=== PATIENT | male | born 1950 | race Hispanic/Latino ===

== ENCOUNTER 2018-05-11 10:44 | Inpatient (IN) | payer MEDICARE, BC ==
--- NOTE | 2018-05-11 11:34 | ED PDOC ---
Arrival/HPI - General Chief Complaint: Chest Pain Time Seen by Provider: 05/11/18 11:13 Historian: Patient, Spouse () - History of Present Illness Narrative History of Present Illness (Text): 05/11/18 11:34 A 67 year old male, whose past medical history includes lymphoma for 40 yrs(chronic swelling to lower extremities bilaterally), presents to the emergency department complaining of chest pain and shortness of breath. Was seen by Dr. Vigil, who, per patient, stated he may have myloma and was referred to Dr. Tao, Patient denies any abdominal pain, or any other complaints at this time. Mentions he takes 10 pills of Aspirin per day (5 in the morning, 5 in the evening, 4000 mg in total, for the past 10 yrs). PMD: Dr. Garcia Production Line Technician: Dr. Vigil Past Medical History - Provider Review Nursing Documentation Reviewed: Yes - Cardiac Hx Hypertension: Yes - Musculoskeletal/Rheumatological Hx Musculoskeletal Disorders: Yes Other/Comment: Lympedema - Psychiatric Hx Substance Use: No - Anesthesia Hx Anesthesia: No Hx Anesthesia Reactions: No Hx Malignant Hyperthermia: No Family/Social History - Physician Review Nursing Documentation Reviewed: Yes Family/Social History: No Known Family HX Smoking Status: Never Smoked Hx Alcohol Use: No Hx Substance Use: No Allergies/Home Meds Allergies/Adverse Reactions: Allergies No Known Allergies Allergy (Verified 05/11/18 10:53) Home Medications: Home Meds Medication Instructions Recorded Confirmed Aspirin/Caffeine [Anacin 400-32 mg 5 tab PO [facility] 05/11/18 05/11/18 Tablet] Dicloxacillin [Dynapen] 500 mg PO BID PRN 05/11/18 05/11/18 Levofloxacin [Levaquin] 500 mg PO BID PRN 05/11/18 05/11/18 Review of Systems - Physician Review All systems were reviewed & negative as marked: Yes - Review of Systems Respiratory: SOB Cardiovascular: Chest Pain Gastrointestinal: absent: Abdominal Pain Physical Exam - Physical Exam Narrative Physical Exam (Text): Gen: VS reviewed, alert, well developed, well nourished, nontoxic, mild dis tress. ENT: normal pharynx. Eye: EOMI, PERRL. Neck: no JVD, supple, no adenopathy. CV: regular rate, regular rhythm, no rubs, no murmur, no gallops, S1, S2, pulses equal and strong. Pulm: no distress, clear to auscultation, no wheeze, no rhonchi, breath sounds equal, no rales. Abd: soft, nontender, no guarding, no rebound, no rigidity, normal bowel sounds. Ext: lymphoma edema to lower extremities bilaterally. Skin: good color, no rash, no cyanosis. Psych: responds appropriately to questions, normal affect. Neuro: oriented x 3, CN2-12 intact grossly, motor intact, sensation intact. Vital Signs Temp Pulse Resp BP Pulse Ox 05/11/18 11:06 97.5 F L 79 18 168/98 H 100 Medical Decision Making ED Course and Treatment: 05/11/18 11:35 Impression: 67 year old male with chest pain and shortness of breath. Plan: -- Angio Chest CT -- Labs -- Reassess and disposition Progress Notes: 05/11/18 16:[address] garcia, tele obs, patient to be admitted for intractable pain of the chest. patient is currently being worked up for multiple myeloma. consult to dr. villalobos. patient already takes 5 aspirin BID, i attempted to address to the patient that is too much aspirin but the patient has it wrapped in his own opinion that this is ok 05/11/18 16:23 - RAD Interpretation Narrative RAD Interpretations (Text): 05/11/2018 14:[address] IMPRESSION: No evidence of acute central pulmonary embolus. Small right-sided effusion and mild right basilar atelectasis. Minor left basilar atelectasis with questionable trace left effusion There is apparent diffuse demineralization however there are more lucent areas throughout the visualized thoracic spine including the ribs and sternum.. Clinical correlation recommended to exclude the possibility of a infiltrative marrow disease process including but not limited to lymphoma -leukemia or myeloma. Dictator: Rocky Gardner DO Radiology Orders: 05/11/18 11:26 ANGIO CHEST PE PROTOCOL [CT] Stat - EKG Interpretation EKG Interpretation (Text): 05/11/18 12:42 11:02: NSR AT 86 BPM,NML QRS,NML AXIS,NO acute sttw abn Interpreted by ED Physician: Yes - Scribe Statement The provider has reviewed the documentation as recorded by the John Zhu Provider Scribe Attestation: All medical record entries made by the Scribe were at my direction and personally dictated by me. I have reviewed the chart and agree that the record accurately reflects my personal performance of the history, physical exam, medical decision making, and the department course for this patient. I have also personally directed, reviewed, and agree with the discharge instructions and disposition. Disposition/Present on Arrival - Present on Arrival Any Indicators Present on Arrival: No History of DVT/PE: No History of Uncontrolled Diabetes: No Urinary Catheter: No History of Decub. Ulcer: No History Surgical Site Infection Following: None - Disposition Have Diagnosis and Disposition been Completed?: Yes Diagnosis: Chest pain Disposition: HOSPITALIZED Disposition Time: 16:20 Patient Plan: Observation Patient Problems: Current Active Problems Problem Status Onset Chest pain Acute Condition: STABLE Discharge Instructions (ExitCare): Chest Pain (ED) Forms: [facility] (Danish)
[2018-05-11 11:49] LABS: BASO # 0.02 K/mm3 (0.0-2.0); BASO % 0.3 % (0.0-3.0); EOS # 0.1 (0.0-0.7); EOS % 1.4 % (1.5-5.0); HEMOGLOBIN 10.5 g/dL (14.0-18.0); LYMPH # 1.3 (1.2-3.4); LYMPH % 19.8 % (22.0-35.0); MEAN CELL VOLUME 94.7 fl (80.0-105.0); MEAN CORPUSCULAR HEMOGLOBIN 30.7 pg (25.0-35.0); MEAN CORPUSCULAR HGB CONC 32.4 g/dl (31.0-37.0); MEAN PLATELET VOLUME 9.2 fl (7.0-11.0); MONO # 0.4 (0.1-0.6); RBC 3.42 10^6/uL (3.5-6.1); RED CELL DISTRIBUTION WIDTH 16.2 % (11.5-14.5); WHITE BLOOD COUNT 6.5 10^3/uL (4.5-11.0)
[2018-05-11 11:52] LABS: INR 1.35; PARTIAL THROMBOPLASTIN TIME 47.2 Seconds (26.9-38.3); PROTHROMBIN TIME 15.3 SECONDS (9.4-12.5)
[2018-05-11 11:54] LABS: ALB/GLOB RATIO 0.7 (1.1-1.8)
[2018-05-11 11:58] LABS: ALBUMIN 4.2 g/dL (3.0-4.8); ALT/SGPT < 6 U/L (7-56); AST/SGOT 28 U/L (17-59); BLOOD UREA NITROGEN 25 mg/dL (7-21); GFR NON-AFRICAN AMERICAN > 60
[2018-05-11 12:05] LABS: TROPONIN I < 0.01 ng/mL
--- NOTE | 2018-05-11 14:31 | CT ---
Date of service: 05/11/2018 PROCEDURE: CT Chest with contrast (Pulmonary Angiogram) HISTORY: Pulmonary embolism COMPARISON: None available. TECHNIQUE: Axial computed tomography images were obtained of the chest in the pulmonary arterial phase of enhancement. Coronal and sagittal reformatted images were created and reviewed. Intravenous contrast dose: Radiation dose: Total exam DLP = 443.29 mGy-cm. This CT exam was performed using one or more of the following dose reduction techniques: Automated exposure control, adjustment of the mA and/or kV according to patient size, and/or use of iterative reconstruction technique. FINDINGS: PULMONARY ARTERIES: The visualized pulmonary trunk, right and left main, lobar, segmental and proximal subsegmental branches of the pulmonary arteries are well opacified with no definitive filling defects seen suggest acute central pulmonary embolus. Pulmonary trunk measures approximately 2.6 cm. AORTA: Heart is enlarged.. No thoracic aortic aneurysm. Ascending thoracic aorta measures approximately 3.7 cm. Descending thoracic aorta measures approximately 2.7 cm. Mild aortic atherosclerotic calcification or mural plaque present. LUNGS: Patchy ground-glass opacity seen in the upper and lower lobes of; rule out air trapping of. In addition, there is a small right-sided effusion with mild right basilar atelectasis. Minimal left basilar atelectasis questionable trace left effusion. PLEURAL SPACES: As above. No pneumothorax. HEART: Heart is enlarged. There may be a small amount of fluid in the superior pericardial recess. No cardiomegaly. No significant pericardial effusion. LYMPH NODES: No significant mediastinal or hilar lymphadenopathy. Trachea midline and patent with no large central endoluminal lesions There is a small hiatal hernia. BONES, CHEST WALL: There is apparent diffuse demineralization however there are more lucent areas throughout the visualized thoracic spine including the ribs and sternum.. Clinical correlation recommended to exclude the possibility of a infiltrative marrow disease process including but not limited to lymphoma -leukemia or myeloma. OTHER FINDINGS: Unremarkable. . IMPRESSION: No evidence of acute central pulmonary embolus. Small right-sided effusion and mild right basilar atelectasis. Minor left basilar atelectasis with questionable trace left effusion There is apparent diffuse demineralization however there are more lucent areas throughout the visualized thoracic spine including the ribs and sternum.. Clinical correlation recommended to exclude the possibility of a infiltrative marrow disease process including but not limited to lymphoma -leukemia or myeloma.
--- NOTE | 2018-05-11 15:33 | CARD ---
APPROVED REPORT Date of service: 05/11/2018 EKG Measurement Heart [id number] <Conclusion> Normal sinus rhythm Normal ECG
[2018-05-11] MEDS ORDERED: Oxycodone/Acetaminophen 5/325 mg Tab PO STA ×2 (16:05→16:21)
[2018-05-11] MEDS: Oxycodone/Acetaminophen 5/325 mg Tab PO SCH ×2 (19:09→21:20)
[2018-05-11 20:03] VITALS: BMI 44.3
[2018-05-12] MEDS: Oxycodone/Acetaminophen 5/325 mg Tab PO SCH ×6 (01:21→21:04)
--- NOTE | 2018-05-12 01:45 | HP ---
DATE OF EXAM: 05/11/2018 HISTORY OF PRESENT ILLNESS: A 67-year-old white male with history of bilateral lymphedema, mild hypertension. Patient initially has been found because of sternal pain to have a serum protein electrophoresis that was positive for a large M spike suggesting with possible myeloma. Patient was being evaluated for possible bone marrow and Hematology evaluation. He developed worsening severe chest pain and some shortness of breath, came to emergency room and was found to have lytic lesions in the chest wall. First troponin was negative. Patient has been taking excessive doses of aspirin at home for many, many years. This will be held, so that the patient can have a bone marrow examination done and for cardiac evaluation. Patient also has a history of valvular heart disease and sees Dr. Thapa. Patient's symptoms have started approximately 1 to 2 weeks prior to admission with worsening sternal pain. Patient has no travel history. He is nonsmoker, nondrinker. He takes minimal medications, occasional antibiotics for cellulitis due to his lymphedema. REVIEW OF SYSTEMS: Positive for chest pain and shortness of breath. He denies any nausea, vomiting, or diarrhea. For GI, he denies. For pulmonary, he admits to shortness of breath. No sputum production. No hemoptysis. No wheezing. Cardiac is positive only for chest wall pain. No palpitations. No orthopnea. No dyspnea on exertion. No lightheadedness or dizziness. Neurological exam is essentially negative for headache. Negative for loss of strength or sensations in the upper and lower extremities. No syncope. Musculoskeletal is positive for chest wall pain and sternal pain. PHYSICAL EXAMINATION GENERAL: Shows a well developed, but obese white male in mild distress. HEENT: Essentially within normal limits. HEART: Reveals regular sinus rhythm, but systolic ejection murmur at left sternal border. CHEST: Clear to auscultation and percussion. There is tenderness on palpation of the sternum and the ribs. ABDOMEN: Obese, but benign. No hepatosplenomegaly. EXTREMITIES: Show marked lymphedema without cellulitis. NEUROLOGY: Grossly intact. IMPRESSION AND PLAN: A 67-year-old white male presenting with multiple lytic bony lesions, elevated total protein level, albumen positive, serum protein electrophoresis for an M spike, valvular heart disease, and nonspecific chest pain. Kavon Garcia MD [facility] # [id number]
[2018-05-12 07:03] LABS: IRON 61 ug/dL (45-180)
[2018-05-12 07:12] LABS: % IRON SATURATION 27 % (20-55); TOTAL IRON BINDING CAPACITY 224 ug/dL (261-462)
[2018-05-12 07:19] LABS: ALB/GLOB RATIO 0.8 (1.1-1.8); ALBUMIN 3.9 g/dL (3.0-4.8); ALT/SGPT < 6 U/L (7-56); AST/SGOT 45 U/L (17-59); BLOOD UREA NITROGEN 18 mg/dL (7-21); CALCIUM 10.8 mg/dL (8.4-10.5); GFR NON-AFRICAN AMERICAN > 60
[2018-05-12] MEDS ORDERED: Propofol 10 mg/ml Inj (20 ML) ONE (08:16)
[2018-05-12] MEDS ORDERED: Sodium Chloride 0.9% 100 ML IV SCH (09:30)
--- NOTE | 2018-05-12 09:35 | CON ---
DATE: 05/12/2018 REASON FOR CONSULTATION: Lytic lesion in the bones, rule out multiple myeloma. HISTORY OF PRESENT ILLNESS: Mr. Sears is a 67-year-old male admitted to the hospital with chest pain. He is complaining of chest pain around the chest. CT chest showed multiple lytic lesions. He is having chest pain for the past 2 weeks. He is not able to lay flat. Denies any back pain. He has chronic lymphedema of lower extremities for 40 years. PAST MEDICAL HISTORY: Hypertension, lymphedema, and chronic morbid obesity. PAST SURGICAL HISTORY: None. FAMILY HISTORY: Nonsmoker. No history of alcohol abuse. ALLERGIES: NO KNOWN DRUG ALLERGIES. HOME MEDICATIONS: Aspirin, Dynapen 500 mg p.o. twice a day and Levaquin 500 mg p.o. twice a day. REVIEW OF SYSTEMS: As per HPI. Rest of 12-point review of systems reviewed and negative. PHYSICAL EXAMINATION: GENERAL: Comfortable in bed, in no acute distress. VITAL SIGNS: Temperature 97.5, heart rate 79.5, respiratory rate 18 per minute and blood pressure 160/90 and pulse oximetry 100% on room air. Morbidly obese. No acute distress. CHEST: Air entry present and equal bilaterally. No added sounds. CARDIOVASCULAR: S1 and S2, normal. No murmur. No gallop. ABDOMEN: Soft and nontender. No hepatosplenomegaly. EXTREMITIES: Bilateral lymphedema. Chronic skin thickening. No active cellulitis. CENTRAL NERVOUS SYSTEM: Alert and oriented x3. No focal sensory motor deficit. Lymphadenopathy none. LABORATORY DATA: White count 6.5, hemoglobin 10.5, hematocrit 30.2 and platelets 249. Sodium 142, potassium 4.4, creatinine 1.1, calcium 10.8, calcium on admission 11, LDH 336. LFTs are within normal limits. Iron 61 and iron saturation 27. ASSESSMENT: 1. Lytic lesion in the rib cage. 2. Morbid obesity. 3. Hypertension. PLAN: Mr. Sears is a 67-year-old male. All the records on the [facility] reviewed. Review of records showed that his hemoglobin was normal until last year, he is anemic now with hemoglobin of 10.5. Calcium is elevated at 11. LDH normal with lytic lesion in the bone. We will do the workup for myeloma as serum protein electrophoresis immunofixation kappa and lambda light-chain assay, beta-2 microglobulin. Skeletal survey ordered for assessment of lytic lesions. We will await the bone survey, might need bone marrow aspiration biopsy. We will also order PFA with the next blood draw. Beta-2 microglobulin also ordered. I had discussed at length with Mr. Sears about the workup for multiple myeloma. He agreed with the plan. Thank you Dr. Garcia for allowing us to participate in Mr. Sears's care. Corinne Godinez MD
--- NOTE | 2018-05-12 11:25 | RAD ---
Date of service: 05/12/2018 PROCEDURE: Bone survey complete HISTORY: lytic lesions COMPARISON: TECHNIQUE: A complete bone survey was performed FINDINGS: Small well-defined lytic lesions can be seen in the skull. Lytic lesions are also seen in the distal humerus bilaterally with scalloping of the medullary surface of the cortical bone. Degenerative changes are seen in the lumbar spine with bony sclerosis at L2-3 on the right side. IMPRESSION: Lytic lesions in the skull and distal humerus
[2018-05-12 13:05] LABS: FERRITIN 69.3 ng/mL
--- NOTE | 2018-05-12 15:27 | PN ---
DATE: 05/12/2018 SUBJECTIVE: A 67-year-old white male admitted to the hospital with chest pain, back pain, and nausea. The patient was found to have a M spike on serum protein electrophoresis consistent with some multiple myeloma. The patient also found to have a CAT scan of the chest showing severe and cystic changes most likely cause of the chest pain. The patient also has a calcium of 11. The patient was restarted on IV hydration to control his calcium. Case was discussed with for possible treatments of hypercalcemia in a patient with myeloma. Renal function is stable at 18 and 1.1. Hemoglobin is down to 10.5. White count is 6.5. Total protein is over 10. Yesterday, the patient has an M spike on his serum protein electrophoresis and the patient is having a bone scan. Kavon Garcia MD
[2018-05-12] MEDS ORDERED: Sodium Chloride 0.9% 1,000 ML IV SCH (19:00)
--- NOTE | 2018-05-12 21:14 | CARD ---
APPROVED REPORT Date of service: 05/12/2018 EXAM: Two-dimensional and M-mode echocardiogram with Doppler and color Doppler. INDICATION Chest Pain 2D DIMENSIONS Left Atrium (2D)4.5 (1.6-4.0cm)IVSd1.4 (0.7-1.1cm) LVDd4.3 (3.9-5.9cm)LVOT Diameter1.8 (1.8-2.4cm) PWd1.3 (0.7-1.1cm)LVDs2.9 (2.5-4.0cm) FS (%) 32.5 %LVEF (%)61.1 (>50%) M-Mode DIMENSIONS Aortic Root2.80 (2.2-3.7cm)Aortic Cusp Exc.1.30 (1.5-2.0cm) Aortic Valve AoV Peak Vpntdlyb282.0cm/sAoV VTI54.9cmAO Peak GR.30mmHg LVOT Peak Mcxizpon513.0cm/sLVOT VTI33.10cmAO Mean GR.16mmHg ISAURO (VMAX)1.59gv7ZTP (VTI)1.53cm2 Mitral Valve MV E Wppyueqv72.9cm/sMV A Nositvdc758.0cm/sE/A ratio0.9 TDI Lateral E' Peak V12.60cm/sMedial E' Peak V8.68cm/sE/Lateral E'6.9 E/Medial E'10.0 Pulmonary Valve PV Peak Fdmtyfmm40.4cm/sPV Peak Grad.3mmHg Tricuspid Valve TR Peak Xeltyctk787ko/sRAP MGHJIBZP51ptWcPY Peak Gr.28mmHg [id number] LEFT VENTRICLE The left ventricle is normal size. There is mild concentric left ventricular hypertrophy. The left ventricular function is normal. The left ventricular ejection fraction is within the normal range. There is normal LV segmental wall motion. Transmitral Doppler flow pattern is Grade I-abnormal relaxation pattern. RIGHT VENTRICLE The right ventricle is normal size. There is normal right ventricular wall thickness. The right ventricular systolic function is normal. ATRIA The left atrium is mildly dilated. The right atrium size is normal. AORTIC VALVE The aortic valve is moderately sclerotic. There is trace aortic regurgitation. There is mild valvular aortic stenosis. MITRAL VALVE The mitral valve is mildly thickened. There is no mitral valve regurgitation noted. There is no mitral valve stenosis. TRICUSPID VALVE There is mild tricuspid regurgitation. There is mild pulmonary hypertension. PULMONIC VALVE There is trace pulmonic valvular regurgitation. GREAT VESSELS The aortic root is normal in size. The IVC is normal in size and collapses >50% with inspiration. <Conclusion> There is mild concentric left ventricular hypertrophy. The left ventricular function is normal. The left ventricular ejection fraction is within the normal range. There is normal LV segmental wall motion. Transmitral Doppler flow pattern is Grade I-abnormal relaxation pattern. There is mild valvular aortic stenosis. There is mild tricuspid regurgitation. There is mild pulmonary hypertension.
[2018-05-13] MEDS: Oxycodone/Acetaminophen 5/325 mg Tab PO SCH ×4 (01:15→10:04)
[2018-05-13] MEDS: Sodium Chloride 0.9% 1,000 ML IV SCH ×3 (03:00→20:00)
[2018-05-13] MEDS ORDERED: Pantoprazole 40 mg EC Tab PO SCH (06:00)
[2018-05-13] MEDS: Calcium-Vit D 250 mg-125 Units Tab UD PO SCH (10:08)
[2018-05-13] MEDS ORDERED: Zoledronic Acid 4 MG in Sodium Chloride 0.9% 100 ML IV ONE (10:30)
[2018-05-13 11:36] LABS: ALBUMIN (PEP) 2.9 g/dL (3.8-4.8); ALPHA-1-GLOBULIN (PEP) 0.3 g/dL (0.2-0.3)
--- NOTE | 2018-05-13 13:40 | PN ---
DATE: 05/13/2018 SUBJECTIVE: A 67-year-old white male admitted to the hospital with severe chest pain, hyperproteinemia, found to have multiple myeloma awaiting bone marrow examination. Bone scan yesterday showed multiple lytic lesions, severe chest pain, sternal pain, rib pain and back pain. The patient is afebrile. Vital signs are stable. His calcium level has dropped. He is being hydrated. He is for a bone marrow today and possible beginning of treatment to alleviate the pain. PHYSICAL EXAMINATION GENERAL: Shows a well developed obese white male in moderate pain 6/10 when moving and 8/10 with coughing or congestion. CHEST: Clear to auscultation and percussion. HEART: Regular sinus rhythm. EXTREMITIES: Still chronic lymphedema. Kavon Garcia MD
[2018-05-13] MEDS: oxyCODONE 5 mg Immediate Release Tab PO PRN (15:28)
[2018-05-13] MEDS ORDERED: Midazolam 2 MG/2 ML VIAL ONE (18:24)
[2018-05-13] MEDS ORDERED: Lidocaine 1% 5ml Abboject ONE (18:25)
[2018-05-13] MEDS ORDERED: Midazolam 2 MG/2 ML VIAL IVP ONE (18:45)
[2018-05-13] MEDS ORDERED: Lidocaine 5% Patch TD STA (20:46)
--- NOTE | 2018-05-13 21:06 | CT ---
PROCEDURE: CT guided pelvic bone marrow aspiration and biopsy HISTORY: Multiple myeloma PHYSICIAN(S): Everton Win MD. TECHNIQUE: The relative risks and indications of the procedure were explained to the patient and his and consent obtained. The patient was placed prone on the CT scanner and preliminary images through the pelvis obtained. Conscious sedation and monitoring were provided throughout the procedure by a nurse. The right posterior superior iliac spine was selected for bone marrow aspiration and biopsy. A posterior approach was selected and the area prepped and draped in the usual sterile fashion. 1% Xylocaine was used to anesthetize the skin and soft tissues. An on control needle was advanced to the right posterior superior iliac spine and its position confirmed with CT. The needle was advanced through the cortex and a bone marrow aspiration performed. A blood clot was also obtained. Next a long core biopsy was performed with the on control needle. The patient tolerated the procedure well IMPRESSION: 1. CT-guided pelvic bone marrow aspiration and biopsy as described above.
--- NOTE | 2018-05-14 00:34 | CON ---
DATE: 05/13/2018 REQUESTING PHYSICIAN: Dr. Garcia REASON FOR CONSULTATION: Chest pain. HISTORY: This is a 67-year-old man known to me from prior evaluation with a history of chronic lymphedema and hypertension, who has had worsening of bony pain including retrosternal chest discomfort. Recent blood work showed elevated protein with a large M spike suggestive of myeloma. He has been admitted for evaluation. Cardiac evaluation was requested. PAST HISTORY: Notable for the problems mentioned above. MEDICATIONS AT HOME: Include aspirin and occasional antibiotic for leg cellulitis. ALLERGIES: NONE. SOCIAL HISTORY: Does not smoke or drink. He is , lives with his . FAMILY HISTORY: Unremarkable for premature heart disease. REVIEW OF SYSTEMS: Ten-point review of systems is notable for mainly problems mentioned above. He has had significant weight loss recently. PHYSICAL EXAMINATION: GENERAL: He is an obese middle-aged man. VITAL SIGNS: His blood pressure is 148/76 with pulse of 70 and sinus, respirations are 16. He is afebrile. HEENT: Normocephalic, atraumatic. NECK: Supple. CHEST: Few scattered rhonchi heard. HEART: PMI, reveals distant tones with no pathological murmur or gallops audible. ABDOMEN: Soft, obese, nontender, normoactive bowel sounds. EXTREMITIES: Chronic lymphedema changes. PSYCHIATRIC: Normal mood and affect. NEUROLOGIC: Alert and oriented x3. He does have diffuse body aches. DIAGNOSTIC DATA: White count 6.5, hemoglobin and hematocrit of 10.5 and 32.4 with a platelet count 249,000. PT and PTT of 15.3 and 47.2. Potassium 4.4. BUN and creatinine of 18 and 1.1. Calcium is 10.8. Two sets of cardiac enzymes are negative. Protein was 10.2. PSA 1.9. Electrocardiogram reveals sinus rhythm with no acute abnormalities. The echocardiogram reveals mild concentric LVH with normal LV size systolic function, mild aortic stenosis present. A bone density survey reveals multiple lytic lesions in the skull as well as distal humerus and ribs. IMPRESSION: 1. Chest pain, appears most consistent with bony pain in patient with high likelihood of multiple myeloma, doubt any cardiac role. 2. Mild aortic stenosis. 3. Chronic lymphedema. RECOMMENDATIONS: No further cardiac workup is necessary at the present time. The patient is scheduled for bone marrow biopsy later today. I agree with present management and plan. He is stable from a cardiac standpoint to proceed with this and any further workup necessary. Thank you for this consultation. We will be happy to see during his hospital course as needed. Adeel Thapa MD
[2018-05-14] MEDS: Pantoprazole 40 mg EC Tab PO SCH (09:38)
[2018-05-14] MEDS: Calcium-Vit D 250 mg-125 Units Tab UD PO SCH (09:38)
[2018-05-14 10:06] LABS: ALB/GLOB RATIO 0.7 (1.1-1.8); ALT/SGPT < 6 U/L (7-56); AST/SGOT 24 U/L (17-59); BLOOD UREA NITROGEN 11 mg/dL (7-21); GFR NON-AFRICAN AMERICAN > 60
--- NOTE | 2018-05-14 11:09 | PN ---
DATE: 05/14/2018 SUBJECTIVE: A 67-year-old white male admitted hospital with severe musculoskeletal pain due to cystic lesions from myeloma. The patient had positive serum protein electrophoresis for IgA. She had severe M spike. The patient also had a bone arrow done by Dr. Everton Win yesterday, the patient tolerating procedure well. The patient was given zoledronic acid by Dr. Godinez for stabilization of the bone metastases. The patient also has severe chest pain and back pain. PLAN: Discuss bone marrow and start myeloma PEPE. Kavon Garcia MD
[2018-05-14] MEDS: Sodium Chloride 0.9% 1,000 ML IV SCH (11:57)
[2018-05-14] MEDS: oxyCODONE 5 mg Immediate Release Tab PO PRN ×2 (12:13→23:02)
--- NOTE | 2018-05-14 14:03 | CP.PCM.APN ---
Subjective - Date & Time of Evaluation Date of Evaluation: 05/14/18 Time of Evaluation: 09:20 - Subjective Subjective: Pt. seen and examined , sitting up in chair, at bedside. Is s/p bone marrow bx, complaints of severe sternal pain rad around to back, denied dyspnea, appears uncomfortable. RR easy and unlabored. Objective - Vital Signs/Intake and Output Vital Signs (last 24 hours): Temp Pulse Resp BP Pulse Ox 99.2 F 88 20 151/90 H 99 05/14/18 08:31 05/14/18 08:31 05/14/18 08:31 05/14/18 08:31 05/14/18 08:31 Intake and Output: 05/14/18 05/14/18 06:59 18:59 Intake Total 100 Output Total 600 Balance -500 - Medications Medications: Current Medications Acetaminophen (Tylenol 325mg Tab) 650 mg PO Q4 PRN PRN Reason: Pain, Mild (1-3) Calcium/Vitamin D (Oscal-D 250 Mg-125 Units Tab) 1 tab PO DAILY [facility] Last Admin: 05/14/18 09:38 Dose: 1 tab Docusate Sodium (Colace) 100 mg PO DAILY [facility] Last Admin: 05/14/18 09:38 Dose: 100 mg Sodium Chloride (Sodium Chloride 0.9%) 1,000 mls @ 125 mls/hr IV .Q8H [facility] Last Admin: 05/14/18 11:57 Dose: 125 mls/hr Ondansetron HCl (Zofran Inj) 4 mg IVP Q6H PRN PRN Reason: Nausea/Vomiting Last Admin: 05/12/18 09:35 Dose: 4 mg Oxycodone HCl (Oxycodone Immediate Release Tab) 5 mg PO Q4H PRN PRN Reason: Pain, severe (8-10) Last Admin: 05/14/18 12:13 Dose: 5 mg Pantoprazole Sodium (Protonix Ec Tab) 40 mg PO ACB [facility] Last Admin: 05/14/18 09:38 Dose: 40 mg - Labs Labs: 05/11/18 11:24 05/14/18 08:00 PT 15.3 SECONDS (9.4-12.5) H 05/11/18 11:24 INR 1.35 05/11/18 11:24 APTT 47.2 Seconds (26.9-38.3) H 05/11/18 11:24 - Constitutional Appears: Well, Non-toxic - Head Exam Head Exam: NORMOCEPHALIC - Eye Exam Eye Exam: absent: Conjunctival injection, EOMI, Normal appearance, Nystagmus, Periorbital swelling, Periorbital tenderness, PERRL, Scleral icterus - ENT Exam ENT Exam: absent: Mucous Membranes Dry, Mucous Membranes Moist, Normal Exam, Normal External Ear Exam, Normal Oropharynx, TM's Normal Bilaterally - Neck Exam Neck Exam: Full ROM - Respiratory Exam Respiratory Exam: Clear to Ausculation Bilateral, NORMAL BREATHING PATTERN - Cardiovascular Exam Cardiovascular Exam: REGULAR RHYTHM, +S1, +S2 - GI/Abdominal Exam GI & Abdominal Exam: Soft, Normal Bowel Sounds - Rectal Exam Rectal Exam: Deferred - Exam Exam: absent: Circumcision, NORMAL INSPECTION, Scrotal Swelling, Testicular Tenderness, Uretheral Discharge, Testicular Vertical Lie, Bladder Distension External exam: absent: Ecchymosis, Erythema, Lacerations, Lesions, NORMAL EXTERNAL EXAM, Swelling Speculum exam: absent: Cervical Discharge, Erythema, Foreign Body, Laceration, NORMAL SPECULUM EXAM, Tissue, Vaginal Bleeding, Vaginal Discharge Bimanual exam: absent: Adenexal Mass, Adnexal, Cervical Motion Tendernes, NORMAL BIMANUAL EXAM, Uterine Enlargement, Uterine Tenderness - Extremities Exam Additional comments: chronic lymphedema noted B/L - Neurological Exam Neurological Exam: Alert, Awake, Oriented x3 - Psychiatric Exam Psychiatric exam: Anxious - Skin Skin Exam: Normal Color, Warm Assessment and Plan - Assessment and Plan (Free Text) Assessment: ITS Impressions Chest CT 05/11/18 11:26 IMPRESSION: No evidence of acute central pulmonary embolus. Small right-sided effusion and mild right basilar atelectasis. Minor left basilar atelectasis with questionable trace left effusion There is apparent diffuse demineralization however there are more lucent areas throughout the visualized thoracic spine including the ribs and sternum.. Clinical correlation recommended to exclude the possibility of a infiltrative marrow disease process including but not limited to lymphoma -leukemia or myeloma. Bone Density Survey 05/12/18 09:00 IMPRESSION: Lytic lesions in the skull and distal humerus Bone Marrow Biopsy w/ CT 05/13/18 10:35 IMPRESSION: 1. CT-guided pelvic bone marrow aspiration and biopsy as described above. Assessment: 67 yr.old male w. PMH Htn, chronic lymphedema, valvular heart disease who present w complaints of sternal chest discomfort, shortness of breath, and weakness, had recent electrophoresis completed , resulted w. Large M spike, suggestive of multiple myeloma, admitted now for evaluation, with oncology and cardiology consulted. Plan: 1. Sternal chest pain, Cardiac cause ruled out per cardiology, continue with pain Rx as ordered. 2. Lytic lesions, likely mets from mult myeloma, Oncology following, rec. outpatient follow up. 3. WEakness- likely r/t multiple myeloma, PT rec. TCU for rehab., TCU eval pending. Will continue to discuss with PMD, consultants, will follow closely and monitor clinical status.
--- NOTE | 2018-05-15 00:09 | CP.PCM.PN ---
Subjective - Date & Time of Evaluation Date of Evaluation: 05/13/18 Time of Evaluation: 08:00 - Subjective Subjective: Pain better controlled. Skeletal survey showed lytic lesion in Skull, B/L humerous. SPEP showed M protein IgA at 3.7 gm/dl. renal functions normal. He is out of bed sitting in chair. Objective - Vital Signs/Intake and Output Vital Signs (last 24 hours): Temp Pulse Resp BP Pulse Ox 100.4 F H 88 19 155/82 H 95 05/14/18 18:14 05/14/18 17:00 05/14/18 17:00 05/14/18 17:00 05/14/18 17:00 - Medications Medications: Current Medications Acetaminophen (Tylenol 325mg Tab) 650 mg PO Q4 PRN PRN Reason: Pain, Mild (1-3) Last Admin: 05/14/18 18:14 Dose: 650 mg Calcium/Vitamin D (Oscal-D 250 Mg-125 Units Tab) 1 tab PO DAILY [facility] Last Admin: 05/14/18 09:38 Dose: 1 tab Docusate Sodium (Colace) 100 mg PO DAILY [facility] Last Admin: 05/14/18 09:38 Dose: 100 mg Sodium Chloride (Sodium Chloride 0.9%) 1,000 mls @ 125 mls/hr IV .Q8H [facility] Last Admin: 05/14/18 11:57 Dose: 125 mls/hr Ondansetron HCl (Zofran Inj) 4 mg IVP Q6H PRN PRN Reason: Nausea/Vomiting Last Admin: 05/12/18 09:35 Dose: 4 mg Oxycodone HCl (Oxycodone Immediate Release Tab) 5 mg PO Q4H PRN PRN Reason: Pain, severe (8-10) Last Admin: 05/14/18 23:02 Dose: 5 mg Pantoprazole Sodium (Protonix Ec Tab) 40 mg PO ACB [facility] Last Admin: 05/14/18 09:38 Dose: 40 mg - Labs Labs: 05/11/18 11:24 05/14/18 08:00 PT 15.3 SECONDS (9.4-12.5) H 05/11/18 11:24 INR 1.35 05/11/18 11:24 APTT 47.2 Seconds (26.9-38.3) H 05/11/18 11:24 - Constitutional Appears: Well, Non-toxic - Head Exam Head Exam: ATRAUMATIC, NORMAL INSPECTION, NORMOCEPHALIC - Eye Exam Eye Exam: Normal appearance - ENT Exam ENT Exam: Mucous Membranes Moist, Normal Exam - Neck Exam Neck Exam: Normal Inspection - Respiratory Exam Respiratory Exam: Clear to Ausculation Bilateral, NORMAL BREATHING PATTERN - Cardiovascular Exam Cardiovascular Exam: REGULAR RHYTHM, +S1, +S2 - GI/Abdominal Exam GI & Abdominal Exam: Soft, Normal Bowel Sounds - Extremities Exam Extremities Exam: Pedal Edema - Back Exam Back Exam: NORMAL INSPECTION - Neurological Exam Neurological Exam: Alert, Awake, CN II-XII Intact, Normal Gait, Oriented x3 - Skin Skin Exam: Normal Color, Warm Assessment and Plan - Assessment and Plan (Free Text) Assessment: 1. Multiple myeloma. Lytic lesions in skull, B/L humerous. Zometa 4 mg IV to be given over 1 hr in 250 ml of NS. Bone marrow aspiration, biopsy scheduled with IR , Dr. Win. bedside. discussed in detail mutliple myeloma, work up, treatment options including auto BMT. answered all their questions to their satisfaction. further work up will be done after bone marrow biopsy confirmation of myeloma. CT-PET will be scheduled upon discharge from hospital. 2. anemia : related to myeloma. normal iron studies. 3. renal : normal renal functions. Calcium elevated. On IV hydration. hypercalcemia should resolve after zometa. 4. Pain controlled on prn meds. Thank you Dr. Garcia for allowing us to participate in his care.
[2018-05-15] MEDS: Sodium Chloride 0.9% 1,000 ML IV SCH (03:31)
[2018-05-15] MEDS: Pantoprazole 40 mg EC Tab PO SCH (08:06)
[2018-05-15 08:12] VITALS: BP 136/79; PULSE 89; RESP 20; TEMP 99.2; O2SAT 97
[2018-05-15] MEDS: Calcium-Vit D 250 mg-125 Units Tab UD PO SCH (09:17)
[2018-05-15 09:24] LABS: HEMOGLOBIN 8.9 g/dL (14.0-18.0); LYMPH # 0.3 (1.2-3.4); LYMPH % 7.5 % (22.0-35.0); MEAN CELL VOLUME 93.5 fl (80.0-105.0); MEAN CORPUSCULAR HEMOGLOBIN 30.5 pg (25.0-35.0); MEAN CORPUSCULAR HGB CONC 32.6 g/dl (31.0-37.0); MEAN PLATELET VOLUME 9.2 fl (7.0-11.0); MONO # 0.4 (0.1-0.6); MONO % 10.1 % (1.0-6.0); RBC 2.92 10^6/uL (3.5-6.1); RED CELL DISTRIBUTION WIDTH 15.9 % (11.5-14.5); WHITE BLOOD COUNT 3.5 10^3/uL (4.5-11.0)
[2018-05-15] MEDS ORDERED: cefTRIAXone 1 gm 1 GM/100 ML BAG IVPB SCH (10:00)
--- NOTE | 2018-05-15 10:28 | RAD ---
Date of service: 05/15/2018 HISTORY: fever COMPARISON: No prior. FINDINGS: LUNGS: No active pulmonary disease. PLEURA: No significant pleural effusion identified, no pneumothorax apparent. CARDIOVASCULAR: Aortic calcification Mild cardiomegaly. No pulmonary vascular congestion. OSSEOUS STRUCTURES: No significant abnormalities. VISUALIZED UPPER ABDOMEN: Normal. OTHER FINDINGS: None. IMPRESSION: No active disease.
--- NOTE | 2018-05-15 11:16 | PN ---
DATE: 05/15/2018 SUBJECTIVE: A 67-year-old white male admitted to the hospital with severe chest pain and was found to have lytic lesions consistent with multiple myeloma. Serum protein electrophoresis shows large M spike IgA kappa. The patient is status post bone marrow examination, awaiting results, has somewhat less . PHYSICAL EXAMINATION VITAL SIGNS: last night. CHEST: Clear to auscultation. HEART: Regular sinus rhythm. EXTREMITIES: Show chronic lymphedema with no evidence of cellulitis. ASSESSMENT AND PLAN: The patient will have a septic workup, also has started physical therapy , possible transfer pending results of his CBC, blood culture, urinalysis and chest x-ray. Kavon Garcia MD
[2018-05-15 11:33] LABS: URINE BILIRUBIN NEGATIVE (NEGATIVE); URINE BLOOD SMALL (NEGATIVE); URINE GLUCOSE (UA) NEGATIVE (NEGATIVE); URINE LEUKOCYTE ESTERASE NEGATIVE Leu/uL (NEGATIVE); URINE PROTEIN NEGATIVE mg/dL (<30 mg/dL); URINE UROBILINOGEN 0.2 E.U./dL (<1 E.U./dL)
[2018-05-15 11:34] LABS: URINE APPEARANCE CLEAR (CLEAR); URINE COLOR YELLOW (YELLOW)
[2018-05-15 11:52] LABS: URINE BACTERIA SMALL /hpf; URINE WBC 0 - 2 /hpf (0-6)
== END 2018-05-15 14:23 | DRG 841 ==
LOC: ED 10:44 → INTOOBSV 16:21 → ERH 16:21 → 3RNO 18:25 → OBSVTOIN 05-12 16:18
PROVIDERS: ADMIT Internal Medicine; ATTEND Internal Medicine
PROC: BR2C1ZZ Computerized Tomography (CT Scan) of Pelvis using Low Osmolar Contrast (ICD-10-PCS; 2018-05-13)
PROC: 07DR3ZX Extraction of Iliac Bone Marrow, Percutaneous Approach, Diagnostic (ICD-10-PCS; principal; 2018-05-13 16:00)
DX: C90.00 Multiple myeloma not having achieved remission (principal); J98.11 Atelectasis; Z68.41 Body mass index [BMI] 40.0-44.9, adult; L03.119 Cellulitis of unspecified part of limb; I89.0 Lymphedema, not elsewhere classified; E66.01 Morbid (severe) obesity due to excess calories; I10 Essential (primary) hypertension; E83.52 Hypercalcemia; E88.09 Other disorders of plasma-protein metabolism, not elsewhere classified; D64.9 Anemia, unspecified; I35.0 Nonrheumatic aortic (valve) stenosis

== ENCOUNTER 2018-05-15 14:26 | Inpatient (IN) | payer OTHER, BC ==
[2018-05-15] MEDS ORDERED: Sodium Chloride 0.9% 1,000 ML IV SCH (14:45)
[2018-05-15 15:44] VITALS: BMI 46.3
[2018-05-15] MEDS ORDERED: cefTRIAXone 1 gm 1 GM/100 ML BAG IVPB STA (16:20)
--- NOTE | 2018-05-15 16:49 | CP.PCM.PCO ---
Assessment/Plan Progress Note - Assessment/Plan Assessment (Free Text): House Doctor Erika Guzmán DO, PGY-2: House doctor response to a patient in Transitional Care Unit with worsening dyspnea and cough Patient with chronic LE lymphedema, newly diagnosed Multiple Myeloma, who is in TCU who complained of worsening shortness of breath and cough as of today. Nurse paged house doctor and informed primary physician, Dr. Garcia, that patient was short of breath, had audible crackles, and oxygen saturation in the low 90s. Patient was given 40 mg of IVP Lasix, IV fluids were stopped, and stat BNP was ordered by primary. I agree with current plan. Patient would benefit from additional diuresis. Review of chest X-ray performed today showed cardiomegaly and vascular congestion consistent with CHF exacerbation. The patient is obese and BNP may be falsely attenuated secondary to his obesity. As stated before, the patient would benefit from additional diuresis with 40 mg of Lasix IVP BID. Given the limited (restricted) depth of medical care provided to TCU patients, and the seeming acuity of the patient's issues, as I saw, naturally I would suggest the patient need closer monitoring in the hospital setting, perhaps; however, that remains a decision between the primary physician and the patient, unless the patient deteriorates or does not improve, in which case it may become a matter of medical necessity to transfer him to ED for further evaluation. I will endorse this case to the oncoming house physician to ensure close follow up in the interim.
[2018-05-16] MEDS: Pantoprazole 40 mg EC Tab PO SCH (05:27)
[2018-05-16] MEDS: cefTRIAXone 1 gm 1 GM/100 ML BAG IVPB SCH (05:28)
[2018-05-16] MEDS ORDERED: cefTRIAXone 1 gm 1 GM/100 ML BAG IVPB SCH (06:00)
[2018-05-16] MEDS: Calcium-Vit D 250 mg-125 Units Tab UD PO SCH (09:32)
--- NOTE | 2018-05-16 14:59 | PN ---
DATE: 05/16/2018 SUBJECTIVE: The patient has no complaints of any chest pain. No shortness of breath. He says he was more short of breath overnights. He was given Lasix. He does feel better. He has difficult time in sleeping. PHYSICAL EXAMINATION: VITAL SIGNS: Temperature 99.2, pulse 86, blood pressure 144/89, respirations 18 and O2 saturation 96%. GENERAL: The patient is lying in bed, flat, comfortable. HEENT: No oral lesion. Anicteric sclerae. Moist mucosa. NECK: No JVD, adenopathy, or thyromegaly. CARDIOVASCULAR: S1 and S2, regular. No murmurs, rubs, or gallops. LUNGS: Clear to auscultation bilaterally. No wheeze, rales, or rhonchi. ABDOMEN: Bowel sounds are positive, soft, nontender and nondistended. EXTREMITIES: No cyanosis, clubbing or edema. ASSESSMENT: 1. Acute congestive heart failure secondary to diastolic dysfunction. 2. Hypertension. 3. Obesity with body mass index of 46. PLAN: The patient is currently on losartan for his hypertension. He was given Lasix. I will continue his Lasix this morning. He is on calcium for replacement. He is receiving Rocephin for antibiotics. The patient is on tramadol for his pain. He is on heart healthy diet. The patient will get repeat blood work tomorrow. Aramis Harper MD
[2018-05-16] MEDS: oxyCODONE 5 mg Immediate Release Tab PO PRN (21:06)
[2018-05-17] MEDS: cefTRIAXone 1 gm 1 GM/100 ML BAG IVPB SCH (05:46)
[2018-05-17] MEDS: Pantoprazole 40 mg EC Tab PO SCH (05:47)
[2018-05-17] MEDS: oxyCODONE 5 mg Immediate Release Tab PO PRN ×2 (05:52→19:50)
[2018-05-17 07:16] LABS: HEMOGLOBIN 9.6 g/dL (14.0-18.0); MEAN CELL VOLUME 94.4 fl (80.0-105.0); MEAN CORPUSCULAR HEMOGLOBIN 30.1 pg (25.0-35.0); MEAN CORPUSCULAR HGB CONC 31.9 g/dl (31.0-37.0); MEAN PLATELET VOLUME 9.1 fl (7.0-11.0); RBC 3.19 10^6/uL (3.5-6.1); RED CELL DISTRIBUTION WIDTH 15.8 % (11.5-14.5); WHITE BLOOD COUNT 2.1 10^3/uL (4.5-11.0)
[2018-05-17 07:47] LABS: ALB/GLOB RATIO 0.7 (1.1-1.8); ALBUMIN 3.9 g/dL (3.0-4.8); ALT/SGPT 14 U/L (7-56); AST/SGOT 56 U/L (17-59); BLOOD UREA NITROGEN 16 mg/dL (7-21); CALCIUM 8.3 mg/dL (8.4-10.5); GFR NON-AFRICAN AMERICAN > 60
[2018-05-17] MEDS: Calcium-Vit D 250 mg-125 Units Tab UD PO SCH (09:14)
--- NOTE | 2018-05-17 18:50 | PN ---
DATE: 05/17/2018 SUBJECTIVE: The patient is seen sitting in chair on transitional care unit. He continues to have intense bony pain which makes it difficult for him to move or sleep. He had been on IV fluids recently, but developed dyspnea and hypoxemia. IV fluids were discontinued and Lasix was administered. His dyspnea is improved. His recent bone marrow biopsy was consistent with multiple myeloma. His current medications include Lasix 40 mg IV b.i.d., oxycodone, Protonix, and Rocephin. OBJECTIVE: GENERAL: He is an overweight middle-aged man. VITAL SIGNS: Blood pressure is 136/80 with pulse of 76, respirations are 18. He is afebrile. NECK: No JVD. CHEST: Crackles on the left base. HEART: PMI displaced laterally with systolic murmur at the base. ABDOMEN: Soft, nontender, normoactive bowel sounds. EXTREMITIES: No edema. DIAGNOSTIC DATA: Potassium 3.6, BUN and creatinine are 16 and 0.8. White count is 2.1, hemoglobin and hematocrit 9.6 and 30.1 with platelet count of 207,000. His alkaline phosphatase is 82, protein is 9.4. IMPRESSION: 1. Recent decompensated congestive heart failure, acute diastolic secondary to volume infusion and aortic stenosis. 2. Mild aortic stenosis, stable at present. 3. Recently diagnosed multiple myeloma. 4. Chronic lymphedema. RECOMMENDATIONS: IV diuretic therapy continue for 24 hours at which time oral administration can be initiated. Excessive volume infusion should be avoided. He was encouraged to increase his nutritional intake. Intensified analgesic therapy is as advised. We will follow along as needed. Adeel Thapa MD
[2018-05-18] MEDS: Pantoprazole 40 mg EC Tab PO SCH (05:21)
[2018-05-18] MEDS: cefTRIAXone 1 gm 1 GM/100 ML BAG IVPB SCH (05:21)
[2018-05-18] MEDS: Calcium-Vit D 250 mg-125 Units Tab UD PO SCH (09:40)
[2018-05-18] MEDS ORDERED: guaiFENesin 100 mg/5 ml Syrup UD PO STA (14:42)
[2018-05-18] MEDS ORDERED: Albuterol-Ipratrop 3 mg / 0.5 (3 ml) UD IH STA (14:42)
[2018-05-18] MEDS ORDERED: guaiFENesin 100 mg/5 ml Syrup UD PO PRN (14:45)
[2018-05-18 17:05] VITALS: TEMP 98
--- NOTE | 2018-05-18 20:20 | PN ---
DATE: 05/18/2018 SUBJECTIVE: A 67-year-old white male admitted with multiple cystic bone lesions with intractable chest pain, recently diagnosed as having multiple myeloma, status post bone marrow, and status post . Low-grade fever over the last several days. He is afebrile today. He is on IV antibiotics, also had an elevated BNP and some vascular congestion on chest x-ray consistent with an early congestive heart failure versus asthmatic bronchitis. The patient is on bronchodilators, antibiotics, and steroids White count is down to 2.1, platelet count is normal 207, and hemoglobin is 9.6. BUN and creatinine are stable. His calcium level has dropped to 8. He was hypercalcemic from myeloma. PHYSICAL EXAMINATION: GENERAL: Shows a well developed, but obese white male with some chronic lymphedema in the lower extremities. CHEST: Shows rhonchi and rales in both lung chisholm. CARDIOVASCULAR: Regular sinus rhythm with no S3, S4 or murmurs. NECK: There is no JVD. PLAN: Continue bronchodilators and antibiotics. Control blood pressure. Blood pressure currently is 151/87. Recheck the bone marrow biopsy in the morning. Kavon Garcia MD
[2018-05-18] MEDS: Albuterol-Ipratrop 3 mg / 0.5 (3 ml) UD IH SCH (20:42)
[2018-05-19] MEDS: Albuterol-Ipratrop 3 mg / 0.5 (3 ml) UD IH SCH ×4 (01:55→20:35)
[2018-05-19] MEDS: oxyCODONE 5 mg Immediate Release Tab PO PRN ×3 (04:23→19:54)
[2018-05-19] MEDS: cefTRIAXone 1 gm 1 GM/100 ML BAG IVPB SCH (05:15)
[2018-05-19] MEDS: Pantoprazole 40 mg EC Tab PO SCH (05:15)
[2018-05-19] MEDS ORDERED: cefTRIAXone 1 gm 1 GM/100 ML BAG IVPB SCH (10:00)
[2018-05-19] MEDS ORDERED: Morphine 30 mg SR Tab PO SCH (10:00)
[2018-05-19] MEDS: Calcium-Vit D 250 mg-125 Units Tab UD PO SCH (10:19)
--- NOTE | 2018-05-19 12:51 | PN ---
DATE: 05/19/2018 SUBJECTIVE: A 67-year-old white male with advanced multiple myeloma. PHYSICAL EXAMINATION: VITAL SIGNS: Stable. The patient is afebrile. Blood pressure 151/87. The patient is coughing up copious amounts of yellow green sputum, started on DuoNeb. He is on IV antibiotics. His calcium levels are better. His white count has slightly depressed to 2.1. His hemoglobin is 9.6, platelet count is 207. The patient will get a report from Dr. Everton Win. We will start chemo as per Dr. Godinez as soon as he is discharged from the hospital. Physical examination showed some rhonchi and rales at the left lower lobe. He has severe sternal pain and rib pain because of lytic lesions. He has also received and zoledronic acid. PLAN: To continue fentanyl patch p.o., Percocet for pain relief, IV antibiotics, bronchodilators, and physical therapy. Kavon Garcia MD
[2018-05-20] MEDS: Albuterol-Ipratrop 3 mg / 0.5 (3 ml) UD IH SCH ×4 (01:19→20:41)
[2018-05-20] MEDS: Pantoprazole 40 mg EC Tab PO SCH (05:40)
[2018-05-20] MEDS: cefTRIAXone 1 gm 1 GM/100 ML BAG IVPB SCH (05:40)
[2018-05-20 07:04] LABS: BASO # 0.01 K/mm3 (0.0-2.0); BASO % 0.3 % (0.0-3.0); EOS % 0.3 % (1.5-5.0); HEMOGLOBIN 10.1 g/dL (14.0-18.0); LYMPH # 0.7 (1.2-3.4); LYMPH % 21.2 % (22.0-35.0); MEAN CELL VOLUME 94.3 fl (80.0-105.0); MEAN CORPUSCULAR HEMOGLOBIN 30.4 pg (25.0-35.0); MEAN CORPUSCULAR HGB CONC 32.3 g/dl (31.0-37.0); MEAN PLATELET VOLUME 9.4 fl (7.0-11.0); MONO # 0.3 (0.1-0.6); MONO % 10.5 % (1.0-6.0); RBC 3.32 10^6/uL (3.5-6.1); WHITE BLOOD COUNT 3.1 10^3/uL (4.5-11.0)
--- NOTE | 2018-05-20 08:12 | CP.PCM.CON ---
History of Present Illness - History of Present Illness History of Present Illness: transferred from [facility]. BMA, bx consistent with multiple myeloma. Lytic lesions in bones, skull, b/l humerous. c/O Pain chest. not ambulating much. Review of Systems - Constitutional Constitutional: As Per HPI - EENT Eyes: absent: As Per HPI, Blind Spots, Blurred Vision, Change in Vision, Decreased Night Vision, Diplopia, Discharge, Dry Eye, Exophthalmos, Floaters, Irritation, Itchy Eyes, Loss of Peripheral Vision, Pain, Photophobia, Requires Corrective Lenses, Sees Flashes, Spots in Vision, Tunnel Vision, Other Visual Disturbances, Loss of Vision, Other Ears: absent: As Per HPI, Decreased Hearing, Ear Discharge, Ear Pain, Tinnitus, Abnormal Hearing, Disequilibrium, Dizziness, Other Nose/Mouth/Throat: absent: As Per HPI, Epistaxis, Nasal Congestion, Nasal Disc harge, Nasal Obstruction, Nasal Trauma, Nose Pain, Post Nasal Drip, Sinus Pain, Sinus Pressure, Bleeding Gums, Change in Voice, Dental Pain, Dry Mouth, Dysphagia, Halitosis, Hoarsness, Lip Swelling, Mouth Lesions, Mouth Pain, Odynophagia, Sore Throat, Throat Swelling, Tongue Swelling, Facial Pain, Neck Pain, Neck Mass, Other - Cardiovascular Cardiovascular: absent: As Per HPI, Acrocyanosis, Chest Pain, Chest Pain at Rest, Chest Pain with Activity, Claudication, Diaphoresis, Dyspnea, Dyspnea on Exertion, Edema, Irregular Heart Rhythm, Pain Radiating to Arm/Neck/Jaw, Leg Edema, Leg Ulcers, Lightheadedness, Orthopnea, Palpitations, Paroxysmal Nocturnal Dyspnea, Pedal Edema, Radiating Pain, Rapid Heart Rate, Slow Heart Rate, Syncope, Other - Respiratory Respiratory: absent: As Per HPI, Cough, Dyspnea, Hemoptysis, Dyspnea on Exertion, Wheezing, Snoring, Stridor, Pain on Inspiration, Chest Congestion, Excessive Mucous Production, Change in Mucous Color, Pain with Coughing, Other - Gastrointestinal Gastrointestinal: absent: As Per HPI, Abdominal Pain, Belching, Bloating, Change in Bowel Habits, Change in Stool Character, Coffee Ground Emesis, Constipation, Cramping, Diarrhea, Dyspepsia, Dysphagia, Early Satiety, Excessive Flatus, Fecal Incontinence, Heartburn, Hematemesis, Hematochezia, Loose Stools, Melena, Nausea, Odynophagia, Temesmus, Vomiting, Other - Genitourinary Genitourinary: absent: As Per HPI, Change in Urinary Stream, Difficulty Urinating, Dysuria, Flank Pain, Hematuria, Pyuria, Nocturia, Urinary Incontinence, Urinary Frequency, Urinary Hesitance, Urinary Urgency, Voiding Freq/Small Amts, Freq UTI, Hx Renal/Bladder Calculi, Hx /Renal Surgery, Bladder Distension, Other - Musculoskeletal Musculoskeletal: As Per HPI - Integumentary Integumentary: Swelling - Neurological Neurological: absent: As Per HPI, Abnormal Gait, Abnormal Hearing, Abnormal Movements, Abnormal Speech, Behavioral Changes, Burning Sensations, Confusion, Convulsions, Disequilibrium, Dizziness, Numbness, Focal Weakness, Frequent Falls, Headaches, Lack of Coordination, Loss of Vision, Memory Loss, Paresthesias, Radicular Pain, Restless Legs, Sensory Deficit, Syncope, Tingling, Tremor, Vertigo, Weakness, Other Visual Disturbances, Other - Endocrine Endocrine: absent: As Per HPI, Change in Body Appearance, Change in Libido, Cold Intolorance, Deepening of Voice, Excessive Sweating, Fatigue, Flushing, Heat Intolorance, Increase in Ring/Shoe/Hat Size, Palpitations, Polydipsia, Po lyphagia, Polyuria, Other - Hematologic/Lymphatic Hematologic: As Per HPI Past Patient History - Past Social History Smoking Status: Never Smoked - CARDIAC Hx Cardiac Disorders: Yes Hx Congestive Heart Failure: Yes (Acute CHF) Hx Hypertension: Yes - INTEGUMENTARY Other/Comment: lymphedema - MUSCULOSKELETAL/RHEUMATOLOGICAL Hx Falls: No - GENITOURINARY/GYNECOLOGICAL Hx Reproductive Disorders: No - PSYCHIATRIC Hx Substance Use: No - ANESTHESIA Hx Anesthesia: No Hx Anesthesia Reactions: No Hx Malignant Hyperthermia: No Meds Allergies/Adverse Reactions: Allergies Allergy/AdvReac Type Severity Reaction Status Date / Time No Known Allergies Allergy Verified 05/11/18 10:53 - Medications Medications: Current Medications Acetaminophen (Tylenol 325mg Tab) 650 mg PO Q4 PRN; Protocol PRN Reason: Pain, Mild (1-3) Last Admin: 05/17/18 00:10 Dose: 650 mg Albuterol/Ipratropium (Duoneb 3 Mg/0.5 Mg (3 Ml) Ud) 3 ml IH [id number] NAYELY Last Admin: 05/20/18 07:24 Dose: 3 ml Calcium/Vitamin D (Oscal-D 250 Mg-125 Units Tab) 1 tab PO DAILY [facility]; Protocol Last Admin: 05/19/18 10:19 Dose: 1 tab Docusate Sodium (Colace) 100 mg PO DAILY [facility]; Protocol Last Admin: 05/19/18 10:20 Dose: 100 mg Fentanyl (Duragesic) 1 patch TD Q72H [facility] Last Admin: 05/19/18 10:18 Dose: 1 patch Furosemide (Lasix) 40 mg IVP BID [facility] Last Admin: 05/19/18 17:42 Dose: 40 mg Guaifenesin (Robitussin) 100 mg PO Q4H PRN PRN Reason: Cough Last Admin: 05/18/18 18:29 Dose: 100 mg Ceftriaxone Sodium (Rocephin 1 Gram Ivpb) 1 gm in 100 mls @ 100 mls/hr IVPB 0600 [facility]; Protocol Last Admin: 05/20/18 05:40 Dose: 100 mls/hr Losartan Potassium (Cozaar) 100 mg PO DAILY [facility] Last Admin: 05/19/18 10:20 Dose: Not Given Ondansetron HCl (Zofran Inj) 4 mg IVP Q6H PRN; Protocol PRN Reason: Nausea/Vomiting Oxycodone HCl (Oxycodone Immediate Release Tab) 10 mg PO Q4H PRN; Protocol PRN Reason: Pain, severe (8-10) Last Admin: 05/19/18 19:54 Dose: 10 mg Pantoprazole Sodium (Protonix Ec Tab) 40 mg PO 0600 [facility]; Protocol Last Admin: 05/20/18 05:40 Dose: 40 mg Sennosides (Senokot Tab) 8.6 mg PO BID [facility]; Protocol Tramadol HCl (Ultram) 50 mg PO Q6H PRN; Protocol PRN Reason: Pain, moderate (4-7) Last Admin: 05/16/18 05:30 Dose: 50 mg Physical Exam - Head Exam Head Exam: ATRAUMATIC, NORMAL INSPECTION, NORMOCEPHALIC - Eye Exam Eye Exam: Normal appearance Pupil Exam: NORMAL ACCOMODATION - ENT Exam ENT Exam: Mucous Membranes Moist, Normal Exam - Neck Exam Neck exam: Positive for: Normal Inspection - Respiratory Exam Respiratory Exam: Clear to Auscultation Bilateral, NORMAL BREATHING PATTERN - Cardiovascular Exam Cardiovascular Exam: REGULAR RHYTHM, +S1, +S2 - GI/Abdominal Exam GI & Abdominal Exam: Normal Bowel Sounds - Extremities Exam Extremities exam: Positive for: pedal edema - Back Exam Back exam: NORMAL INSPECTION Results - Vital Signs Recent Vital Signs: Last Vital Signs Temp 98 F 05/19/18 16:00 Pulse 87 05/19/18 16:00 Resp 20 05/19/18 16:00 BP 157/85 H 05/19/18 17:42 Pulse Ox 91 L 05/19/18 16:00 - Labs Result Diagrams: 05/20/18 06:40 05/17/18 06:30 Labs: Laboratory Results - last 24 hr 05/20/18 06:40 WBC 3.1 L D RBC 3.32 L Hgb 10.1 L Hct 31.3 L MCV 94.3 MCH 30.4 MCHC 32.3 RDW 16.0 H Plt Count 253 MPV 9.4 Neut % (Auto) 67.7 Lymph % (Auto) 21.2 L Mccreary % (Auto) 10.5 H Eos % (Auto) 0.3 L Baso % (Auto) 0.3 Lymph # (Auto) 0.7 L Mccreary # (Auto) 0.3 Eos # (Auto) 0.0 Baso # (Auto) 0.01 Absolute Neuts (auto) 2.07 Assessment & Plan - Assessment and Plan (Free Text) Assessment: 1. Multiple myeloma : port placement upon discharge on Saturday. CT- PET will be scheduled next week. Chemo planned, VCD regimen. Discussed with and pt. at length. answered all their questions. 2. Pain not controlled. he refused to take narcotics. after discussion today he agreed for medications. fentanyl patch, oxy increased to 10 mg Q 8 hrs. 3. DVT prophylaxis- heparin [address] Garcia for allowing us to participATE IN HIS CARE. - Date & Time Date: 05/19/18 Time: 09:00
[2018-05-20] MEDS: oxyCODONE 5 mg Immediate Release Tab PO PRN ×2 (08:32→19:42)
[2018-05-20] MEDS: Calcium-Vit D 250 mg-125 Units Tab UD PO SCH (08:59)
--- NOTE | 2018-05-20 09:42 | PN ---
DATE: 05/20/2018 SUBJECTIVE: He is comfortable in bed, in no acute distress. Pain is better and controlled. He is currently on fentanyl 25 mcg and oxycodone increased to 10 mg p.r.n. for breakthrough pain. REVIEW OF SYSTEMS: As per HPI. Rest of 12-point review of systems reviewed and negative. PHYSICAL EXAMINATION: GENERAL: Comfortable in bed, in no acute distress. VITAL SIGNS: Temperature 98, heart rate 87, blood pressure 157/85, respiratory rate 18 per minute and oxygen saturation 91% on oxygen by nasal cannula. HEENT: Pallor positive. NECK: No lymphadenopathy. CHEST: Air entry present and equal bilaterally. No added sound. CARDIOVASCULAR: S1 and S2 normal. No murmur. No gallop. ABDOMEN: Soft and nontender. No hepatosplenomegaly. EXTREMITIES: Bilateral lymphedema. CENTRAL NERVOUS SYSTEM: Alert and oriented x3. No focal sensory or motor deficit. LABORATORY DATA: On 05/20/2017, White count 3.1, hemoglobin 10.1, hematocrit 31.3, and platelet 253. Sodium 137 and potassium 3.6. Creatinine 0.8. ASSESSMENT: 1. Multiple myeloma. 2. Lymphedema. 3. Anemia. 4. Leukopenia. PLAN: He is being prepared for initiation of chemotherapy for multiple myeloma, VCD regimen; Velcade, Cytoxan and dexamethasone. He will be evaluated for autotransplantation. I had a lengthy discussion with the boyfriend of the patient yesterday, answered all the questions to their satisfaction. Pain management with fentanyl and oxycodone. CT PET scan will be scheduled on next week. Port place scheduled this week. Blood counts improved. White count is 3.1 and hemoglobin improved to 10.1. DVT prophylaxis with Lovenox [address] Garcia for allowing us to participate in Mr. Sears's care. Corinne Godinez MD
[2018-05-20] MEDS ORDERED: Enoxaparin 40 mg Syringe SC SCH (10:00)
[2018-05-20] MEDS: POLYETHYLENE GLYCOL 3350 17 GM/Dose PACKET PO SCH ×2 (10:58→17:48)
--- NOTE | 2018-05-20 13:24 | PN ---
DATE: 05/20/2018 SUBJECTIVE: A 67-year-old white male admitted to the hospital with advanced multiple myeloma with multiple lytic lesions. The patient is in TCU. He is in physical therapy fentanyl and p.o. Percocet. He is also complaining of constipation, he is on MiraLax. He has been afebrile for the last 48 hours. He is on IV antibiotic for a productive cough. His white count is improved from 2.1 to 3.1 and he is afebrile. Vital signs are stable. Kavon Garcia MD
[2018-05-20 16:23] VITALS: RESP 18
[2018-05-20 21:52] LABS: URINE APPEARANCE CLEAR (CLEAR); URINE BILIRUBIN NEGATIVE (NEGATIVE); URINE BLOOD TRACE-INTACT (NEGATIVE); URINE COLOR YELLOW (YELLOW); URINE GLUCOSE (UA) NEGATIVE (NEGATIVE); URINE LEUKOCYTE ESTERASE NEGATIVE Leu/uL (NEGATIVE); URINE PROTEIN 30 mg/dL (<30 mg/dL); URINE UROBILINOGEN 0.2 E.U./dL (<1 E.U./dL)
[2018-05-21] MEDS ORDERED: Albuterol-Ipratrop 3 mg / 0.5 (3 ml) UD IH STA (00:01)
[2018-05-21] MEDS: Pantoprazole 40 mg EC Tab PO SCH (05:53)
[2018-05-21] MEDS: cefTRIAXone 1 gm 1 GM/100 ML BAG IVPB SCH (05:53)
[2018-05-21] MEDS: Albuterol-Ipratrop 3 mg / 0.5 (3 ml) UD IH SCH ×2 (07:19→13:11)
[2018-05-21] MEDS ORDERED: Magnesium Citrate Oral SOL (300 ml) PO ONE ×2 (08:47→13:23)
[2018-05-21 09:33] LABS: BASO # 0.02 K/mm3 (0.0-2.0); BASO % 0.5 % (0.0-3.0); EOS % 0.5 % (1.5-5.0); HEMOGLOBIN 10.4 g/dL (14.0-18.0); LYMPH # 0.7 (1.2-3.4); LYMPH % 17.9 % (22.0-35.0); MEAN CELL VOLUME 93.6 fl (80.0-105.0); MEAN CORPUSCULAR HEMOGLOBIN 30.3 pg (25.0-35.0); MEAN CORPUSCULAR HGB CONC 32.4 g/dl (31.0-37.0); MONO # 0.5 (0.1-0.6); RBC 3.43 10^6/uL (3.5-6.1); RED CELL DISTRIBUTION WIDTH 15.8 % (11.5-14.5); WHITE BLOOD COUNT 4.1 10^3/uL (4.5-11.0)
[2018-05-21] MEDS: Calcium-Vit D 250 mg-125 Units Tab UD PO SCH (09:52)
[2018-05-21] MEDS: POLYETHYLENE GLYCOL 3350 17 GM/Dose PACKET PO SCH (09:58)
[2018-05-21 10:02] VITALS: BP 127/69
--- NOTE | 2018-05-21 13:32 | PN ---
DATE: 05/21/2018 SUBJECTIVE: A 67-year-old white male with a long history of chronic lymphedema with massive swelling of both lower extremities, admitted to the hospital with lytic lesions of the chest and rib cage consistent with multiple myeloma. Bone marrow biopsy shows advanced multiple myeloma with greater than 70% plasma cells present. The patient has had severe episodes of chest pain with any movement, difficulty in standing, difficulty in walking, severe pain in the chest with any exertion, shortness of breath; and the patient had a severe episode of shortness of breath last night, needed a respiratory treatment and increased oxygen use. He has difficulty, he has a house with multiple stairs. He also will need to make frequent visits for chemotherapy. He has difficulty enabling because of the severe massive lymphedema in both lower extremities and also with severe pain on any movement and even on standing because of the lytic lesions of his chest, sternum and ribs. The patient has been having difficulty in the hospital getting in and out of the bathroom, in and out of the bed, in and out of the chair. He has difficulty in bathing and dressing. The patient has used his pcnszy-ut-tla's wheelchair in the past before she and he has knowledge of safely using the wheelchair. He also has his son and who are able to help him with use of the wheelchair in a safe manner. PHYSICAL EXAMINATION: GENERAL: Shows a well-developed, but obese white male with massive swelling of the lower extremities and feet consistent with lymphedema. CHEST: Clear to auscultation and percussion on examination. HEART: Regular sinus rhythm. ABDOMEN: Obese, but benign. There is tenderness on palpation of the chest wall and sternum. ASSESSMENT AND PLAN: The patient is currently using 5 liters of oxygen. He is on nebulizer treatments. He will also be treated with medication to overcome opioid constipation. He will be given a dose of magnesium today. He is on Senokot. He is on Colace. He is on MiraLax. His vital signs are stable. He is afebrile. His blood pressure is 121/73. The patient will have a chest x-ray, repeat BNP, repeat CBC today and increased dose of magnesium. Kavon Garcia MD [facility] # [id number]
--- NOTE | 2018-05-21 14:29 | RAD ---
Date of service: 05/21/2018 HISTORY: SOB COMPARISON: 05/15/2018. FINDINGS: LUNGS: The lungs are well inflated. There interval development of consolidation in the right lower lobe. There is subsegmental atelectasis in the left lower lobe. PLEURA: No pleural effusions or pneumothorax. CARDIOVASCULAR: The heart is normal in size. There are aortic atherosclerotic calcifications present. OSSEOUS STRUCTURES: Within normal limits for the patient's age. VISUALIZED UPPER ABDOMEN: Normal. OTHER FINDINGS: None. IMPRESSION: Interval development of right lower lobe consolidation most compatible with lobar pneumonia. Follow-up after medical management is recommended to ensure complete resolution.
[2018-05-21 17:00] VITALS: PULSE 86; O2SAT 88
== END 2018-05-21 16:17 | disposition short-term general hospital (02) | DRG 555 ==
LOC: TRCU 14:26
PROVIDERS: ADMIT Internal Medicine; ATTEND Internal Medicine
PROC: 3E03329 Introduction of Other Anti-infective into Peripheral Vein, Percutaneous Approach (ICD-10-PCS; 2018-05-15)
PROC: F07Z9FZ Gait Training/Functional Ambulation Treatment using Assistive, Adaptive, Supportive or Protective Equipment (ICD-10-PCS; principal; 2018-05-18)
PROC: F07Z8ZZ Transfer Training Treatment (ICD-10-PCS; 2018-05-18)
PROC: F07L6ZZ Therapeutic Exercise Treatment of Musculoskeletal System - Lower Back / Lower Extremity (ICD-10-PCS; 2018-05-18)
PROC: F08Z1ZZ Dressing Techniques Treatment (ICD-10-PCS; 2018-05-18)
PROC: F08Z2FZ Grooming/Personal Hygiene Treatment using Assistive, Adaptive, Supportive or Protective Equipment (ICD-10-PCS; 2018-05-19)
DX: R26.2 Difficulty in walking, not elsewhere classified (principal); I50.33 Acute on chronic diastolic (congestive) heart failure; C90.00 Multiple myeloma not having achieved remission; Z68.42 Body mass index [BMI] 45.0-49.9, adult; E66.9 Obesity, unspecified; I11.0 Hypertensive heart disease with heart failure; D64.9 Anemia, unspecified; E83.52 Hypercalcemia; K59.03 Drug induced constipation; T40.2X5A Adverse effect of other opioids, initial encounter; I89.0 Lymphedema, not elsewhere classified; I35.0 Nonrheumatic aortic (valve) stenosis; D72.819 Decreased white blood cell count, unspecified; R07.9 Chest pain, unspecified

== ENCOUNTER 2018-05-21 16:17 | Inpatient (IN) | payer MEDICARE, BC ==
[2018-05-21 16:17] VITALS: BMI 46.2
[2018-05-21 18:24] LABS: ALB/GLOB RATIO 0.7 (1.1-1.8); ALBUMIN 4.1 g/dL (3.0-4.8); ALT/SGPT 17 U/L (7-56); AST/SGOT 51 U/L (17-59); BLOOD UREA NITROGEN 20 mg/dL (7-21); CALCIUM 8.1 mg/dL (8.4-10.5); GFR NON-AFRICAN AMERICAN > 60
[2018-05-21 18:28] LABS: TROPONIN I < 0.01 ng/mL
--- NOTE | 2018-05-21 18:49 | ED PDOC ---
Arrival/HPI - General Chief Complaint: Shortness Of Breath Historian: Patient - History of Present Illness Narrative History of Present Illness (Text): 05/21/18 17:15 67 year old male, whose past medical history includes hypertension, chronic lymphedema, valvular heart disease, and multiple myelomas, who presents to the Emergency department from TCU after having 1 episode of shortness of breath last night at 24:00 while at TCU. He denies any acute or new chest pain at the time. No hemoptysis or productive sputum. Patient reports he sits in his wheelchair while sleeping, and last night he woke up at midnight feeling shortness of breath. Patient states his O2 was at 2 and was then increased to 5, with relief. Patient notes chest pain that is associated with his newly diagnosed multiple myelomas, and he states it feels like a shooting pain across his chest when he stands. He states this pain has not changed in character since admission and pain is controlled currently. Patient reports he is scheduled to start Chemo on 06/06/2018 and was told he will be getting a port placed soon. Patient notes he is breathing fine currently while sitting in wheel chair on O2. Family at bedside notes patient has been getting Lasix 2 times a day. Patient notes decreased appetite, stating he barely eats. Patient notes he has not had a bowel movement in the past 10 days. Patient does not have any other complaints at this time. PMD: Dr. Garcia 05/22/18 07:41 Time/Duration: Other (Patient notes 1 episode of shortness of breath at 24:00 last night ) Symptom Onset: Sudden Symptom Course: Improving Activities at Onset: Rest Past Medical History - Provider Review Nursing Documentation Reviewed: Yes - Cardiac Hx Pacemaker: No - Neurological Hx Paralysis: No - Hematological/Oncological Other/Comment: Multiple myloma - Integumentary Other/Comment: lymphedema - Musculoskeletal/Rheumatological Hx Musculoskeletal Disorders: Yes - Genitourinary/Gynecological Hx Reproductive Disorders: No - Psychiatric Hx Emotional Abuse: No Hx Physical Abuse: No Hx Substance Use: No - Anesthesia Hx Anesthesia Reactions: No Hx Malignant Hyperthermia: No - Suicidal Assessment Feels Threatened In Home Enviroment: No Family/Social History - Physician Review Nursing Documentation Reviewed: Yes Family/Social History: No Known Family HX Smoking Status: Never Smoked Hx Alcohol Use: No Hx Substance Use: No Allergies/Home Meds Allergies/Adverse Reactions: Allergies No Known Allergies Allergy (Verified 05/11/18 10:53) Home Medications: Home Meds Medication Instructions Recorded Confirmed Acetaminophen [Tylenol 325mg tab] 325 mg PO Q4H PRN 05/21/18 05/22/18 Albuterol/Ipratropium [Duoneb 3 3 ml IH Q6H 05/21/18 05/22/18 MG/3 Ml-0.5 MG/3 Ml 3 Ml] Calcium Carbonate/Vitamin D 1 tab PO DAILY 05/21/18 05/22/18 [Oyster Shell Calcium/Vitamin D 250 MG-125 Iu] Docusate [Colace] 100 mg PO DAILY 05/21/18 05/22/18 Furosemide [Lasix] 40 mg IV BID 05/21/18 05/22/18 Losartan [Cozaar] 100 mg PO DAILY 05/21/18 05/21/18 Pantoprazole [Protonix] 40 mg PO DAILY 05/21/18 05/22/18 Polyethylene Glycol 3350 [Miralax] 17 gm PO BID 05/21/18 05/22/18 Sennosides [Senokot] 8.6 mg PO BID 05/21/18 05/22/18 cefTRIAXone 1 gm [Rocephin 1 gram 1 gm IVPB 0600 05/21/18 05/21/18 IVPB] guaiFENesin [Robitussin] 100 mg PO Q4H PRN 05/21/18 05/21/18 oxyCODONE [oxyCODONE Immediate 10 mg PO Q4H PRN 05/21/18 05/22/18 Release Tab] traMADol [Ultram] 50 mg PO Q6H PRN 05/21/18 05/22/18 Review of Systems - Review of Systems Constitutional: Fatigue. absent: Weight Change Eyes: absent: Vision Changes ENT: absent: Hearing Changes Respiratory: SOB. absent: Cough, Sputum, Wheezing Cardiovascular: Chest Pain, Edema, NOBLE. absent: Palpitations, Calf Pain, Orthopnea Gastrointestinal: Constipation. absent: Abdominal Pain, Nausea, Vomiting Genitourinary Male: absent: Dysuria Musculoskeletal: Myalgias Skin: absent: Rash, Cellulitis Neurological: absent: Headache, Dizziness Endocrine: absent: Polyuria Hemo/Lymphatic: absent: Easy Bleeding Psychiatric: absent: Depression Physical Exam - Physical Exam Narrative Physical Exam (Text): Head: Atraumatic. Normocephalic. Eyes: PERRL. EOMI. Conjunctivae are not pale. ENT: Mucous membranes are dry and intact. Oropharynx is clear and symmetric. Neck: Supple. Full ROM. No JVD. No meningeal signs. Nontender. Cardiovascular: Regular rate. Regular rhythm. Systolic murmur, Pulmonary/Chest: No evidence of respiratory distress. Diminished breath sounds at the bases. No rhonchi noted. No accessory muscle usage. Diffuse chest wall tenderness on palpation. Abdominal: Soft , distended.. There is no tenderness. No rebound, guarding, or rigidity. No peritoneal signs. Back: Mild idffuse tenderness. Extremities: Bilateral severe lymphedema with no pus or bleeding or drainage. Skin: No cellulitis. Neurological: Alert, awake, and oriented to person, place, time, and situation. Normal speech. Motor and sensory exam intact. Psychiatric: Good eye contact. Normal interaction, affect, and behavior. Vital Signs Reviewed: Yes Vital Signs Temp Pulse Resp BP Pulse Ox 05/21/18 17:35 78 18 121/69 94 L 05/21/18 16:28 98.2 F 83 18 123/74 93 L Temperature: Afebrile Blood Pressure: Normal Pulse: Regular Respiratory Rate: Normal Appearance: Positive for: Well-Appearing, Non-Toxic Pain Distress: None Mental Status: Positive for: Alert and Oriented X 3 Medical Decision Making ED Course and Treatment: 05/21/18 17:15 Impression: 67 year old male who presents to the Emergency department from [facility] after having 1 episode of shortness of breath last night at 24:00. Patient reportedly was noted to be hypoxic this morning at TCU. He currently states he is comfortable on nasal cannula. Differential Diagnosis included but are not limited to: pleural effusion, pneumonia, CHF Plan: -- EKG -- Labs -- O2 via Nasal Cannula -- Reassess and disposition, communicate with PMD and consultants Prior Visits: Notes and results from previous visits were reviewed. Patient was last seen in the emergency department on 05/14/18 with complaints of sternal chest discomfort, shortness of breath, and weakness. Patient was hospitalized. Progress Notes: Patient denies shortness of breath while on nasal cannula. He denies new chest pain. Denies fever or hemoptysis. CXR obtained prior to arrival at TCU reviewed, ? new infiltrate vs. effusion. Patient with lymphedema but no acute change. Denies pleuritic discomfort. No fever. I reviewed CBC obtained this morning in TCU was unremarkable. IV antibitoics initiated as patient has been hospitalized for several days and has possible new infiltrate. HE HAS ALREADY BEEN ON CEFTRIAXONE. He will be initiated on Zosyn as he has developed infiltrate while in hospital. I discussed case with Dr. Garcia's service as well as Dr. Henderson covering for Dr. Godinez. Patient on re-exam is resting comfortably. Prior ct angio from recent admission reviewed, he denies any change in pain or shortness of breath currently. - Lab Interpretations Lab Results: Troponin I < 0.01 ng/mL 05/21/18 17:59 Total Bilirubin 0.5 mg/dL (0.2-1.3) 05/21/18 17:59 AST 51 U/L (17-59) 05/21/18 17:59 ALT 17 U/L (7-56) 05/21/18 17:59 Alkaline Phosphatase 90 U/L (38-126) 05/21/18 17:59 Total Protein 9.8 g/dL (5.8-8.3) H 05/21/18 17:59 Albumin 4.1 g/dL (3.0-4.8) 05/21/18 17:59 Globulin 5.7 gm/dL 05/21/18 17:59 Albumin/Globulin Ratio 0.7 (1.1-1.8) L 05/21/18 17:59 - Scribe Statement The provider has reviewed the documentation as recorded by the John Santos All medical record entries made by the John were at my direction and personally dictated by me. I have reviewed the chart and agree that the record accurately reflects my personal performance of the history, physical exam, medical decision making, and the department course for this patient. I have also personally directed, reviewed, and agree with the discharge instructions and disposition. Disposition/Present on Arrival - Present on Arrival Any Indicators Present on Arrival: No History of DVT/PE: No History of Uncontrolled Diabetes: No Urinary Catheter: No History of Decub. Ulcer: No History Surgical Site Infection Following: None - Disposition Have Diagnosis and Disposition been Completed?: Yes Diagnosis: Chest pain, Pneumonia, Hypoxia Disposition: HOSPITALIZED Disposition Time: :00 Patient Plan: Admission, Telemetry Patient Problems: Current Active Problems Problem Status Onset Chest pain Acute Hypoxia Acute Pneumonia Acute Condition: SERIOUS
[2018-05-21] MEDS ORDERED: cefTRIAXone 1 gm 1 GM/100 ML BAG IVPB STA (19:01)
[2018-05-21] MEDS ORDERED: Albuterol-Ipratrop 3 mg / 0.5 (3 ml) UD IH STA (19:02)
[2018-05-21] MEDS ORDERED: Azithromycin 500MG/NS 250ml 500 MG/250 ML BAG IVPB STA (19:05)
[2018-05-21] MEDS ORDERED: Potassium Chloride 20 mEq ER Tab PO STA (19:07)
[2018-05-21] MEDS ORDERED: Piperacill/Tazo 4.5gm in NS 4.5 GM/100 ML BAG IVPB STA (19:19)
[2018-05-21 21:05] LABS: ARTERIAL BLOOD GAS HCO3 28.2 mmol/L (21-28); ARTERIAL BLOOD GAS O2 SAT 97.9 % (95-98); ARTERIAL BLOOD GAS PCO2 33 mm/Hg (35-45); ARTERIAL BLOOD GAS PH 7.54 (7.35-7.45); ARTERIAL BLOOD GAS TCO2 29.2 mmol.L (22-28)
[2018-05-22] MEDS ORDERED: oxyCODONE 5 mg Immediate Release Tab PO ONE (03:50)
[2018-05-22] MEDS ORDERED: oxyCODONE 10 mg Immediate Release Tab PO ONE (03:55)
--- NOTE | 2018-05-22 08:12 | CARD ---
APPROVED REPORT Date of service: 05/21/2018 EKG Measurement Heart [id number] <Conclusion> Normal sinus rhythm Normal ECG
[2018-05-22] MEDS: Cefepime 1gm in NS 100ml 1 GM/100 ML BAG IVPB SCH ×3 (09:23→22:31)
[2018-05-22] MEDS: POLYETHYLENE GLYCOL 3350 17 GM/Dose PACKET PO SCH (09:23)
[2018-05-22] MEDS: Vancomycin 1.5 GM in Sodium Chloride 0.9% 500 ML IVPB SCH ×2 (09:24→19:02)
--- NOTE | 2018-05-22 11:00 | CP.PCM.APN ---
Subjective - Date & Time of Evaluation Date of Evaluation: 05/22/18 Time of Evaluation: 09:30 - Subjective Subjective: pt seen and examined at bedside, pt offers no complaints at this time, states he feels a little better Review of Systems - Review of Systems All systems: reviewed and no additional remarkable complaints except Objective - Vital Signs/Intake and Output Vital Signs (last 24 hours): Temp Pulse Resp BP Pulse Ox 97.8 F 78 20 118/77 96 05/22/18 06:00 05/22/18 06:00 05/22/18 06:00 05/22/18 06:00 05/22/18 06:00 Intake and Output: 05/22/18 05/22/18 06:59 18:59 Intake Total 300 Balance 300 - Medications Medications: Current Medications Albuterol/Ipratropium (Duoneb 3 Mg/0.5 Mg (3 Ml) Ud) 3 ml IH [id number] NAYELY Docusate Sodium (Colace) 100 mg PO BID NAYELY Last Admin: 05/22/18 09:22 Dose: 100 mg Vancomycin HCl 1.5 gm/ Sodium (Chloride) 500 mls @ 167 mls/hr IVPB Q12H NAYELY; Protocol Last Admin: 05/22/18 09:24 Dose: 167 mls/hr Cefepime HCl (Maxipime 1gm) 1 gm in 100 mls @ 100 mls/hr IVPB Q8 NAYELY; Protocol Last Admin: 05/22/18 09:23 Dose: 100 mls/hr Polyethylene Glycol (Miralax) 17 gm PO DAILY NAYELY Last Admin: 05/22/18 09:23 Dose: 17 gm - Labs Labs: 05/21/18 17:59 - Constitutional Appears: Non-toxic - Head Exam Head Exam: NORMOCEPHALIC - Eye Exam Eye Exam: Normal appearance - ENT Exam ENT Exam: Normal Exam - Respiratory Exam Respiratory Exam: Decreased Breath Sounds - Cardiovascular Exam Cardiovascular Exam: +S1, +S2 - GI/Abdominal Exam GI & Abdominal Exam: Soft, Normal Bowel Sounds - Neurological Exam Neurological Exam: Alert, Awake - Skin Skin Exam: Dry, Intact Assessment and Plan - Assessment and Plan (Free Text) Plan: 67 yr old white male with pmh sig for htn, CLL, multiple myeloma , valvular heart disease admitted from TCu with SOB last night. pt is now admitted for further eval and treatment to r/o pNE as well as port placement for initiation of chemo for Multiple myeloma. Pt has consultation with ID with workup in progress on IV antibiotics pending pancultures. will continue to follow Tatiana Villanueva BPCI/TIC - BPCIA/TIC Educated pt/family on BPCIA/CIR/Med to Bed Programs: N/A Flyers given, including [facility] Beneficiary letter: N/A Pt/family verbalized understanding & agreed to program: N/A (pt for initiaition of chemo)
--- NOTE | 2018-05-22 13:17 | CP.PCM.CON ---
History of Present Illness - History of Present Illness History of Present Illness: 67 year old male with PMH of HTN, chronic lymphedema, multiple, myeloma, valvular heart disease, morbid obesity with BMI 47 was in TCU for several days, doing well. He then developed shortness of breath, dry cough, and some chest discomfort in bed and on evaluation, he was brought to the ED and was then subsequently admitted to acute care portion of the hospital. CXR done is showing consolidation on the right lower lobe. He denies fever or chills, no nausea or vomiting, no headache or dizziness, no chest pain currently, no sore throat, no rhinorrhea, no dysphagia, no abdominal pain, no diarrhea, no dysuria. His cough has also improved since he was started on antibiotics last night. Infectious diseases consult is requested to further evaluate and manage. Review of Systems - Review of Systems All systems: reviewed and no additional remarkable complaints except (as per HPI) Past Patient History - Past Social History Smoking Status: Never Smoked - CARDIAC Hx Cardiac Disorders: (chest pain) Hx Congestive Heart Failure: Yes Hx Hypertension: Yes Hx Pacemaker: No - PULMONARY Hx Pneumonia: Yes - NEUROLOGICAL Hx Neurological Disorder: No - HEENT Hx HEENT Problems: No - RENAL Hx Chronic Kidney Disease: No - ENDOCRINE/METABOLIC Hx Endocrine Disorders: No - HEMATOLOGICAL/ONCOLOGICAL Hx Blood Disorders: No (lymphedema) Hx Cancer: Yes (multiple myeloma) - INTEGUMENTARY Hx Dermatological Problems: No - MUSCULOSKELETAL/RHEUMATOLOGICAL Hx Musculoskeletal Disorders: No Hx Falls: No - GASTROINTESTINAL Hx Gastrointestinal Disorders: No - GENITOURINARY/GYNECOLOGICAL Hx Genitourinary Disorders: No - PSYCHIATRIC Hx Emotional Abuse: No Hx Physical Abuse: No Hx Substance Use: No - SURGICAL HISTORY Hx Surgeries: No (denies) - ANESTHESIA Hx Anesthesia Reactions: No Hx Malignant Hyperthermia: No Meds Allergies/Adverse Reactions: Allergies Allergy/AdvReac Type Severity Reaction Status Date / Time No Known Allergies Allergy Verified 05/11/18 10:53 Physical Exam - Constitutional Appears: Chronically Ill - Head Exam Head Exam: NORMAL INSPECTION - Neck Exam Neck exam: Negative for: Meningismus - Respiratory Exam Respiratory Exam: Decreased Breath Sounds, Rales (crackles at the bases) - Cardiovascular Exam Cardiovascular Exam: +S1, +S2 - GI/Abdominal Exam GI & Abdominal Exam: Soft. absent: Tenderness Results - Vital Signs Recent Vital Signs: Last Vital Signs Temp 97.8 F 05/22/18 06:00 Pulse 78 05/22/18 06:00 Resp 20 05/22/18 06:00 BP 118/77 05/22/18 06:00 Pulse Ox 96 05/22/18 06:00 - Labs Result Diagrams: 05/21/18 17:59 Labs: Laboratory Results - last 24 hr 05/21/18 05/21/18 05/21/18 17:59 19:30 21:02 pCO2 33 L pO2 74.0 L HCO3 28.2 H ABG pH 7.54 H ABG Total CO2 29.2 H ABG O2 Saturation 97.9 ABG Base Excess 5.8 H ABG Potassium 2.8 L Glucose 120 H Lactate 0.9 FiO2 35.0 Sodium 138 142.0 Potassium 3.3 L Chloride 95 L 106.0 Carbon Dioxide 32 Anion Gap 15 BUN 20 Creatinine 0.9 Est GFR ( Amer) > 60 Est GFR (Non-Af Amer) > 60 Random Glucose 123 H Calcium 8.1 L Total Bilirubin 0.5 AST 51 ALT 17 Alkaline Phosphatase 90 Lactate Dehydrogenase 529 Total Creatine Kinase 64 Troponin I < 0.01 Total Protein 9.8 H Albumin 4.1 Globulin 5.7 Albumin/Globulin Ratio 0.7 L Arterial Blood Potassium 2.8 L Influenza Typ A,B (EIA) Negative for flu a/b Assessment & Plan - Assessment and Plan (Free Text) Plan: Assessment right lower lobe hospital-acquired pneumonia HTN chronic lymphedema multiple myeloma valvular heart disease morbid obesity with BMI 47 Plan Started Vancomycin and Cefepime pending blood, sputum cx, PCT; reviewed CXR will monitor clinically
[2018-05-22] MEDS: Albuterol-Ipratrop 3 mg / 0.5 (3 ml) UD IH SCH ×2 (13:44→19:03)
[2018-05-22] MEDS ORDERED: oxyCODONE 10 mg Immediate Release Tab PO PRN (17:03)
--- NOTE | 2018-05-22 17:05 | CP.PCM.PCO ---
Physician Communication Note - Physician Communication Note Physician Communication Note: valtrex 500 mg PO QD for Shingles prophylaxis started.
[2018-05-22] MEDS: Calcium-Vit D 250 mg-125 Units Tab UD PO SCH (17:23)
--- NOTE | 2018-05-22 17:52 | HP ---
DATE OF EXAM: 05/22/2018 HISTORY OF PRESENT ILLNESS: A 67-year-old white male was admitted to the ER from TCU. The patient has history of multiple myeloma, also having right lower lobe pneumonia. The patient began desaturating while in TCU. Oxygen saturation on 5 liters down to 88%. The patient was found on chest x-ray to have right lower lobe infiltrate with atelectasis bilaterally. The patient was transferred to the ER and admitted for pneumonia and hypoxemia and a recent history of multiple myeloma. The patient has been in TCU for approximately 5 days. He was transferred from [facility]. He has recently been diagnosed with a bone marrow biopsy and electrophoresis with multiple myeloma, stage III. The patient does have lytic chest lesions. He has shortness of breath and difficulty in walking because of the chest lesions. REVIEW OF SYSTEMS: Positive for weakness, shortness of breath, cough, and chest pain. Cardiac is negative for palpitations, diaphoresis, dizziness. Neuro is negative for syncope, headache, loss of strength or sensation of upper and lower extremities. is negative for dysuria or hematuria. GI is negative for nausea, vomiting, or diarrhea. PHYSICAL EXAMINATION GENERAL: A well-developed, but obese white male with history of chronic lymphedema, recent history of multiple myeloma, right lower lobe pneumonia, hypoxia, has lytic chest lesions. CHEST: Shows decreased breath sounds at the right base with some rales. ABDOMEN: Obese, but benign. EXTREMITIES: Show chronic lymphedema. HEART: Regular sinus rhythm. NEUROLOGIC: Grossly intact. IMPRESSION: A 67-year-old white male with chronic lymphedema, multiple myeloma and pneumonia and hypoxia. Kavon Garcia MD
[2018-05-23] MEDS: Albuterol-Ipratrop 3 mg / 0.5 (3 ml) UD IH SCH ×4 (01:45→19:31)
[2018-05-23] MEDS: Cefepime 1gm in NS 100ml 1 GM/100 ML BAG IVPB SCH ×3 (05:34→23:41)
[2018-05-23] MEDS: Vancomycin 1.5 GM in Sodium Chloride 0.9% 500 ML IVPB SCH ×2 (06:43→20:12)
[2018-05-23 07:35] LABS: HEMOGLOBIN 9.8 g/dL (14.0-18.0); MEAN CELL VOLUME 94.1 fl (80.0-105.0); MEAN CORPUSCULAR HEMOGLOBIN 30.3 pg (25.0-35.0); MEAN CORPUSCULAR HGB CONC 32.2 g/dl (31.0-37.0); MEAN PLATELET VOLUME 9.2 fl (7.0-11.0); RBC 3.23 10^6/uL (3.5-6.1); WHITE BLOOD COUNT 5.4 10^3/uL (4.5-11.0)
[2018-05-23 08:10] LABS: ALBUMIN 3.9 g/dL (3.0-4.8); BLOOD UREA NITROGEN 20 mg/dL (7-21); CALCIUM 8.2 mg/dL (8.4-10.5); GFR NON-AFRICAN AMERICAN > 60
[2018-05-23 08:11] LABS: ALB/GLOB RATIO 0.7 (1.1-1.8); ALT/SGPT 14 U/L (7-56); AST/SGOT 54 U/L (17-59)
--- NOTE | 2018-05-23 09:58 | PN ---
DATE: 05/23/2018 SUBJECTIVE: A 67-year-old white male with multiple myeloma. Vital signs are stable. Chest clear to auscultation and percussion. The patient is status post pneumonia. He desaturates down to 87% on room air. He is on 5 liters today. His white count is up from 2.1 to 5.4. His hemoglobin is stable at 9.8. His platelet count is 231,000. He is getting a port today for chemotherapy. He is continuing IV antibiotics for his pneumonia. We will decrease his Lasix to once a day and continue on his present course of therapy. Kavon Garcia MD
[2018-05-23] MEDS: Calcium-Vit D 250 mg-125 Units Tab UD PO SCH (10:25)
[2018-05-23] MEDS ORDERED: Lidocaine 2% Inj (20ml) ONE (13:03)
[2018-05-23] MEDS ORDERED: Midazolam 2 MG/2 ML VIAL ONE ×2 (14:18→14:25)
--- NOTE | 2018-05-23 14:43 | CP.PCM.PN ---
Subjective - Date & Time of Evaluation Date of Evaluation: 05/23/18 Time of Evaluation: 12:00 - Subjective Subjective: Comfortable in bed, no fevers. Objective - Vital Signs/Intake and Output Vital Signs (last 24 hours): Temp Pulse Resp BP Pulse Ox 97.6 F 72 20 124/84 96 05/22/18 12:00 05/22/18 12:00 05/22/18 12:00 05/22/18 12:00 05/22/18 06:00 Intake and Output: 05/22/18 05/22/18 06:59 18:59 Intake Total 300 Balance 300 - Medications Medications: Current Medications Albuterol/Ipratropium (Duoneb 3 Mg/0.5 Mg (3 Ml) Ud) 3 ml IH [id number] [facility] Docusate Sodium (Colace) 100 mg PO BID [facility] Last Admin: 05/22/18 09:22 Dose: 100 mg Vancomycin HCl 1.5 gm/ Sodium (Chloride) 500 mls @ 167 mls/hr IVPB Q12H [facility]; Protocol Last Admin: 05/22/18 09:24 Dose: 167 mls/hr Cefepime HCl (Maxipime 1gm) 1 gm in 100 mls @ 100 mls/hr IVPB Q8 [facility]; Protocol Last Admin: 05/22/18 09:23 Dose: 100 mls/hr Polyethylene Glycol (Miralax) 17 gm PO DAILY [facility] Last Admin: 05/22/18 09:23 Dose: 17 gm - Labs Labs: 05/21/18 17:59 - Constitutional Appears: Non-toxic, Chronically Ill - Head Exam Head Exam: NORMAL INSPECTION - Respiratory Exam Respiratory Exam: Decreased Breath Sounds - Cardiovascular Exam Cardiovascular Exam: +S1, +S2 - GI/Abdominal Exam GI & Abdominal Exam: Soft. absent: Tenderness Assessment and Plan - Assessment and Plan (Free Text) Plan: Assessment right lower lobe hospital-acquired pneumonia HTN chronic lymphedema multiple myeloma valvular heart disease morbid obesity with BMI 47 Plan continue Vancomycin and Cefepime day 2 - cultures are negative so far; PCT is <0.05 - if cultures continue to be negative, will de-escalate antibiotics to PO; reviewed CXR will continue to monitor clinically
[2018-05-23] MEDS ORDERED: Sodium Chloride 0.45% 1,000 ML IV SCH (15:15)
[2018-05-23] MEDS: POLYETHYLENE GLYCOL 3350 17 GM/Dose PACKET PO SCH (17:15)
--- NOTE | 2018-05-23 19:26 | VASCULAR ---
PROCEDURE: Ultrasound and fluoroscopic right internal jugular venous access port. CLINICAL HISTORY: Multiple myeloma.Venous port for chemotherapy. PHYSICIAN(S): Everton Win M.D. TECHNIQUE: The relative risks and indications of the procedure were explained to the patient and consent obtained. The patient was placed supine on the arteriogram table and the right neck and chest prepped and draped in the usual sterile fashion. Conscious sedation monitoring was provided throughout the procedure by a nurse. Antibiotics were given prior to the procedure. Under direct ultrasound guidance, the right internal jugular vein was punctured with a micro-puncture set. A 0.035 angled Glidewire was advanced into the IVC. A 4 cm incision was made at the venous access site and the pocket blunted dissected. A 8 Mauritian single-lumen catheter, 23 cm long, was advanced to the SVC/RA junction. The catheter was trimmed and attached to the port. The port aspirates and injects easily. The port was placed in the pocket and closed in 2 layers. The patient tolerated the procedure well. IMPRESSION: Ultrasound and fluoroscopically placed right internal jugular venous access port.
[2018-05-24] MEDS: Albuterol-Ipratrop 3 mg / 0.5 (3 ml) UD IH SCH ×5 (01:04→20:20)
[2018-05-24] MEDS: Cefepime 1gm in NS 100ml 1 GM/100 ML BAG IVPB SCH ×3 (05:55→22:15)
[2018-05-24] MEDS: Vancomycin 1.5 GM in Sodium Chloride 0.9% 500 ML IVPB SCH ×2 (06:58→18:36)
[2018-05-24] MEDS: Calcium-Vit D 250 mg-125 Units Tab UD PO SCH (09:57)
[2018-05-24] MEDS: POLYETHYLENE GLYCOL 3350 17 GM/Dose PACKET PO SCH (09:57)
--- NOTE | 2018-05-24 14:39 | CP.PCM.PN ---
Subjective - Date & Time of Evaluation Date of Evaluation: 05/24/18 Time of Evaluation: 11:45 - Subjective Subjective: Comfortable in bed, no fevers, not short of breath at rest. Objective - Vital Signs/Intake and Output Vital Signs (last 24 hours): Temp Pulse Resp BP Pulse Ox 98.5 F 77 20 138/53 L 96 05/23/18 06:00 05/23/18 06:00 05/23/18 06:00 05/23/18 10:22 05/23/18 06:00 Intake and Output: 05/23/18 05/23/18 06:59 18:59 Intake Total 1440 Balance 1440 - Medications Medications: Current Medications Albuterol/Ipratropium (Duoneb 3 Mg/0.5 Mg (3 Ml) Ud) 3 ml IH [id number] [facility] Last Admin: 05/23/18 13:17 Dose: Not Given Calcium/Vitamin D (Oscal-D 250 Mg-125 Units Tab) 1 tab PO DAILY [facility] Last Admin: 05/23/18 10:25 Dose: 1 tab Docusate Sodium (Colace) 100 mg PO BID [facility] Last Admin: 05/23/18 10:21 Dose: 100 mg Furosemide (Lasix) 40 mg PO DAILY [facility] Last Admin: 05/23/18 10:22 Dose: Not Given Vancomycin HCl 1.5 gm/ Sodium (Chloride) 500 mls @ 167 mls/hr IVPB Q12H [facility]; Protocol Last Admin: 05/23/18 06:43 Dose: 167 mls/hr Cefepime HCl (Maxipime 1gm) 1 gm in 100 mls @ 100 mls/hr IVPB Q8 [facility]; Protocol Last Admin: 05/23/18 05:34 Dose: 100 mls/hr Oxycodone HCl (Oxycodone Immediate Release Tab) 10 mg PO Q6H PRN PRN Reason: Pain, moderate (4-7) Last Admin: 05/23/18 05:29 Dose: 10 mg Polyethylene Glycol (Miralax) 17 gm PO DAILY [facility] Last Admin: 05/22/18 09:23 Dose: 17 gm Valacyclovir HCl (Valtrex) 500 mg PO DAILY [facility]; Protocol Last Admin: 05/23/18 10:25 Dose: 500 mg - Labs Labs: 05/23/18 07:20 05/23/18 07:20 - Constitutional Appears: Chronically Ill - Head Exam Head Exam: NORMAL INSPECTION - Respiratory Exam Respiratory Exam: Decreased Breath Sounds - Cardiovascular Exam Cardiovascular Exam: +S1, +S2 - GI/Abdominal Exam GI & Abdominal Exam: Soft. absent: Tenderness Assessment and Plan - Assessment and Plan (Free Text) Plan: Assessment right lower lobe hospital-acquired pneumonia HTN chronic lymphedema multiple myeloma valvular heart disease morbid obesity with BMI 47 Plan continue Vancomycin and Cefepime day 3 - cultures are negative so far; PCT is <0.05 - if cultures continue to be negative, will de-escalate antibiotics to PO; reviewed CXR will continue to monitor clinically
--- NOTE | 2018-05-24 14:43 | PN ---
DATE: 05/24/2018 HISTORY OF PRESENT ILLNESS: This is a 67-year-old white male with multiple myeloma. Vital signs are stable. Blood pressure 150/83, heart rate is 79. White count is up to 5.9, hemoglobin is 9.8. The patient has stage IV multiple myeloma. He is status post port insertion. He is also status post bronchitis and mild congestive heart failure, being treated with antibiotics and bronchodilators and pain medication and also Lasix. The patient is stable. He does have some anterior rales. He does have severe chest pain on any movement because of lytic bone lesions. Extremities: He does have chronic lymphedema which is an old diagnosis for this patient. Recently, the patient's had intracerebral bleed who is his primary caregiver. He is unable to take care of himself at home. He is unable to get up from the wheelchair or transfer from the to the bed without major assistance. He is unable to walk or ambulate on his own. He is using continuous oxygen because of oxygen desaturation. The patient will continue on present medications and to visit twice in the ICU while he is here. Continue Lasix, bronchodilators, antibiotics, and we will start treatment for his myeloma in the near future. Kavon Garcia MD
--- NOTE | 2018-05-24 19:47 | CP.PCM.CON ---
History of Present Illness - History of Present Illness History of Present Illness: Covering Dr. Godinez 67 year old male with a history of chronic lymphedema, recently diagnosed multiple myeloma with lytic bone lesions, awaiting treatment, admitted with pneumonia. The patient notes to feeling short of breath and was found to be hypoxic in rehab. He was sent to the ER and subsequently admitted for pneumonia treatment. In regards to his multiple myeloma, he did receive a dose of Zometa with Dr. Godinez and is scheduled to start chemotherapy with her on . Past medical history: Chronic lymphedema, multiple myeloma Past surgical history: Portacath Family history: Denies hematologic and oncologic problmes Social history: Denies tobacco, alcohol, and illicit drug use. Allergies: NKA Review of systems: All remaining review of systems including HEENT, cardiovascular, respiratory, gastrointestinal, genitourinary, musculoskeletal, dermatologic, neurologic, and psychaitric are negative unless mentioned in the HPI. Past Patient History - Past Social History Smoking Status: Never Smoked - CARDIAC Hx Hypertension: Yes - PULMONARY Hx Pneumonia: Yes - NEUROLOGICAL Hx Neurological Disorder: No - HEENT Hx HEENT Problems: No - RENAL Hx Chronic Kidney Disease: No - ENDOCRINE/METABOLIC Hx Endocrine Disorders: No - HEMATOLOGICAL/ONCOLOGICAL Hx Blood Disorders: No (lymphedema) Hx Cancer: Yes (multiple myeloma) - INTEGUMENTARY Hx Dermatological Problems: No - MUSCULOSKELETAL/RHEUMATOLOGICAL Hx Musculoskeletal Disorders: No Hx Falls: No - GASTROINTESTINAL Hx Gastrointestinal Disorders: No - GENITOURINARY/GYNECOLOGICAL Hx Genitourinary Disorders: No - PSYCHIATRIC Hx Emotional Abuse: No Hx Physical Abuse: No Hx Substance Use: No - SURGICAL HISTORY Hx Surgeries: No (denies) - ANESTHESIA Hx Anesthesia Reactions: No Hx Malignant Hyperthermia: No Meds Allergies/Adverse Reactions: Allergies Allergy/AdvReac Type Severity Reaction Status Date / Time No Known Allergies Allergy Verified 05/11/18 10:53 - Medications Medications: Current Medications Acetaminophen (Tylenol 325mg Tab) 650 mg PO Q4 PRN PRN Reason: Pain, Mild (1-3) Albuterol/Ipratropium (Duoneb 3 Mg/0.5 Mg (3 Ml) Ud) 3 ml IH [id number] [facility] Last Admin: 05/24/18 13:26 Dose: 3 ml Calcium/Vitamin D (Oscal-D 250 Mg-125 Units Tab) 1 tab PO DAILY [facility] Last Admin: 05/24/18 09:57 Dose: 1 tab Docusate Sodium (Colace) 100 mg PO BID [facility] Last Admin: 05/24/18 17:25 Dose: 100 mg Furosemide (Lasix) 40 mg PO DAILY [facility] Last Admin: 05/24/18 10:01 Dose: Not Given Vancomycin HCl 1.5 gm/ Sodium (Chloride) 500 mls @ 167 mls/hr IVPB Q12H [facility]; Protocol Last Admin: 05/24/18 18:36 Dose: 167 mls/hr Cefepime HCl (Maxipime 1gm) 1 gm in 100 mls @ 100 mls/hr IVPB Q8 [facility]; Protocol Last Admin: 05/24/18 16:03 Dose: 100 mls/hr Ondansetron HCl (Zofran Inj) 4 mg IVP Q6H PRN PRN Reason: Nausea/Vomiting Oxycodone HCl (Oxycodone Immediate Release Tab) 10 mg PO Q6H PRN PRN Reason: Pain, moderate (4-7) Last Admin: 05/23/18 05:29 Dose: 10 mg Polyethylene Glycol (Miralax) 17 gm PO DAILY [facility] Last Admin: 05/24/18 09:57 Dose: 17 gm Physical Exam - Head Exam Head Exam: ATRAUMATIC - Eye Exam Eye Exam: Normal appearance - ENT Exam ENT Exam: Mucous Membranes Dry - Respiratory Exam Respiratory Exam: NORMAL BREATHING PATTERN - Cardiovascular Exam Cardiovascular Exam: +S1, +S2 - GI/Abdominal Exam GI & Abdominal Exam: Normal Bowel Sounds - Extremities Exam Extremities exam: Positive for: pedal edema - Neurological Exam Neurological exam: Oriented x3 - Psychiatric Exam Psychiatric exam: Normal Affect, Normal Mood - Skin Skin Exam: Warm Results - Vital Signs Recent Vital Signs: Last Vital Signs Temp 97.3 F L 05/24/18 15:34 Pulse 78 05/24/18 15:34 Resp 20 05/24/18 15:34 BP 124/78 05/24/18 15:34 Pulse Ox 95 05/24/18 15:34 - Labs Result Diagrams: 05/23/18 07:20 05/23/18 07:20 Assessment & Plan (1) Anemia Assessment and Plan: likely secondary to multiple myeloma and chronic disease Status: Acute (2) Multiple myeloma Assessment and Plan: newly diagnosed lytic bone lesions s/p recent Zometa treatment outpatient treatment with Dr. Godinez - due to treatment on Thank you for this interesting consult. Status: Acute
[2018-05-25] MEDS: Albuterol-Ipratrop 3 mg / 0.5 (3 ml) UD IH SCH ×4 (02:02→20:35)
[2018-05-25] MEDS: Cefepime 1gm in NS 100ml 1 GM/100 ML BAG IVPB SCH ×3 (05:10→21:23)
[2018-05-25] MEDS: Vancomycin 1.5 GM in Sodium Chloride 0.9% 500 ML IVPB SCH (06:20)
[2018-05-25 09:16] LABS: ALB/GLOB RATIO 0.7 (1.1-1.8); ALT/SGPT 19 U/L (7-56); AST/SGOT 67 U/L (17-59); BLOOD UREA NITROGEN 17 mg/dL (7-21); CALCIUM 8.8 mg/dL (8.4-10.5); GFR NON-AFRICAN AMERICAN > 60
[2018-05-25] MEDS: Calcium-Vit D 250 mg-125 Units Tab UD PO SCH (09:25)
[2018-05-25] MEDS: POLYETHYLENE GLYCOL 3350 17 GM/Dose PACKET PO SCH (09:26)
--- NOTE | 2018-05-25 10:24 | PN ---
DATE: 05/25/2018 SUBJECTIVE: A 67-year-old white male with multiple myeloma and lytic bone lesions, pneumonia and chronic lymphedema. The patient is still complaining of severe back pain and chest pain from the lytic bone lesions. He has less cough. He is afebrile. Vitals signs are stable. Today's white count is 5.4. He is receiving IV antibiotics, bronchodilators. The patient is refusing pain medications because of obtundation from pain medication. We will start him on Motrin 800 mg 3 times a day. The patient is upset and crying because his recently had a stroke and she is in the ICU at [facility]. The patient was reassured that his is critical, but stable today. He is seen with his family. He understands the situation. His chest reveal some rhonchi at both bases. His abdomen is obese. extremities show chronic lymphedema without cellulitis. Heart examination sinus rhythm. IMPRESSION: Pneumonia, multiple myeloma, chronic lymphedema and morbid obesity. Kavon Garcia MD
--- NOTE | 2018-05-25 11:04 | CP.PCM.PN ---
Subjective - Date & Time of Evaluation Date of Evaluation: 05/25/18 Time of Evaluation: 10:00 - Subjective Subjective: Feels depressed since his just had a stroke, no fevers. Not short of breath at rest. Objective - Vital Signs/Intake and Output Vital Signs (last 24 hours): Temp Pulse Resp BP Pulse Ox 98 F 79 20 150/83 97 05/24/18 06:00 05/24/18 06:00 05/24/18 06:00 05/24/18 06:00 05/24/18 06:00 Intake and Output: 05/24/18 05/24/18 06:59 18:59 Intake Total 1200 360 Output Total 1200 Balance 0 360 - Medications Medications: Current Medications Acetaminophen (Tylenol 325mg Tab) 650 mg PO Q4 PRN PRN Reason: Pain, Mild (1-3) Albuterol/Ipratropium (Duoneb 3 Mg/0.5 Mg (3 Ml) Ud) 3 ml IH [id number] [facility] Last Admin: 05/24/18 13:26 Dose: 3 ml Calcium/Vitamin D (Oscal-D 250 Mg-125 Units Tab) 1 tab PO DAILY [facility] Last Admin: 05/24/18 09:57 Dose: 1 tab Docusate Sodium (Colace) 100 mg PO BID [facility] Last Admin: 05/24/18 09:58 Dose: 100 mg Furosemide (Lasix) 40 mg PO DAILY [facility] Last Admin: 05/24/18 10:01 Dose: Not Given Vancomycin HCl 1.5 gm/ Sodium (Chloride) 500 mls @ 167 mls/hr IVPB Q12H [facility]; Protocol Last Admin: 05/24/18 06:58 Dose: 167 mls/hr Cefepime HCl (Maxipime 1gm) 1 gm in 100 mls @ 100 mls/hr IVPB Q8 [facility]; Protocol Last Admin: 05/24/18 05:55 Dose: 100 mls/hr Ondansetron HCl (Zofran Inj) 4 mg IVP Q6H PRN PRN Reason: Nausea/Vomiting Oxycodone HCl (Oxycodone Immediate Release Tab) 10 mg PO Q6H PRN PRN Reason: Pain, moderate (4-7) Last Admin: 05/23/18 05:29 Dose: 10 mg Polyethylene Glycol (Miralax) 17 gm PO DAILY [facility] Last Admin: 05/24/18 09:57 Dose: 17 gm - Labs Labs: 05/23/18 07:20 05/23/18 07:20 - Constitutional Appears: Chronically Ill - Head Exam Head Exam: NORMAL INSPECTION - Respiratory Exam Respiratory Exam: Decreased Breath Sounds - Cardiovascular Exam Cardiovascular Exam: +S1, +S2 - GI/Abdominal Exam GI & Abdominal Exam: Soft. absent: Tenderness Assessment and Plan - Assessment and Plan (Free Text) Plan: Assessment right lower lobe hospital-acquired pneumonia HTN chronic lymphedema multiple myeloma valvular heart disease morbid obesity with BMI 47 Plan continue Vancomycin and Cefepime day 4 - cultures are negative so far; PCT is <0.05 - cultures continue to be negative, will d/ Vancomycin; reviewed CXR - target 4-7 days of antibiotics will continue to monitor clinically
[2018-05-26] MEDS: Albuterol-Ipratrop 3 mg / 0.5 (3 ml) UD IH SCH ×4 (02:01→20:20)
[2018-05-26] MEDS: Cefepime 1gm in NS 100ml 1 GM/100 ML BAG IVPB SCH ×3 (05:19→21:26)
[2018-05-26] MEDS: POLYETHYLENE GLYCOL 3350 17 GM/Dose PACKET PO SCH (10:57)
[2018-05-26] MEDS: Calcium-Vit D 250 mg-125 Units Tab UD PO SCH (10:58)
[2018-05-26] MEDS: Vancomycin 1.5 GM in Sodium Chloride 0.9% 500 ML IVPB SCH ×2 (11:53→21:27)
--- NOTE | 2018-05-26 13:46 | PN ---
DATE: 05/26/2018 SUBJECTIVE: A 67-year-old white male with recently diagnosed history of multiple myeloma status post admission from TCU after being hypoxic and short of breath, found to have pneumonia. The patient is on IV antibiotics, bronchodilators, oxygen. He is doing well. He is status post port for chemotherapy. He will be starting as soon as his pneumonia has cleared. PHYSICAL EXAMINATION: GENERAL: He has less shortness of breath. Still has severe chest pain because of lytic bone lesions. VITAL SIGNS: Stable. He is afebrile today, temperature is 98.4, blood pressure 125/77. CHEST: Rhonchi at both bases. ABDOMEN: Benign. EXTREMITIES: With chronic lymphedema, unchanged from previous. LABORATORY DATA: Platelet count is 331,000, hemoglobin is stable at 9.8, is 5.4. Kavon Garcia MD
--- NOTE | 2018-05-26 14:48 | CP.PCM.PN ---
Subjective - Date & Time of Evaluation Date of Evaluation: 05/26/18 Time of Evaluation: 12:00 - Subjective Subjective: No fevers, not in distress but still somewhat melancholic. Objective - Vital Signs/Intake and Output Vital Signs (last 24 hours): Temp Pulse Resp BP Pulse Ox 97.8 F 78 18 139/77 100 05/25/18 06:00 05/25/18 06:00 05/25/18 06:00 05/25/18 06:00 05/25/18 06:00 - Medications Medications: Current Medications Acetaminophen (Tylenol 325mg Tab) 650 mg PO Q4 PRN PRN Reason: Pain, Mild (1-3) Albuterol/Ipratropium (Duoneb 3 Mg/0.5 Mg (3 Ml) Ud) 3 ml IH [id number] [facility] Last Admin: 05/25/18 08:50 Dose: 3 ml Calcium/Vitamin D (Oscal-D 250 Mg-125 Units Tab) 1 tab PO DAILY [facility] Last Admin: 05/25/18 09:25 Dose: 1 tab Docusate Sodium (Colace) 100 mg PO BID [facility] Last Admin: 05/25/18 09:25 Dose: 100 mg Furosemide (Lasix) 40 mg PO DAILY [facility] Last Admin: 05/25/18 09:37 Dose: Not Given Vancomycin HCl 1.5 gm/ Sodium (Chloride) 500 mls @ 167 mls/hr IVPB Q12H [facility]; Protocol Last Admin: 05/25/18 06:20 Dose: 167 mls/hr Cefepime HCl (Maxipime 1gm) 1 gm in 100 mls @ 100 mls/hr IVPB Q8 [facility]; Protocol Last Admin: 05/25/18 05:10 Dose: 100 mls/hr Ibuprofen (Motrin Tab) 800 mg PO TID [facility] Last Admin: 05/25/18 09:26 Dose: 800 mg Ondansetron HCl (Zofran Inj) 4 mg IVP Q6H PRN PRN Reason: Nausea/Vomiting Oxycodone HCl (Oxycodone Immediate Release Tab) 10 mg PO Q6H PRN PRN Reason: Pain, moderate (4-7) Last Admin: 05/23/18 05:29 Dose: 10 mg Polyethylene Glycol (Miralax) 17 gm PO DAILY [facility] Last Admin: 02/17/19 09:26 Dose: 17 gm - Labs Labs: 05/23/18 07:20 05/25/18 08:40 - Constitutional Appears: Chronically Ill - Head Exam Head Exam: NORMAL INSPECTION - Respiratory Exam Respiratory Exam: Decreased Breath Sounds - Cardiovascular Exam Cardiovascular Exam: +S1, +S2 - GI/Abdominal Exam GI & Abdominal Exam: Soft. absent: Tenderness Assessment and Plan - Assessment and Plan (Free Text) Plan: Assessment right lower lobe hospital-acquired pneumonia HTN chronic lymphedema multiple myeloma valvular heart disease morbid obesity with BMI 47 Plan continue Cefepime day 5 - cultures are negative so far; PCT is <0.05 - cultures continue to be negative; reviewed CXR - target 4-7 days of antibiotics will continue to monitor clinically
[2018-05-27] MEDS: Albuterol-Ipratrop 3 mg / 0.5 (3 ml) UD IH SCH ×4 (03:20→20:11)
[2018-05-27] MEDS: Cefepime 1gm in NS 100ml 1 GM/100 ML BAG IVPB SCH ×3 (06:20→23:22)
[2018-05-27] MEDS: Vancomycin 1.5 GM in Sodium Chloride 0.9% 500 ML IVPB SCH ×2 (06:21→18:16)
[2018-05-27] MEDS: POLYETHYLENE GLYCOL 3350 17 GM/Dose PACKET PO SCH (10:23)
[2018-05-27] MEDS: Calcium-Vit D 250 mg-125 Units Tab UD PO SCH (10:23)
--- NOTE | 2018-05-27 12:57 | PN ---
DATE: 05/27/2018 SUBJECTIVE: A 67-year-old white male, newly diagnosed multiple myeloma, recent hypoxia, shortness of breath and pneumonia. The patient is afebrile today. Vital signs are stable. He is being treated with IV antibiotics, bronchodilators and oxygen. He has a port inserted, which will be needed for starting his chemotherapy, possibly next week. The patient is doing some physical therapy and occupational therapy. PHYSICAL EXAMINATION: CHEST: His chest is clear today. HEART: Regular sinus rhythm. EXTREMITIES: Show chronic lymphedema. ASSESSMENT: He still has severe pain in the back and the chest from lytic bone lesions. PLAN: To finish his antibiotics, continue physical therapy and discharge home probably in two to three days. Kavon Garcia MD
--- NOTE | 2018-05-27 14:47 | CP.PCM.PN ---
Subjective - Date & Time of Evaluation Date of Evaluation: 05/27/18 Time of Evaluation: 11:50 - Subjective Subjective: Port for chemotherapy has been inserted, no fevers. Objective - Vital Signs/Intake and Output Vital Signs (last 24 hours): Temp Pulse Resp BP Pulse Ox 97.4 F L 76 18 137/80 99 05/26/18 14:24 05/26/18 14:24 05/26/18 14:24 05/26/18 14:24 05/26/18 14:24 Intake and Output: 05/26/18 05/26/18 06:59 18:59 Intake Total 720 Balance 720 - Medications Medications: Current Medications Acetaminophen (Tylenol 325mg Tab) 650 mg PO Q4 PRN PRN Reason: Pain, Mild (1-3) Albuterol/Ipratropium (Duoneb 3 Mg/0.5 Mg (3 Ml) Ud) 3 ml IH [id number] [facility] Last Admin: 05/26/18 14:15 Dose: 3 ml Calcium/Vitamin D (Oscal-D 250 Mg-125 Units Tab) 1 tab PO DAILY [facility] Last Admin: 05/26/18 10:58 Dose: 1 tab Docusate Sodium (Colace) 100 mg PO BID [facility] Last Admin: 05/26/18 10:58 Dose: 100 mg Furosemide (Lasix) 40 mg PO DAILY [facility] Last Admin: 05/26/18 10:57 Dose: 40 mg Vancomycin HCl 1.5 gm/ Sodium (Chloride) 500 mls @ 167 mls/hr IVPB Q12H [facility]; Protocol Last Admin: 05/26/18 11:53 Dose: 167 mls/hr Cefepime HCl (Maxipime 1gm) 1 gm in 100 mls @ 100 mls/hr IVPB Q8 [facility]; Protocol Last Admin: 05/26/18 14:29 Dose: 100 mls/hr Ibuprofen (Motrin Tab) 800 mg PO TID [facility] Last Admin: 05/26/18 10:58 Dose: 800 mg Ondansetron HCl (Zofran Inj) 4 mg IVP Q6H PRN PRN Reason: Nausea/Vomiting Oxycodone HCl (Oxycodone Immediate Release Tab) 10 mg PO Q6H PRN PRN Reason: Pain, moderate (4-7) Last Admin: 05/23/18 05:29 Dose: 10 mg Polyethylene Glycol (Miralax) 17 gm PO DAILY [facility] Last Admin: 05/26/18 10:57 Dose: 17 gm - Labs Labs: 05/23/18 07:20 05/25/18 08:40 - Constitutional Appears: Chronically Ill - Head Exam Head Exam: NORMAL INSPECTION - Respiratory Exam Respiratory Exam: Decreased Breath Sounds - Cardiovascular Exam Cardiovascular Exam: +S1, +S2 - GI/Abdominal Exam GI & Abdominal Exam: Soft. absent: Tenderness Assessment and Plan - Assessment and Plan (Free Text) Plan: Assessment right lower lobe hospital-acquired pneumonia HTN chronic lymphedema multiple myeloma valvular heart disease morbid obesity with BMI 47 Plan continue Cefepime day 6 - cultures are negative so far; PCT is <0.05 - cultures continue to be negative; reviewed CXR - target 4-7 days of antibiotics will continue to monitor clinically
[2018-05-27 22:59] VITALS: RESP 18
[2018-05-28] MEDS: Albuterol-Ipratrop 3 mg / 0.5 (3 ml) UD IH SCH ×4 (01:24→19:47)
[2018-05-28] MEDS: Cefepime 1gm in NS 100ml 1 GM/100 ML BAG IVPB SCH ×3 (06:30→15:08)
[2018-05-28] MEDS: Vancomycin 1.5 GM in Sodium Chloride 0.9% 500 ML IVPB SCH (06:30)
--- NOTE | 2018-05-28 08:25 | CP.PCM.PN ---
<Derrek Phillip - Last Filed: 05/28/18 16:19> Subjective - Date & Time of Evaluation Date of Evaluation: 05/28/18 Time of Evaluation: 07:00 - Subjective Subjective: Medicine progress note: Patient seen and examined at bedside. No acute events overnight. Patient complains of diffuse whole body pain and chest pain related to the multiple myeloma. Denies any other complaints. 12 point ROS performed and negative other than stated above. Objective - Vital Signs/Intake and Output Vital Signs (last 24 hours): Temp Pulse Resp BP Pulse Ox 97.6 F 82 18 131/81 100 05/27/18 22:58 05/27/18 22:58 05/27/18 22:58 05/27/18 22:58 05/27/18 22:58 Intake and Output: 05/28/18 05/28/18 06:59 18:59 Intake Total 480 Balance 480 - Medications Medications: Current Medications Acetaminophen (Tylenol 325mg Tab) 650 mg PO Q4 PRN PRN Reason: Pain, Mild (1-3) Albuterol/Ipratropium (Duoneb 3 Mg/0.5 Mg (3 Ml) Ud) 3 ml IH [id number] [facility] Last Admin: 05/28/18 01:24 Dose: 3 ml Calcium/Vitamin D (Oscal-D 250 Mg-125 Units Tab) 1 tab PO DAILY [facility] Last Admin: 05/27/18 10:23 Dose: 1 tab Docusate Sodium (Colace) 100 mg PO BID [facility] Last Admin: 05/27/18 18:19 Dose: 100 mg Furosemide (Lasix) 40 mg PO DAILY [facility] Last Admin: 05/27/18 10:24 Dose: 40 mg Vancomycin HCl 1.5 gm/ Sodium (Chloride) 500 mls @ 167 mls/hr IVPB Q12H [facility]; Protocol Last Admin: 05/28/18 06:30 Dose: 167 mls/hr Cefepime HCl (Maxipime 1gm) 1 gm in 100 mls @ 100 mls/hr IVPB Q8 [facility]; Protocol Last Admin: 05/28/18 06:30 Dose: 100 mls/hr Ibuprofen (Motrin Tab) 800 mg PO TID [facility] Last Admin: 05/27/18 18:15 Dose: Not Given Ondansetron HCl (Zofran Inj) 4 mg IVP Q6H PRN PRN Reason: Nausea/Vomiting Polyethylene Glycol (Miralax) 17 gm PO DAILY [facility] Last Admin: 05/27/18 10:23 Dose: Not Given - Labs Labs: 05/23/18 07:20 05/25/18 08:40 - Constitutional Appears: No Acute Distress - Head Exam Head Exam: ATRAUMATIC, NORMOCEPHALIC - Eye Exam Eye Exam: EOMI - ENT Exam ENT Exam: Mucous Membranes Moist - Respiratory Exam Respiratory Exam: Clear to Ausculation Bilateral. absent: Rales, Wheezes - Cardiovascular Exam Cardiovascular Exam: REGULAR RHYTHM, +S1, +S2 - GI/Abdominal Exam GI & Abdominal Exam: Soft. absent: Tenderness - Extremities Exam Extremities Exam: Pedal Edema. absent: Calf Tenderness Additional comments: Bilateral lymphedema - Neurological Exam Neurological Exam: Alert, Awake, Oriented x3 - Psychiatric Exam Psychiatric exam: Normal Mood - Skin Skin Exam: Dry, Warm Assessment and Plan - Assessment and Plan (Free Text) Assessment: 1. Right lower lobe healthcare associated pneumonia 2. Recent diagnosis of multiple myeloma 3. Lower extremity lymphedema 4. Hypertension 5. Valvular heart disease 6. BMI 47 Continue with vancomycin and cefepime for his pneumonia as per infectious disease. For his body and chest pain associated with a lytic lesions continue with Motrin and added Percocet. We will follow-up hematology oncology re commendations. Patient was given 1 dose of Zometa. Continue with Lasix p.o. 40 mg daily for his lower extremity lymphedema. Encouraged and counseled on importance of diet and exercise. Continue to monitor for any changes. Case and plan was reviewed and discussed with Dr. Harper. <Aramis Harper - Last Filed: 05/28/18 20:56> Objective - Vital Signs/Intake and Output Vital Signs (last 24 hours): Temp Pulse Resp BP Pulse Ox 98 F 82 18 125/77 96 05/28/18 06:00 05/28/18 06:00 05/28/18 06:00 05/28/18 10:03 05/28/18 06:00 Intake and Output: 05/28/18 05/29/18 18:59 06:59 Intake Total 920 Balance 920 - Medications Medications: Current Medications Acetaminophen (Tylenol 325mg Tab) 650 mg PO Q4 PRN PRN Reason: Pain, Mild (1-3) Albuterol/Ipratropium (Duoneb 3 Mg/0.5 Mg (3 Ml) Ud) 3 ml IH [id number] [facility] Last Admin: 05/28/18 19:47 Dose: 3 ml Calcium/Vitamin D (Oscal-D 250 Mg-125 Units Tab) 1 tab PO DAILY [facility] Last Admin: 05/28/18 10:03 Dose: 1 tab Docusate Sodium (Colace) 100 mg PO BID [facility] Last Admin: 05/28/18 17:37 Dose: 100 mg Furosemide (Lasix) 40 mg PO BID [facility] Ibuprofen (Motrin Tab) 800 mg PO TID [facility] Last Admin: 05/28/18 17:35 Dose: Not Given Ondansetron HCl (Zofran Inj) 4 mg IVP Q6H PRN PRN Reason: Nausea/Vomiting Oxycodone/Acetaminophen (Percocet 5/325 Mg Tab) 1 tab PO Q6H PRN PRN Reason: Pain, moderate (4-7) Stop: 05/31/18 09:01 Polyethylene Glycol (Miralax) 17 gm PO DAILY [facility] Last Admin: 05/28/18 10:04 Dose: Not Given - Labs Labs: 05/23/18 07:20 05/25/18 08:40 Assessment and Plan - Assessment and Plan (Free Text) Assessment: Pt seen and examined by me. I have reviewed the note of the medical territory manager and I agree with it. I have discussed the assessment and plan with the resident. I have reviewed the medications and the last labs. Pt with health-care associated pneumonia. He ramirez been on IV Abx. He has myeloma and will need treatment. He has a port that was placed in the r chest. I will increase his Lasix to 40 mg bid. He is asking for better pain control, so I will add Percocet to his medications. He has Lymphedema.
[2018-05-28] MEDS ORDERED: Oxycodone/Acetaminophen 5/325 mg Tab PO PRN (09:00)
[2018-05-28] MEDS: Calcium-Vit D 250 mg-125 Units Tab UD PO SCH (10:03)
[2018-05-28] MEDS: POLYETHYLENE GLYCOL 3350 17 GM/Dose PACKET PO SCH (10:04)
--- NOTE | 2018-05-28 16:37 | CP.PCM.PN ---
Subjective - Date & Time of Evaluation Date of Evaluation: 05/28/18 Time of Evaluation: 09:50 - Subjective Subjective: Feeling better, no cough currently, no SOB at rest, no fevers. Objective - Vital Signs/Intake and Output Vital Signs (last 24 hours): Temp Pulse Resp BP Pulse Ox 98 F 78 20 146/84 99 05/27/18 06:30 05/27/18 06:30 05/27/18 06:30 05/27/18 10:24 05/27/18 12:15 Intake and Output: 05/27/18 05/27/18 06:59 18:59 Intake Total 360 Balance 360 - Medications Medications: Current Medications Acetaminophen (Tylenol 325mg Tab) 650 mg PO Q4 PRN PRN Reason: Pain, Mild (1-3) Albuterol/Ipratropium (Duoneb 3 Mg/0.5 Mg (3 Ml) Ud) 3 ml IH [id number] [facility]S [facility]CLUDE 234 BEDS AT [facility] Last Admin: 05/27/18 13:20 Dose: 3 ml Calcium/Vitamin D (Oscal-D 250 Mg-125 Units Tab) 1 tab PO DAILY [facility] 234 BEDS AT [facility] Last Admin: 05/27/18 10:23 Dose: 1 tab Docusate Sodium (Colace) 100 mg PO BID [facility] 234 BEDS AT [facility] Last Admin: 05/27/18 10:23 Dose: 100 mg Furosemide (Lasix) 40 mg PO DAILY [facility] 234 [facility]S AT [facility] Last Admin: 05/27/18 10:24 Dose: 40 mg Vancomycin HCl 1.5 gm/ Sodium (Chloride) 500 mls @ 167 mls/hr IVPB Q12H [facility]; Protocol Last Admin: 05/27/18 06:21 Dose: 167 mls/hr Cefepime HCl (Maxipime 1gm) 1 gm in 100 mls @ 100 mls/hr IVPB Q8 [facility]; Protocol Last Admin: 05/27/18 06:20 Dose: 100 mls/hr Ibuprofen (Motrin Tab) 800 mg PO TID [facility] 234 BEDS AT [facility] Last Admin: 05/27/18 10:26 Dose: Not Given Ondansetron HCl (Zofran Inj) 4 mg IVP Q6H PRN PRN Reason: Nausea/Vomiting Polyethylene Glycol (Miralax) 17 gm PO DAILY [facility] 234 [facility]S [facility] Last Admin: 05/27/18 10:23 Dose: Not Given - Labs Labs: 05/23/18 07:20 02/17/19 08:40 - Constitutional Appears: Chronically Ill - Head Exam Head Exam: NORMAL INSPECTION - Neck Exam Neck Exam: absent: Meningismus - Respiratory Exam Respiratory Exam: Decreased Breath Sounds - Cardiovascular Exam Cardiovascular Exam: +S1, +S2 - GI/Abdominal Exam GI & Abdominal Exam: Soft. absent: Tenderness Assessment and Plan - Assessment and Plan (Free Text) Plan: Assessment right lower lobe hospital-acquired pneumonia, clinically improved HTN chronic lymphedema multiple myeloma valvular heart disease morbid obesity with BMI 47 Plan on Vancomycin and Cefepime day 7 - cultures are negative so far; PCT is <0.05 - cultures continue to be negative; reviewed CXR -will d/c antibiotics today will continue to monitor clinically
[2018-05-29] MEDS: Albuterol-Ipratrop 3 mg / 0.5 (3 ml) UD IH SCH ×3 (01:22→13:23)
[2018-05-29 08:00] LABS: HEMOGLOBIN 9.2 g/dL (14.0-18.0); MEAN CELL VOLUME 94.1 fl (80.0-105.0); MEAN CORPUSCULAR HGB CONC 31.8 g/dl (31.0-37.0); RBC 3.07 10^6/uL (3.5-6.1); RED CELL DISTRIBUTION WIDTH 16.2 % (11.5-14.5); WHITE BLOOD COUNT 5.1 10^3/uL (4.5-11.0)
[2018-05-29 08:23] LABS: ALB/GLOB RATIO 0.7 (1.1-1.8); ALBUMIN 3.8 g/dL (3.0-4.8); ALT/SGPT 17 U/L (7-56); AST/SGOT 58 U/L (17-59); BLOOD UREA NITROGEN 14 mg/dL (7-21); CALCIUM 9.2 mg/dL (8.4-10.5); GFR NON-AFRICAN AMERICAN > 60
[2018-05-29 08:27] VITALS: PULSE 89; TEMP 97.8; O2SAT 93
[2018-05-29] MEDS: Calcium-Vit D 250 mg-125 Units Tab UD PO SCH (11:04)
[2018-05-29] MEDS: POLYETHYLENE GLYCOL 3350 17 GM/Dose PACKET PO SCH (11:07)
[2018-05-29] MEDS ORDERED: Bacitracin 500 Units/gm Oint Foilpak UD TOP SCH (12:45)
--- NOTE | 2018-05-29 13:23 | CP.PCM.CON ---
<AnibalEl - Last Filed: 05/29/18 13:15> History of Present Illness - History of Present Illness History of Present Illness: Podiatry consult note for Dr. Whatley: 67 year old male with PMH of HTN, chronic lymphedema, multiple, myeloma, valvular heart disease, morbid obesity with BMI 47 wSeen and evaluated in the bedside for redness, pain and chronic lymphdema of b/l LE. Patient states that he has b/l lymphdema since long time. He states that his heels hurts him when he ambulates and this is hapening since years. He states that yesterday he started developing redness in his legs. Patient states that he is recently diagnosed with multiple myeloma. He states that he didn't start any chemotherapy yet. He states that he is admitted to the hospital to receive treatment for pneumonia. Patient states that he is on Abx since 10 days but yesterday he developed swelling in his lips and he beleives that it's due to abx. Patient denies any recent fever or chills (Except one episode of fever he developed after getting the bone moarrow biopsy 2 weeks ago), He denies any nausea, vomiting, ,headache, dizziness, diarrhea or dysuria. He states that he had recent episodes of cough and SOB due to pneumonia. PMH: HTN, chronic lymphedema, multiple myeloma, valvular heart disease, morbid obesity with BMI 47. PSH: Bone marrow biopsy. Allergies: NKDA. Social Hx: Denies smoking, EtOH or Illicit drug use. Review of Systems - Review of Systems Review of Systems: As per HPI - Constitutional Constitutional: As Per HPI Past Patient History - Past Social History Smoking Status: Never Smoked - CARDIAC Hx Hypertension: Yes - PULMONARY Hx Pneumonia: Yes - NEUROLOGICAL Hx Neurological Disorder: No - HEENT Hx HEENT Problems: No - RENAL Hx Chronic Kidney Disease: No - ENDOCRINE/METABOLIC Hx Endocrine Disorders: No - HEMATOLOGICAL/ONCOLOGICAL Hx Blood Disorders: No (lymphedema) Hx Cancer: Yes (multiple myeloma) - INTEGUMENTARY Hx Dermatological Problems: No - MUSCULOSKELETAL/RHEUMATOLOGICAL Hx Musculoskeletal Disorders: No Hx Falls: No - GASTROINTESTINAL Hx Gastrointestinal Disorders: No - GENITOURINARY/GYNECOLOGICAL Hx Genitourinary Disorders: No - PSYCHIATRIC Hx Emotional Abuse: No Hx Physical Abuse: No Hx Substance Use: No - SURGICAL HISTORY Hx Surgeries: No (denies) - ANESTHESIA Hx Anesthesia Reactions: No Hx Malignant Hyperthermia: No Meds Allergies/Adverse Reactions: Allergies Allergy/AdvReac Type Severity Reaction Status Date / Time No Known Allergies Allergy Verified 05/11/18 10:53 - Medications Medications: Current Medications Acetaminophen (Tylenol 325mg Tab) 650 mg PO Q4 PRN PRN Reason: Pain, Mild (1-3) Albuterol/Ipratropium (Duoneb 3 Mg/0.5 Mg (3 Ml) Ud) 3 ml IH [id number] [facility] Last Admin: 05/29/18 07:47 Dose: 3 ml Bacitracin (Bacitracin) 1 ea TOP DAILY [facility] Betamethasone/Clotrimazole (Lotrisone) 0 gm TOP BID [facility] Calcium/Vitamin D (Oscal-D 250 Mg-125 Units Tab) 1 tab PO DAILY [facility] Last Admin: 05/29/18 11:04 Dose: 1 tab Docusate Sodium (Colace) 100 mg PO BID [facility] Last Admin: 05/29/18 11:04 Dose: 100 mg Furosemide (Lasix) 40 mg PO BID [facility] Last Admin: 05/29/18 11:04 Dose: 40 mg Ibuprofen (Motrin Tab) 800 mg PO TID [facility] Last Admin: 05/28/18 17:35 Dose: Not Given Ondansetron HCl (Zofran Inj) 4 mg IVP Q6H PRN PRN Reason: Nausea/Vomiting Oxycodone/Acetaminophen (Percocet 5/325 Mg Tab) 1 tab PO Q6H PRN PRN Reason: Pain, moderate (4-7) Stop: 05/31/18 09:01 Polyethylene Glycol (Miralax) 17 gm PO DAILY [facility] Last Admin: 05/29/18 11:07 Dose: Not Given Physical Exam - Head Exam Head Exam: ATRAUMATIC, NORMOCEPHALIC - Extremities Exam Additional comments: Bilateral Lower Extremity Exam VASC: DP/PT non-palpable due to sever edema, Temp gradient warm to warm b/l from proximal to distal, Massive b/l LE edema noted up to the knees. Patches of erythema noted b/l of the lower 1/3 of the leg. NEURO: Gross sensation intact. Protective sensation diminished. DERM: Massive b/l LE edema noted up to the knees. Patches of erythema noted b/l of the lower 1/3 of the leg. Skin changes noted on LE b/l R > L in the form of dry patches, cracks and lichnification. MSK: No pain on palpation to the feet and legs b/l. Muscle power 5/5 to all groups b/l. - Neurological Exam Neurological exam: Alert, Oriented x3 - Psychiatric Exam Psychiatric exam: Normal Affect Results - Vital Signs Recent Vital Signs: Last Vital Signs Temp 97.8 F 05/29/18 08:23 Pulse 89 05/29/18 08:23 Resp 18 05/29/18 08:23 BP 133/85 05/29/18 11:04 Pulse Ox 93 L 05/29/18 08:23 - Labs Result Diagrams: 05/29/18 07:40 05/29/18 07:40 Labs: Laboratory Results - last 24 hr 05/29/18 05/29/18 07:40 07:40 WBC 5.1 RBC 3.07 L Hgb 9.2 L Hct 28.9 L MCV 94.1 MCH 30.0 MCHC 31.8 RDW 16.2 H Plt Count 371 MPV 9.0 Sodium 141 Potassium 4.3 Chloride 104 Carbon Dioxide 28 Anion Gap 13 BUN 14 Creatinine 0.7 L Est GFR ( Amer) > 60 Est GFR (Non-Af Amer) > 60 Random Glucose 100 Calcium 9.2 Phosphorus 3.3 Magnesium 2.3 H Total Bilirubin 0.4 AST 58 ALT 17 Alkaline Phosphatase 80 Total Protein 9.1 H Albumin 3.8 Globulin 5.3 Albumin/Globulin Ratio 0.7 L Assessment & Plan - Assessment and Plan (Free Text) Assessment: 67 year old male with PMH of HTN, chronic lymphedema, multiple, myeloma, valvular heart disease, morbid obesity with BMI 47 wSeen and evaluated in the bedside for cellulitis, pain and chronic lymphdema of b/l LE. Plan: Patient seen and evaluated at the bedside Discussed in detail with Dr. Whatley Charts, labs and vitals reviewed; Afebrile, positive leukocytosis of 10.4 Ordered b/l LE venous duplex Ordered Lotrisone cream topical BID Ordered Ammonium lactate 12% topical BID IDs on board; Reccs appreciated. Applied b/l Optifoam to the heels for cushioning. Thank you for the consult Podiatry will continue to follow up the patient while in house - Date & Time Date: 05/29/18 Time: 13:24 <Joe Whatley - Last Filed: 05/30/18 17:12> Results - Vital Signs Recent Vital Signs: Last Vital Signs Temp 97.8 F 05/29/18 08:23 Pulse 89 05/29/18 08:23 Resp 18 05/29/18 08:23 BP 148/88 05/29/18 17:41 Pulse Ox 93 L 05/29/18 08:23 - Labs Result Diagrams: 05/29/18 07:40 05/29/18 07:40 Attending/Attestation - Attestation I have personally seen and examined this patient.: Yes I have fully participated in the care of the patient.: Yes I have reviewed all pertinent clinical information: Yes
--- NOTE | 2018-05-29 14:08 | CP.PCM.DIS ---
<Derrek Phillip - Last Filed: 05/29/18 14:14> Provider - Provider Date of Admission: 05/21/18 19:20 Attending physician: Kavon Garcia MD Consults: 05/21/18 19:53 Physician Consult Routine Comment: Consulting Provider: Chinedu Pacheco Consulting Physician: Chinedu Pacheco Reason for Consult: possible pneumonia 05/22/18 02:48 Social Work Referral Routine Comment: protocol Physician Instructions: Reason For Exam: baylock score >7 05/23/18 09:10 Consult [Physician Consult] Routine Comment: multiple myeloma Consulting Provider: Corinen Godinez Consulting Physician: Corinne Godinez Reason for Consult: multiple myeloma 05/29/18 12:34 Podiatry Consult Routine Comment: Consulting Provider: Kendy Thurman Consulting Physician: Kendy Thurman Reason for Consult: Lymphedema, Cellulites? 05/29/18 12:43 TCU [Evaluation for TRCU] Routine Comment: Physician Instructions: Reason For Exam: eval Time Spent in preparation of Discharge (in minutes): 45 Hospital Course - Lab Results Lab Results: Micro Results 05/22/18 08:30 Blood-Venous Blood Culture - Final NO GROWTH AFTER 5 DAYS 05/22/18 08:30 Blood-Venous Gram Stain - Final TEST NOT PERFORMED 05/22/18 08:15 Blood-Venous Blood Culture - Final NO GROWTH AFTER 5 DAYS 05/22/18 08:15 Blood-Venous Gram Stain - Final TEST NOT PERFORMED 05/21/18 20:00 Blood Blood Culture - Final NO GROWTH AFTER 5 DAYS 05/21/18 20:00 Blood Gram Stain - Final TEST NOT PERFORMED 05/21/18 19:30 Blood Blood Culture - Final NO GROWTH AFTER 5 DAYS 05/21/18 19:30 Blood Gram Stain - Final TEST NOT PERFORMED 05/21/18 19:30 Urine Random Urine Culture - Final No Growth (<1,000 CFU/ML) Most Recent Lab Values WBC 5.1 10^3/uL (4.5-11.0) 05/29/18 07:40 RBC 3.07 10^6/uL (3.5-6.1) L 05/29/18 07:40 Hgb 9.2 g/dL (14.0-18.0) L 05/29/18 07:40 Hct 28.9 % (42.0-52.0) L 05/29/18 07:40 MCV 94.1 fl (80.0-105.0) 05/29/18 07:40 MCH 30.0 pg (25.0-35.0) 05/29/18 07:40 MCHC 31.8 g/dl (31.0-37.0) 05/29/18 07:40 RDW 16.2 % (11.5-14.5) H 05/29/18 07:40 Plt Count 371 10^3/uL (120.0-450.0) 05/29/18 07:40 MPV 9.0 fl (7.0-11.0) 05/29/18 07:40 pCO2 33 mm/Hg (35-45) L 05/21/18 21:02 pO2 74.0 mm/Hg (80-100) L 05/21/18 21:02 HCO3 28.2 mmol/L (21-28) H 05/21/18 21:02 ABG pH 7.54 (7.35-7.45) H 05/21/18 21:02 ABG Total CO2 29.2 mmol.L (22-28) H 05/21/18 21:02 ABG O2 Saturation 97.9 % (95-98) 05/21/18 21:02 ABG Base Excess 5.8 mmol/L (-2.0-3.0) H 05/21/18 21:02 ABG Potassium 2.8 mmol/L (3.6-5.2) L 05/21/18 21:02 Sodium 142.0 mmol/L (132-148) 05/21/18 21:02 Chloride 106.0 mmol/L (98-107) 05/21/18 21:02 Glucose 120 mg/dl (75-110) H 05/21/18 21:02 Lactate 0.9 mmol/L (0.7-2.1) 05/21/18 21:02 FiO2 35.0 % 05/21/18 21:02 Sodium 141 mmol/L (132-148) 05/29/18 07:40 Potassium 4.3 mmol/L (3.6-5.0) 05/29/18 07:40 Chloride 104 mmol/L (98-107) 05/29/18 07:40 Carbon Dioxide 28 mmol/L (21-33) 05/29/18 07:40 Anion Gap 13 (10-20) 05/29/18 07:40 BUN 14 mg/dL (7-21) 05/29/18 07:40 Creatinine 0.7 mg/dl (0.8-1.5) L 05/29/18 07:40 Est GFR ( Amer) > 60 05/29/18 07:40 Est GFR (Non-Af Amer) > 60 05/29/18 07:40 Random Glucose 100 mg/dL (70-110) 05/29/18 07:40 Calcium 9.2 mg/dL (8.4-10.5) 05/29/18 07:40 Phosphorus 3.3 mg/dL (2.5-4.5) 05/29/18 07:40 Magnesium 2.3 mg/dL (1.7-2.2) H 05/29/18 07:40 Total Bilirubin 0.4 mg/dL (0.2-1.3) 05/29/18 07:40 AST 58 U/L (17-59) 05/29/18 07:40 ALT 17 U/L (7-56) 05/29/18 07:40 Alkaline Phosphatase 80 U/L (38-126) 05/29/18 07:40 Lactate Dehydrogenase 529 U/L (333-699) 05/21/18 17:59 Total Creatine Kinase 64 U/L (35-230) 05/21/18 17:59 Troponin I < 0.01 ng/mL 05/21/18 17:59 Total Protein 9.1 g/dL (5.8-8.3) H 05/29/18 07:40 Albumin 3.8 g/dL (3.0-4.8) 05/29/18 07:40 Globulin 5.3 gm/dL 05/29/18 07:40 Albumin/Globulin Ratio 0.7 (1.1-1.8) L 05/29/18 07:40 Procalcitonin < 0.05 NG/ML (0.19-0.49) L 05/22/18 08:30 Arterial Blood Potassium 2.8 mmol/L (3.6-5.2) L 05/21/18 21:02 Influenza Typ A,B (EIA) Negative for flu a/b (NEGATIVE) 05/21/18 19:30 - Hospital Course Hospital Course: 67-year-old male with past medical history of recently diagnosed multiple myeloma, Chronic lymphedema, and right lower lobe pneumonia presents following admission to the TCU. Patient was desaturating in the TCU with SPO2 of 88%, and x-ray showed right lower lobe pneumonia with atelectasis. Of note patient just had inpatient admission for newly diagnosed multiple myeloma confirmed with bone marrow biopsy and serum electrophoresis. Infectious disease was consulted and patient was placed on cefepime. Hematology/Onc was consulted and recommended outpatient treatment with chemo. Patient with lytic bone lesions and was given recent Zometa treatment. Interventional radiology was consulted and placed a venous port for administration of chemotherapy. Patient initially complained of whole body pain and chest pain related to his multiple myeloma however today the patient states that he feels much better and his pain is well controlled. Patient completed his antibiotics course and is being closely monitored. Podiatry was consulted for his lymphedema. Patient has no complaints at this time. Patient agreeable to go to TCU for more rehab. We will continue all inpatient medications as an outpatient. 1. Right lower lobe healthcare associated pneumonia 2. Recent diagnosis of multiple myeloma 3. Lower extremity lymphedema 4. Hypertension 5. Valvular heart disease 6. BMI 47 Discharge Exam - Head Exam Head Exam: ATRAUMATIC, NORMOCEPHALIC - Eye Exam Eye Exam: EOMI, PERRL - Respiratory Exam Respiratory Exam: Clear to PA & Lateral. absent: Rales, Rhonchi, Wheezes - Cardiovascular Exam Cardiovascular Exam: REGULAR RHYTHM, +S1, +S2 - GI/Abdominal Exam GI & Abdominal Exam: Normal Bowel Sounds, Soft. absent: Tenderness - Extremities Exam Additional comments: Lymphedema of bilateral lower extremity - Neurological Exam Neurological exam: Alert, CN II-XII Intact, Oriented x3 - Psychiatric Exam Psychiatric exam: Normal Mood - Skin Skin Exam: Dry, Warm Discharge Plan - Follow Up Plan Condition: IMPROVED Disposition: TRANSF TO SNF Patient education suggested?: Yes Instructions: Multiple Myeloma, Pneumonia, Adult (DC), Chest Pain (DC) Additional Instructions: D/c to TCU resume all inpatient meds <Aramis Harper S - Last Filed: 05/30/18 18:51> Provider - Provider Date of Admission: 05/21/18 19:20 Attending physician: Kavon Garcia MD Consults: 05/21/18 19:53 Physician Consult Routine Comment: Consulting Provider: Chinedu Pacheco Consulting Physician: Chinedu Pacheco Reason for Consult: possible pneumonia 05/22/18 02:48 Social Work Referral Routine Comment: protocol Physician Instructions: Reason For Exam: baylock score >7 05/23/18 09:10 Consult [Physician Consult] Routine Comment: multiple myeloma Consulting Provider: Corinne Godinez Consulting Physician: Corinne Godinez Reason for Consult: multiple myeloma 05/29/18 12:34 Podiatry Consult Routine Comment: Consulting Provider: Kendy Thurman Consulting Physician: Kendy Thurman Reason for Consult: Lymphedema, Cellulites? 05/29/18 12:43 TCU [Evaluation for TRCU] Routine Comment: Physician Instructions: Reason For Exam: [facility] Course - Lab Results Lab Results: Micro Results 05/22/18 08:30 Blood-Venous Blood Culture - Final NO GROWTH AFTER 5 DAYS 05/22/18 08:30 Blood-Venous Gram Stain - Final TEST NOT PERFORMED 05/22/18 08:15 Blood-Venous Blood Culture - Final NO GROWTH AFTER 5 DAYS 05/22/18 08:15 Blood-Venous Gram Stain - Final TEST NOT PERFORMED 05/21/18 20:00 Blood Blood Culture - Final NO GROWTH AFTER 5 DAYS 05/21/18 20:00 Blood Gram Stain - Final TEST NOT PERFORMED 05/21/18 19:30 Blood Blood Culture - Final NO GROWTH AFTER 5 DAYS 05/21/18 19:30 Blood Gram Stain - Final TEST NOT PERFORMED 05/21/18 19:30 Urine Random Urine Culture - Final No Growth (<1,000 CFU/ML) Most Recent Lab Values WBC 5.1 10^3/uL (4.5-11.0) 05/29/18 07:40 RBC 3.07 10^6/uL (3.5-6.1) L 05/29/18 07:40 Hgb 9.2 g/dL (14.0-18.0) L 05/29/18 07:40 Hct 28.9 % (42.0-52.0) L 05/29/18 07:40 MCV 94.1 fl (80.0-105.0) 05/29/18 07:40 MCH 30.0 pg (25.0-35.0) 05/29/18 07:40 MCHC 31.8 g/dl (31.0-37.0) 05/29/18 07:40 RDW 16.2 % (11.5-14.5) H 05/29/18 07:40 Plt Count 371 10^3/uL (120.0-450.0) 05/29/18 07:40 MPV 9.0 fl (7.0-11.0) 05/29/18 07:40 pCO2 33 mm/Hg (35-45) L 05/21/18 21:02 pO2 74.0 mm/Hg (80-100) L 05/21/18 21:02 HCO3 28.2 mmol/L (21-28) H 05/21/18 21:02 ABG pH 7.54 (7.35-7.45) H 05/21/18 21:02 ABG Total CO2 29.2 mmol.L (22-28) H 05/21/18 21:02 ABG O2 Saturation 97.9 % (95-98) 05/21/18 21:02 ABG Base Excess 5.8 mmol/L (-2.0-3.0) H 05/21/18 21:02 ABG Potassium 2.8 mmol/L (3.6-5.2) L 05/21/18 21:02 Sodium 142.0 mmol/L (132-148) 05/21/18 21:02 Chloride 106.0 mmol/L (98-107) 05/21/18 21:02 Glucose 120 mg/dl (75-110) H 05/21/18 21:02 Lactate 0.9 mmol/L (0.7-2.1) 05/21/18 21:02 FiO2 35.0 % 05/21/18 21:02 Sodium 141 mmol/L (132-148) 05/29/18 07:40 Potassium 4.3 mmol/L (3.6-5.0) 05/29/18 07:40 Chloride 104 mmol/L (98-107) 05/29/18 07:40 Carbon Dioxide 28 mmol/L (21-33) 05/29/18 07:40 Anion Gap 13 (10-20) 05/29/18 07:40 BUN 14 mg/dL (7-21) 05/29/18 07:40 Creatinine 0.7 mg/dl (0.8-1.5) L 05/29/18 07:40 Est GFR ( Amer) > 60 05/29/18 07:40 Est GFR (Non-Af Amer) > 60 05/29/18 07:40 Random Glucose 100 mg/dL (70-110) 05/29/18 07:40 Calcium 9.2 mg/dL (8.4-10.5) 05/29/18 07:40 Phosphorus 3.3 mg/dL (2.5-4.5) 05/29/18 07:40 Magnesium 2.3 mg/dL (1.7-2.2) H 05/29/18 07:40 Total Bilirubin 0.4 mg/dL (0.2-1.3) 05/29/18 07:40 AST 58 U/L (17-59) 05/29/18 07:40 ALT 17 U/L (7-56) 05/29/18 07:40 Alkaline Phosphatase 80 U/L (38-126) 05/29/18 07:40 Lactate Dehydrogenase 529 U/L (333-699) 05/21/18 17:59 Total Creatine Kinase 64 U/L (35-230) 05/21/18 17:59 Troponin I < 0.01 ng/mL 05/21/18 17:59 Total Protein 9.1 g/dL (5.8-8.3) H 05/29/18 07:40 Albumin 3.8 g/dL (3.0-4.8) 05/29/18 07:40 Globulin 5.3 gm/dL 05/29/18 07:40 Albumin/Globulin Ratio 0.7 (1.1-1.8) L 05/29/18 07:40 Procalcitonin < 0.05 NG/ML (0.19-0.49) L 05/22/18 08:30 Arterial Blood Potassium 2.8 mmol/L (3.6-5.2) L 05/21/18 21:02 Influenza Typ A,B (EIA) Negative for flu a/b (NEGATIVE) 05/21/18 19:30 - Hospital Course Hospital Course: Pt seen and examined by me. I have reviewed the note of the medical staff manager and I agree with it. I have discussed the assessment and plan with the resident. I have reviewed the medications and the last labs. Pt with new dx of myeloma. He has HCAP and was on Cefepime. He is willing to go to TCU after a long conversation. He has lymphedema and has been placed on Lasix bid. He is obese but some of his wt is due to the lymphedema. He has a port for chemo. HTN is controlled.
[2018-05-29 17:44] VITALS: BP 148/88
[2018-05-29] MEDS ORDERED: Ammonium Lactate 12% Lotion (225 g) EXT SCH (18:00)
[2018-05-29] MEDS ORDERED: Clotrimazole/Betamethasone Cream(15 gm) TOP SCH ×2 (18:00)
--- NOTE | 2018-05-29 20:34 | CP.PCM.PN ---
Subjective - Date & Time of Evaluation Date of Evaluation: 05/29/18 Time of Evaluation: 12:45 - Subjective Subjective: Afebrile, comfortable. Objective - Vital Signs/Intake and Output Vital Signs (last 24 hours): Temp Pulse Resp BP Pulse Ox 98 F 82 18 125/77 96 05/28/18 06:00 05/28/18 06:00 05/28/18 06:00 05/28/18 10:03 05/28/18 06:00 Intake and Output: 05/28/18 05/28/18 06:59 18:59 Intake Total 1230 Balance 1230 - Medications Medications: Current Medications Acetaminophen (Tylenol 325mg Tab) 650 mg PO Q4 PRN PRN Reason: Pain, Mild (1-3) Albuterol/Ipratropium (Duoneb 3 Mg/0.5 Mg (3 Ml) Ud) 3 ml IH [id number] [facility] Last Admin: 05/28/18 14:40 Dose: 3 ml Calcium/Vitamin D (Oscal-D 250 Mg-125 Units Tab) 1 tab PO DAILY [facility] Last Admin: 05/28/18 10:03 Dose: 1 tab Docusate Sodium (Colace) 100 mg PO BID [facility] Last Admin: 05/28/18 10:03 Dose: 100 mg Furosemide (Lasix) 40 mg PO DAILY [facility] Last Admin: 05/28/18 10:03 Dose: 40 mg Ibuprofen (Motrin Tab) 800 mg PO TID [facility] Last Admin: 05/28/18 15:09 Dose: Not Given Ondansetron HCl (Zofran Inj) 4 mg IVP Q6H PRN PRN Reason: Nausea/Vomiting Oxycodone/Acetaminophen (Percocet 5/325 Mg Tab) 1 tab PO Q6H PRN PRN Reason: Pain, moderate (4-7) Stop: 05/31/18 09:01 Polyethylene Glycol (Miralax) 17 gm PO DAILY [facility] Last Admin: 05/28/18 10:04 Dose: Not Given - Labs Labs: 05/23/18 07:20 05/25/18 08:40 - Constitutional Appears: Chronically Ill - Head Exam Head Exam: NORMAL INSPECTION - Respiratory Exam Respiratory Exam: Decreased Breath Sounds - Cardiovascular Exam Cardiovascular Exam: +S1, +S2 - GI/Abdominal Exam GI & Abdominal Exam: Soft. absent: Tenderness Assessment and Plan - Assessment and Plan (Free Text) Plan: Assessment right lower lobe hospital-acquired pneumonia, clinically improved and S/P trreatment HTN chronic lymphedema multiple myeloma valvular heart disease morbid obesity with BMI 47 Plan completed course of Vancomycin and Cefepime will continue to monitor clinically off antibiotics
== END 2018-05-29 19:30 | DRG 194 ==
LOC: ED 16:17 → ERH 19:20 → 2RNO 05-22 02:10 → 5RSO 05-22 21:27
PROVIDERS: ADMIT Internal Medicine; ATTEND Internal Medicine
PROC: 05HM33Z Insertion of Infusion Device into Right Internal Jugular Vein, Percutaneous Approach (ICD-10-PCS; principal; 2018-05-23)
PROC: B543ZZA Ultrasonography of Right Jugular Veins, Guidance (ICD-10-PCS; 2018-05-23)
PROC: B5131ZA Fluoroscopy of Right Jugular Veins using Low Osmolar Contrast, Guidance (ICD-10-PCS; 2018-05-23)
DX: J18.1 Lobar pneumonia, unspecified organism (principal); Z68.42 Body mass index [BMI] 45.0-49.9, adult; C90.00 Multiple myeloma not having achieved remission; J98.11 Atelectasis; I38 Endocarditis, valve unspecified; E66.01 Morbid (severe) obesity due to excess calories; R09.02 Hypoxemia; Y95 Nosocomial condition; I89.0 Lymphedema, not elsewhere classified; G89.3 Neoplasm related pain (acute) (chronic); I11.0 Hypertensive heart disease with heart failure; Z87.01 Personal history of pneumonia (recurrent)

== ENCOUNTER 2018-05-29 19:30 | Inpatient (IN) | payer OTHER, BC ==
[2018-05-29] MEDS: Oxycodone/Acetaminophen 5/325 mg Tab PO PRN (23:54)
[2018-05-30] MEDS: Albuterol-Ipratrop 3 mg / 0.5 (3 ml) UD IH SCH ×4 (01:29→21:11)
[2018-05-30] MEDS: Calcium-Vit D 250 mg-125 Units Tab UD PO SCH (10:09)
[2018-05-30] MEDS: Clotrimazole/Betamethasone Cream(15 gm) TOP SCH ×2 (10:10→17:28)
[2018-05-30] MEDS: POLYETHYLENE GLYCOL 3350 17 GM/Dose PACKET PO SCH (10:11)
[2018-05-30] MEDS: Bacitracin 500 Units/gm Oint Foilpak UD TOP SCH (10:11)
[2018-05-30] MEDS: Ammonium Lactate 12% Lotion (225 g) EXT SCH ×2 (10:11→17:27)
--- NOTE | 2018-05-30 12:06 | CP.PCM.PN ---
<El Barnett - Last Filed: 05/30/18 12:02> Subjective - Date & Time of Evaluation Date of Evaluation: 05/30/18 Time of Evaluation: 12:02 - Subjective Subjective: Podiatry progress note for Dr. Whatley: 67 year old male seen and evaluated in the bedside in TCU for redness, pain and chronic lymphdema of b/l LE. Patient states that he still has pain in his heels. He states that the optifoam fell off his left heel yesterday and he had much pain in his heel when he ambulates. Patient moved yesterday to TCU. Patient denies any overnight fever or chills, He denies any overnight nausea, vomiting, ,headache, dizziness, diarrhea or dysuria. He states that he had recent episodes of cough and SOB due to pneumonia. Objective - Vital Signs/Intake and Output Vital Signs (last 24 hours): Temp Pulse Resp BP Pulse Ox 116/68 05/30/18 10:10 Intake and Output: 05/30/18 05/30/18 06:59 18:59 Intake Total 150 Balance 150 - Medications Medications: Current Medications Acetaminophen (Tylenol 325mg Tab) 325 mg PO Q4H PRN; Protocol PRN Reason: Pain, Mild (1-3) Albuterol/Ipratropium (Duoneb 3 Mg/0.5 Mg (3 Ml) Ud) 3 ml IH Q6H [facility]; Protocol Last Admin: 05/30/18 07:39 Dose: 3 ml Bacitracin (Bacitracin) 1 ea TOP DAILY [facility] Last Admin: 05/30/18 10:11 Dose: 1 ea Betamethasone/Clotrimazole (Lotrisone) 0 gm TOP BID [facility]; Protocol Last Admin: 05/30/18 10:10 Dose: 1 applic Calcium/Vitamin D (Oscal-D 250 Mg-125 Units Tab) 1 tab PO DAILY [facility]; Protocol Last Admin: 05/30/18 10:09 Dose: 1 tab Docusate Sodium (Colace) 100 mg PO BID [facility]; Protocol Last Admin: 05/30/18 10:09 Dose: 100 mg Furosemide (Lasix) 40 mg PO BID [facility]; Protocol Last Admin: 05/30/18 10:10 Dose: 40 mg Ibuprofen (Motrin Tab) 800 mg PO TID [facility]; Protocol Last Admin: 05/30/18 10:16 Dose: Not Given Lactic Acid (Lac-Hydrin 12% Lotion (225 G)) 0 gm EXT BID [facility]; Protocol Last Admin: 05/30/18 10:11 Dose: 1 applic Ondansetron HCl (Zofran Inj) 4 mg IVP Q6H PRN; Protocol PRN Reason: Nausea/Vomiting Oxycodone/Acetaminophen (Percocet 5/325 Mg Tab) 1 tab PO Q6H PRN; Protocol PRN Reason: Pain, moderate (4-7) Stop: 06/01/18 20:29 Last Admin: 05/29/18 23:54 Dose: 1 tab Polyethylene Glycol (Miralax) 17 gm PO DAILY [facility]; Protocol Last Admin: 05/30/18 10:11 Dose: Not Given - Constitutional Appears: Non-toxic, No Acute Distress - Head Exam Head Exam: ATRAUMATIC, NORMOCEPHALIC - Extremities Exam Additional comments: Bilateral Lower Extremity Exam VASC: DP/PT non-palpable due to sever edema, Temp gradient warm to warm b/l from proximal to distal, Massive b/l LE edema noted up to the knees. Patches of erythema noted b/l of the lower 1/3 of the leg. NEURO: Gross sensation intact. Protective sensation diminished. DERM: Massive b/l LE edema noted up to the knees. Patches of erythema noted b/l of the lower 1/3 of the leg. Skin changes noted on LE b/l R > L in the form of dry patches, cracks and lichnification. Toe nails elongated, dystrophic, discolored and thickened X 10. MSK: No pain on palpation to the feet and legs b/l. Muscle power 5/5 to all groups b/l. - Neurological Exam Neurological Exam: Alert, Awake, Oriented x3 Assessment and Plan - Assessment and Plan (Free Text) Assessment: 67 year old male wSeen and evaluated in the bedside for cellulitis, pain and chronic lymphdema of b/l LE. Plan: Patient seen and evaluated at the bedside Discussed in detail with Dr. Whatley Charts, labs and vitals reviewed; Afebrile, positive leukocytosis of 10.4 Patient refused b/l LE venous duplex and b/l foot x-ray Ordered Lotrisone cream topical BID Ordered Ammonium lactate 12% topical BID IDs on board; Reccs appreciated. Applied b/l Optifoam to the heels for cushioning. Podiatry will continue to follow up the patient while in house <Joe Whatley - Last Filed: 05/30/18 17:10> Objective - Vital Signs/Intake and Output Vital Signs (last 24 hours): Temp Pulse Resp BP Pulse Ox 97.9 F 91 H 20 124/75 96 05/30/18 16:00 05/30/18 16:00 05/30/18 16:00 05/30/18 16:00 05/30/18 16:00 Intake and Output: 05/30/18 05/30/18 06:59 18:59 Intake Total 150 Balance 150 - Medications Medications: Current Medications Acetaminophen (Tylenol 325mg Tab) 325 mg PO Q4H PRN; Protocol PRN Reason: Pain, Mild (1-3) Albuterol/Ipratropium (Duoneb 3 Mg/0.5 Mg (3 Ml) Ud) 3 ml IH Q6H [facility]; Protocol Last Admin: 05/30/18 13:15 Dose: 3 ml Bacitracin (Bacitracin) 1 ea TOP DAILY [facility] Last Admin: 05/30/18 10:11 Dose: 1 ea Betamethasone/Clotrimazole (Lotrisone) 0 gm TOP BID [facility]; Protocol Last Admin: 05/30/18 10:10 Dose: 1 applic Calcium/Vitamin D (Oscal-D 250 Mg-125 Units Tab) 1 tab PO DAILY [facility]; Protocol Last Admin: 05/30/18 10:09 Dose: 1 tab Docusate Sodium (Colace) 100 mg PO BID [facility]; Protocol Last Admin: 05/30/18 10:09 Dose: 100 mg Furosemide (Lasix) 40 mg PO BID [facility]; Protocol Last Admin: 05/30/18 10:10 Dose: 40 mg Ibuprofen (Motrin Tab) 800 mg PO TID [facility]; Protocol Last Admin: 05/30/18 13:15 Dose: Not Given Lactic Acid (Lac-Hydrin 12% Lotion (225 G)) 0 gm EXT BID [facility]; Protocol Last Admin: 05/30/18 10:11 Dose: 1 applic Ondansetron HCl (Zofran Inj) 4 mg IVP Q6H PRN; Protocol PRN Reason: Nausea/Vomiting Oxycodone/Acetaminophen (Percocet 5/325 Mg Tab) 1 tab PO Q6H PRN; Protocol PRN Reason: Pain, moderate (4-7) Stop: 06/01/18 20:29 Last Admin: 05/29/18 23:54 Dose: 1 tab Polyethylene Glycol (Miralax) 17 gm PO DAILY [facility]; Protocol Last Admin: 05/30/18 10:11 Dose: Not Given Attending/Attestation - Attestation I have personally seen and examined this patient.: Yes I have fully participated in the care of the patient.: Yes I have reviewed all pertinent clinical information, including history, physical exam and plan: Yes
--- NOTE | 2018-05-30 13:05 | CP.PCM.HP ---
<Derrek Phillip - Last Filed: 05/30/18 13:07> History of Present Illness - History of Present Illness History of Present Illness: 67-year-old male with past medical history of recently diagnosed multiple myeloma, Chronic lymphedema, and right lower lobe pneumonia presents following admission to the TCU. Patient was desaturating in the TCU with SPO2 of 88%, and x-ray showed right lower lobe pneumonia with atelectasis. Of note patient just had inpatient admission for newly diagnosed multiple myeloma confirmed with bone marrow biopsy and serum electrophoresis. Infectious disease was consulted and patient was placed on cefepime. Hematology/Onc was consulted and recommended outpatient treatment with chemo. Patient with lytic bone lesions and was given recent Zometa treatment. Interventional radiology was consulted and placed a venous port for administration of chemotherapy. Patient initially complained of whole body pain and chest pain related to his multiple myeloma however today the patient states that he feels much better and his pain is well controlled. Patient completed his antibiotics course and is being closely monitored. Podiatry was consulted for his lymphedema. Patient has no complaints at this time. Patient agreeable to go to TCU for more rehab. We will continue all inpatient medications as an outpatient. Patient was seen and examined today at bedside. No acute events overnight. Patient complains about some bilateral lower extremity pain related to his lymphedema and some peeling of the skin. No other complaints 12 point ROS performed and negative other than stated above PMH: As above PSH: Port-A-Cath Medications: Refer to MAR FH: Denies Social history: Patient denies any tobacco, alcohol, or recreational drug use. Allergies: No known allergies Present on Admission - Present on Admission Any Indicators Present on Admission: No Past Patient History - Past Social History Smoking Status: Never Smoked - CARDIAC Hx Hypertension: Yes - PULMONARY Hx Pneumonia: Yes - NEUROLOGICAL Hx Neurological Disorder: No - HEENT Hx HEENT Problems: No - RENAL Hx Chronic Kidney Disease: No - ENDOCRINE/METABOLIC Hx Endocrine Disorders: No - HEMATOLOGICAL/ONCOLOGICAL Hx Blood Disorders: No (lymphedema) Hx Cancer: Yes (multiple myeloma) - INTEGUMENTARY Hx Dermatological Problems: No - MUSCULOSKELETAL/RHEUMATOLOGICAL Hx Falls: No - GASTROINTESTINAL Hx Gastrointestinal Disorders: No - GENITOURINARY/GYNECOLOGICAL Hx Genitourinary Disorders: No Hx Reproductive Disorders: No - PSYCHIATRIC Hx Emotional Abuse: No Hx Physical Abuse: No Hx Substance Use: No - SURGICAL HISTORY Hx Surgeries: No (denies) - ANESTHESIA Hx Anesthesia Reactions: No Hx Malignant Hyperthermia: No Meds Allergies/Adverse Reactions: Allergies Allergy/AdvReac Type Severity Reaction Status Date / Time No Known Allergies Allergy Verified 05/11/18 10:53 Physical Exam - Head Exam Head Exam: ATRAUMATIC, NORMOCEPHALIC - Eye Exam Eye Exam: EOMI, PERRL - ENT Exam ENT Exam: Mucous Membranes Moist - Respiratory Exam Respiratory Exam: Clear to Auscultation Bilateral. absent: Rales, Wheezes - Cardiovascular Exam Cardiovascular Exam: REGULAR RHYTHM, +S1, +S2 - GI/Abdominal Exam GI & Abdominal Exam: Normal Bowel Sounds, Soft. absent: Tenderness - Extremities Exam Extremities exam: Negative for: calf tenderness, pedal edema - Neurological Exam Neurological exam: Alert, CN II-XII Intact, Oriented x3 - Psychiatric Exam Psychiatric exam: Normal Mood - Skin Skin Exam: Dry, Warm Results - Vital Signs Recent Vital Signs: Last Vital Signs Temp Pulse Resp BP 116/68 05/30/18 10:10 Pulse Ox Assessment & Plan - Assessment and Plan (Free Text) Assessment: 1. Right lower lobe healthcare associated pneumonia 2. Recent diagnosis of multiple myeloma 3. Lower extremity lymphedema 4. Hypertension 5. Valvular heart disease 6. BMI 47 Patient finished a course of antibiotics.We will monitor the patient off of antibiotics as per infectious disease. For his pain 2/2 his lytic lesions continue with Motrin and added Percocet. We will follow-up hematology oncology recommendations. Patient was given 1 dose of Zometa. Continue with Lasix p.o. 40 mg daily for his lower extremity lymphedema. Podiatry was consulted for his lymphedema. Encouraged and counseled on importance of diet and exercise. Continue to monitor for any changes. Case and plan was reviewed and discussed with Dr. Harper. <Aramis Harper - Last Filed: 05/30/18 17:07> Results - Vital Signs Recent Vital Signs: Last Vital Signs Temp 97.9 F 05/30/18 16:00 Pulse 91 H 05/30/18 16:00 Resp 20 05/30/18 16:00 BP 124/75 05/30/18 16:00 Pulse Ox 96 05/30/18 16:00 Assessment & Plan - Assessment and Plan (Free Text) Assessment: Pt seen and examined by me. I have reviewed the note of the medical laboratory technicians and I agree with it. I have discussed the assessment and plan with the resident. I have reviewed the medications and the last labs.Pt on TCU for rehab. He has LE lmphedema and is on Lasix. He is not ambulating much and has been sitting for most of the days while in the hospital. Pt is on Motrin and Percocet for pain. He is being followed by Podiatry for his feet and lymphedema. He is being followed by Heme/Onc.
--- NOTE | 2018-05-30 15:36 | CP.PCM.CON ---
History of Present Illness - History of Present Illness History of Present Illness: 67 year old male with PMH of HTN, chronic lymphedema, multiple, myeloma, valvular heart disease, morbid obesity with BMI 47 [place] [facility] [place] shortness [place] breath and dry cough and was found to have probable right lower lobe HCAP. He has finished his course of antibiotics and is now transferred to [facility] for continued medical therapy and physical rehab. Infectious diseases consult is requested to see if the patient still needs antibiotics. He has occasional pain in the legs, and he attributes it to the leg swelling, denies fever or chills, no nausea or vomiting, no chest pain, no SOB, no headache or dizziness, no abdominal pain, no sore throat, no rhinorrhea, no diarrhea, no dysuria. Review of Systems - Review of Systems All systems: reviewed and no additional remarkable complaints except (as per HPI) Past Patient History - Past Social History Smoking Status: Never Smoked - CARDIAC Hx Hypertension: Yes - PULMONARY Hx Pneumonia: Yes - NEUROLOGICAL Hx Neurological Disorder: No - HEENT Hx HEENT Problems: No - RENAL Hx Chronic Kidney Disease: No - ENDOCRINE/METABOLIC Hx Endocrine Disorders: No - HEMATOLOGICAL/ONCOLOGICAL Hx Blood Disorders: No (lymphedema) Hx Cancer: Yes (multiple myeloma) - INTEGUMENTARY Hx Dermatological Problems: No - MUSCULOSKELETAL/RHEUMATOLOGICAL Hx Falls: No - GASTROINTESTINAL Hx Gastrointestinal Disorders: No - GENITOURINARY/GYNECOLOGICAL Hx Genitourinary Disorders: No Hx Reproductive Disorders: No - PSYCHIATRIC Hx Emotional Abuse: No Hx Physical Abuse: No Hx Substance Use: No - SURGICAL HISTORY Hx Surgeries: No (denies) - ANESTHESIA Hx Anesthesia Reactions: No Hx Malignant Hyperthermia: No Meds Allergies/Adverse Reactions: Allergies Allergy/AdvReac Type Severity Reaction Status Date / Time No Known Allergies Allergy Verified 05/11/18 10:53 - Medications Medications: Current Medications Acetaminophen (Tylenol 325mg Tab) 325 mg PO Q4H PRN; Protocol PRN Reason: Pain, Mild (1-3) Albuterol/Ipratropium (Duoneb 3 Mg/0.5 Mg (3 Ml) Ud) 3 ml IH Q6H NAYELY; Protocol Last Admin: 05/30/18 13:15 Dose: 3 ml Bacitracin (Bacitracin) 1 ea TOP DAILY NAYELY Last Admin: 05/30/18 10:11 Dose: 1 ea Betamethasone/Clotrimazole (Lotrisone) 0 gm TOP BID NAYELY; Protocol Last Admin: 05/30/18 10:10 Dose: 1 applic Calcium/Vitamin D (Oscal-D 250 Mg-125 Units Tab) 1 tab PO DAILY NAYELY; Protocol Last Admin: 05/30/18 10:09 Dose: 1 tab Docusate Sodium (Colace) 100 mg PO BID NAYELY; Protocol Last Admin: 05/30/18 10:09 Dose: 100 mg Furosemide (Lasix) 40 mg PO BID NAYELY; Protocol Last Admin: 05/30/18 10:10 Dose: 40 mg Ibuprofen (Motrin Tab) 800 mg PO TID NAYELY; Protocol Last Admin: 05/30/18 13:15 Dose: Not Given Lactic Acid (Lac-Hydrin 12% Lotion (225 G)) 0 gm EXT BID NAYELY; Protocol Last Admin: 05/30/18 10:11 Dose: 1 applic Ondansetron HCl (Zofran Inj) 4 mg IVP Q6H PRN; Protocol PRN Reason: Nausea/Vomiting Oxycodone/Acetaminophen (Percocet 5/325 Mg Tab) 1 tab PO Q6H PRN; Protocol PRN Reason: Pain, moderate (4-7) Stop: 06/01/18 20:29 Last Admin: 05/29/18 23:54 Dose: 1 tab Polyethylene Glycol (Miralax) 17 gm PO DAILY ANYELY; Protocol Last Admin: 05/30/18 10:11 Dose: Not Given Physical Exam - Constitutional Appears: Chronically Ill - Head Exam Head Exam: NORMAL INSPECTION - Respiratory Exam Respiratory Exam: Decreased Breath Sounds - Cardiovascular Exam Cardiovascular Exam: +S1, +S2 - GI/Abdominal Exam GI & Abdominal Exam: Soft. absent: Tenderness - Extremities Exam Extremities exam: Positive for: pedal edema Results - Vital Signs Recent Vital Signs: Last Vital Signs Temp Pulse Resp BP 116/68 05/30/18 10:10 Pulse Ox Assessment & Plan - Assessment and Plan (Free Text) Plan: Assessment right lower lobe hospital-acquired pneumonia, clinically improved and S/P treatment HTN chronic lymphedema multiple myeloma valvular heart disease morbid obesity with BMI 47 Plan completed course of Vancomycin and Cefepime will continue to monitor clinically off antibiotics since he is at risk for nosocomial infections
[2018-05-31] MEDS: Oxycodone/Acetaminophen 5/325 mg Tab PO PRN (01:03)
[2018-05-31 07:29] LABS: BASO # 0.04 K/mm3 (0.0-2.0); BASO % 0.7 % (0.0-3.0); EOS # 0.1 (0.0-0.7); EOS % 1.9 % (1.5-5.0); LYMPH # 0.9 (1.2-3.4); LYMPH % 16.7 % (22.0-35.0); MEAN CELL VOLUME 94.4 fl (80.0-105.0); MEAN CORPUSCULAR HEMOGLOBIN 29.5 pg (25.0-35.0); MEAN CORPUSCULAR HGB CONC 31.3 g/dl (31.0-37.0); MEAN PLATELET VOLUME 9.3 fl (7.0-11.0); MONO # 0.5 (0.1-0.6); MONO % 8.6 % (1.0-6.0); RBC 3.05 10^6/uL (3.5-6.1); RED CELL DISTRIBUTION WIDTH 16.1 % (11.5-14.5); WHITE BLOOD COUNT 5.3 10^3/uL (4.5-11.0)
[2018-05-31] MEDS: Albuterol-Ipratrop 3 mg / 0.5 (3 ml) UD IH SCH ×3 (07:29→20:31)
[2018-05-31 07:32] LABS: ALB/GLOB RATIO 0.7 (1.1-1.8); ALBUMIN 3.6 g/dL (3.0-4.8); ALT/SGPT 20 U/L (7-56); AST/SGOT 42 U/L (17-59); BLOOD UREA NITROGEN 13 mg/dL (7-21); CALCIUM 8.8 mg/dL (8.4-10.5); GFR NON-AFRICAN AMERICAN > 60
[2018-05-31] MEDS: Bacitracin 500 Units/gm Oint Foilpak UD TOP SCH (10:05)
[2018-05-31] MEDS: Ammonium Lactate 12% Lotion (225 g) EXT SCH ×2 (10:06→17:58)
[2018-05-31] MEDS: POLYETHYLENE GLYCOL 3350 17 GM/Dose PACKET PO SCH (10:07)
[2018-05-31] MEDS: Calcium-Vit D 250 mg-125 Units Tab UD PO SCH (10:07)
[2018-05-31] MEDS: Clotrimazole/Betamethasone Cream(15 gm) TOP SCH ×2 (10:07→17:57)
--- NOTE | 2018-05-31 10:51 | CP.PCM.PN ---
<IsiAide - Last Filed: 05/31/18 10:47> Subjective - Date & Time of Evaluation Date of Evaluation: 05/31/18 Time of Evaluation: 10:47 - Subjective Subjective: Podiatry progress note for Dr. Whatley: 67 year old male seen and evaluated in the bedside in TCU for redness, pain and chronic lymphdema of b/l LE. Patient states that he still has pain in left heel. Patient denies any overnight fever or chills, He denies any overnight nausea, vomiting, ,headache, dizziness, diarrhea or dysuria. He states that he had recent episodes of cough and SOB due to pneumonia. Patient states he has a lymphedema pump at home Objective - Vital Signs/Intake and Output Vital Signs (last 24 hours): Temp Pulse Resp BP Pulse Ox 97.9 F 91 H 20 125/70 96 05/30/18 16:00 05/30/18 16:00 05/30/18 16:00 05/31/18 10:32 05/30/18 16:00 Intake and Output: 05/31/18 05/31/18 06:59 18:59 Intake Total 420 Balance 420 - Medications Medications: Current Medications Acetaminophen (Tylenol 325mg Tab) 325 mg PO Q4H PRN; Protocol PRN Reason: Pain, Mild (1-3) Albuterol/Ipratropium (Duoneb 3 Mg/0.5 Mg (3 Ml) Ud) 3 ml IH Q6H NAYELY; Protocol Last Admin: 05/31/18 07:29 Dose: 3 ml Bacitracin (Bacitracin) 1 ea TOP DAILY NAYELY Last Admin: 05/31/18 10:05 Dose: 1 ea Betamethasone/Clotrimazole (Lotrisone) 0 gm TOP BID NAYELY; Protocol Last Admin: 05/31/18 10:07 Dose: Not Given Calcium/Vitamin D (Oscal-D 250 Mg-125 Units Tab) 1 tab PO DAILY NAYELY; Protocol Last Admin: 05/31/18 10:07 Dose: 1 tab Docusate Sodium (Colace) 100 mg PO BID NAYELY; Protocol Last Admin: 05/31/18 10:05 Dose: 100 mg Furosemide (Lasix) 40 mg PO BID NAYELY; Protocol Last Admin: 05/31/18 10:06 Dose: 40 mg Ibuprofen (Motrin Tab) 800 mg PO TID NAYELY; Protocol Last Admin: 05/31/18 10:07 Dose: 800 mg Lactic Acid (Lac-Hydrin 12% Lotion (225 G)) 0 gm EXT BID NAYELY; Protocol Last Admin: 05/31/18 10:06 Dose: Not Given Ondansetron HCl (Zofran Inj) 4 mg IVP Q6H PRN; Protocol PRN Reason: Nausea/Vomiting Oxycodone/Acetaminophen (Percocet 5/325 Mg Tab) 1 tab PO Q6H PRN; Protocol PRN Reason: Pain, moderate (4-7) Stop: 06/01/18 20:29 Last Admin: 05/31/18 01:03 Dose: 1 tab Polyethylene Glycol (Miralax) 17 gm PO DAILY NAYELY; Protocol Last Admin: 05/31/18 10:07 Dose: 17 gm - Labs Labs: 05/31/18 06:00 05/31/18 06:00 - Constitutional Appears: Well, Non-toxic, No Acute Distress - Head Exam Head Exam: ATRAUMATIC, NORMOCEPHALIC - Extremities Exam Additional comments: Bilateral Lower Extremity Exam VASC: DP/PT non-palpable due to sever edema, Temp gradient warm to warm b/l from proximal to distal, Massive b/l LE edema noted up to the knees. Patches of erythema noted b/l of the lower 1/3 of the leg. NEURO: Gross sensation intact. Protective sensation diminished. DERM: Massive b/l LE edema noted up to the knees. Patches of erythema noted b/l of the lower 1/3 of the leg. Skin changes noted on LE b/l R > L in the form of dry patches, cracks and lichenification, no open wounds MSK: severe pain on palpation to left heel. Muscle power 5/5 to all groups b/l. - Neurological Exam Neurological Exam: Alert, Awake, Oriented x3 - Psychiatric Exam Psychiatric exam: Normal Affect, Normal Mood Assessment and Plan - Assessment and Plan (Free Text) Assessment: 67 year old male wSeen and evaluated in the bedside for cellulitis, pain and chronic lymphdema of b/l LE. Plan: Patient seen and evaluated at the bedside with Dr. Whatley Discussed in detail with Dr. Whatley Charts, labs and vitals reviewed; Afebrile, absent leukocytosis Patient refused b/l LE venous duplex and b/l foot x-ray Lotrisone cream topical BID Ammonium lactate 12% topical BID IDs on board; Reccs appreciated. Cleaned both legs and feet with saline, and dressed with DSD and LA Ordered B/L Foot X-ray, to r/o osseous changes, if patient has plantar fasciitis, patient may be treated with anti-inflammatory medications Podiatry will continue to follow up the patient while in house <Joe Whatley - Last Filed: 06/03/18 13:12> Objective - Vital Signs/Intake and Output Vital Signs (last 24 hours): Temp Pulse Resp BP Pulse Ox 98.1 F 86 16 125/67 94 L 06/01/18 10:00 06/01/18 10:00 06/01/18 10:00 06/02/18 09:35 06/01/18 10:00 - Labs Labs: 05/31/18 06:00 05/31/18 06:00 Attending/Attestation - Attestation I have personally seen and examined this patient.: Yes I have fully participated in the care of the patient.: Yes I have reviewed all pertinent clinical information, including history, physical exam and plan: Yes
--- NOTE | 2018-05-31 11:51 | CP.PCM.PN ---
<Derrek Phillip - Last Filed: 05/31/18 11:53> Subjective - Date & Time of Evaluation Date of Evaluation: 05/31/18 Time of Evaluation: 07:45 - Subjective Subjective: Medicine progress note: Patient seen and examined at bedside. No acute events overnight. Patient is complaining of mild bilateral lower extremity pain related to his lymphedema. No other complaints. 12 point ROS performed and negative other than stated above Objective - Vital Signs/Intake and Output Vital Signs (last 24 hours): Temp Pulse Resp BP Pulse Ox 97.9 F 91 H 20 125/70 96 05/30/18 16:00 05/30/18 16:00 05/30/18 16:00 05/31/18 10:32 05/30/18 16:00 Intake and Output: 05/31/18 05/31/18 06:59 18:59 Intake Total 420 Balance 420 - Medications Medications: Current Medications Acetaminophen (Tylenol 325mg Tab) 325 mg PO Q4H PRN; Protocol PRN Reason: Pain, Mild (1-3) Albuterol/Ipratropium (Duoneb 3 Mg/0.5 Mg (3 Ml) Ud) 3 ml IH Q6H NAYELY; Protocol Last Admin: 05/31/18 07:29 Dose: 3 ml Bacitracin (Bacitracin) 1 ea TOP DAILY NAYELY Last Admin: 05/31/18 10:05 Dose: 1 ea Betamethasone/Clotrimazole (Lotrisone) 0 gm TOP BID NAYELY; Protocol Last Admin: 05/31/18 10:07 Dose: Not Given Calcium/Vitamin D (Oscal-D 250 Mg-125 Units Tab) 1 tab PO DAILY NAYELY; Protocol Last Admin: 05/31/18 10:07 Dose: 1 tab Docusate Sodium (Colace) 100 mg PO BID NAYELY; Protocol Last Admin: 05/31/18 10:05 Dose: 100 mg Furosemide (Lasix) 40 mg PO BID NAYELY; Protocol Last Admin: 05/31/18 10:06 Dose: 40 mg Ibuprofen (Motrin Tab) 800 mg PO TID NAYELY; Protocol Last Admin: 05/31/18 10:07 Dose: 800 mg Lactic Acid (Lac-Hydrin 12% Lotion (225 G)) 0 gm EXT BID NAYELY; Protocol Last Admin: 05/31/18 10:06 Dose: Not Given Ondansetron HCl (Zofran Inj) 4 mg IVP Q6H PRN; Protocol PRN Reason: Nausea/Vomiting Oxycodone/Acetaminophen (Percocet 5/325 Mg Tab) 1 tab PO Q6H PRN; Protocol PRN Reason: Pain, moderate (4-7) Stop: 06/01/18 20:29 Last Admin: 05/31/18 01:03 Dose: 1 tab Polyethylene Glycol (Miralax) 17 gm PO DAILY NAYELY; Protocol Last Admin: 05/31/18 10:07 Dose: 17 gm - Labs Labs: 05/31/18 06:00 05/31/18 06:00 - Constitutional Appears: No Acute Distress - Head Exam Head Exam: ATRAUMATIC, NORMOCEPHALIC - Eye Exam Eye Exam: EOMI, PERRL Pupil Exam: NORMAL ACCOMODATION - ENT Exam ENT Exam: Mucous Membranes Moist - Respiratory Exam Respiratory Exam: Clear to Ausculation Bilateral. absent: Rales, Wheezes - Cardiovascular Exam Cardiovascular Exam: REGULAR RHYTHM, +S1, +S2 - GI/Abdominal Exam GI & Abdominal Exam: Soft. absent: Distended, Tenderness - Extremities Exam Extremities Exam: Pedal Edema (b/l lower 2+ ext edema ). absent: Calf Tenderness - Neurological Exam Neurological Exam: Alert, Awake, Oriented x3 - Psychiatric Exam Psychiatric exam: Normal Mood - Skin Skin Exam: Dry, Warm Assessment and Plan - Assessment and Plan (Free Text) Assessment: 1. Right lower lobe healthcare associated pneumonia 2. Recent diagnosis of multiple myeloma 3. Lower extremity lymphedema 4. Hypertension 5. Valvular heart disease 6. BMI 47 Patient finished a course of antibiotics.We will monitor the patient off of antibiotics as per infectious disease. For his pain 2/2 his lytic lesions continue with Motrin and added Percocet. We will follow-up hematology oncology recommendations. Patient was given 1 dose of Zometa. For the patient's lymphedema I ordered a one-time dose of Lasix IV push 40 mg x1. Continue with Lasix PO 40 mg daily. Podiatry was consulted for his lymphedema, will f/u recs. Continue to monitor for any changes. Case and plan was reviewed and discussed with Dr. Harper. <Aramis Harper - Last Filed: 05/31/18 17:38> Objective - Vital Signs/Intake and Output Vital Signs (last 24 hours): Temp Pulse Resp BP Pulse Ox 97.6 F 111 H 16 125/70 92 L 05/31/18 10:00 05/31/18 10:00 05/31/18 10:00 05/31/18 10:32 05/31/18 10:00 Intake and Output: 05/31/18 05/31/18 06:59 18:59 Intake Total 420 Balance 420 - Medications Medications: Current Medications Acetaminophen (Tylenol 325mg Tab) 325 mg PO Q4H PRN; Protocol PRN Reason: Pain, Mild (1-3) Albuterol/Ipratropium (Duoneb 3 Mg/0.5 Mg (3 Ml) Ud) 3 ml IH Q6H NAYELY; Protocol Last Admin: 05/31/18 07:29 Dose: 3 ml Bacitracin (Bacitracin) 1 ea TOP DAILY NAYELY Last Admin: 05/31/18 10:05 Dose: 1 ea Betamethasone/Clotrimazole (Lotrisone) 0 gm TOP BID NAYELY; Protocol Last Admin: 05/31/18 10:07 Dose: Not Given Calcium/Vitamin D (Oscal-D 250 Mg-125 Units Tab) 1 tab PO DAILY NAYELY; Protocol Last Admin: 05/31/18 10:07 Dose: 1 tab Docusate Sodium (Colace) 100 mg PO BID NAYELY; Protocol Last Admin: 05/31/18 10:05 Dose: 100 mg Furosemide (Lasix) 40 mg PO BID NAYELY; Protocol Last Admin: 05/31/18 10:06 Dose: 40 mg Ibuprofen (Motrin Tab) 800 mg PO TID NAYELY; Protocol Last Admin: 05/31/18 13:22 Dose: Not Given Lactic Acid (Lac-Hydrin 12% Lotion (225 G)) 0 gm EXT BID NAYELY; Protocol Last Admin: 05/31/18 10:06 Dose: Not Given Ondansetron HCl (Zofran Inj) 4 mg IVP Q6H PRN; Protocol PRN Reason: Nausea/Vomiting Oxycodone/Acetaminophen (Percocet 5/325 Mg Tab) 1 tab PO Q6H PRN; Protocol PRN Reason: Pain, moderate (4-7) Stop: 06/01/18 20:29 Last Admin: 05/31/18 01:03 Dose: 1 tab Pantoprazole Sodium (Protonix Ec Tab) 40 mg PO 0600 NAYELY Polyethylene Glycol (Miralax) 17 gm PO DAILY NAYELY; Protocol Last Admin: 05/31/18 10:07 Dose: 17 gm - Labs Labs: 05/31/18 06:00 05/31/18 06:00 Assessment and Plan - Assessment and Plan (Free Text) Assessment: Pt seen and examined by me. I have reviewed the note of the chief medical technologist and I agree with it. I have discussed the assessment and plan with the resident. I have reviewed the medications and the last labs. Pt with HCAP and now is finish ed with Abx. He is deconditioned and needs rehab/PT. He was able to sleep in the bed yesterday. His Lymphedema must be improving. He was not able to sleep before due to PND. His BP is controlled. He is eating fine. Son at the bedside.
--- NOTE | 2018-05-31 12:53 | RAD ---
Date of service: 05/31/2018 PROCEDURE: Right Foot Radiographs. HISTORY: r/o osteo COMPARISON: None. FINDINGS: BONES: Bone alignment and mineralization are normal. There is no acute displaced fracture or bone destruction. JOINTS: There is moderate degenerative osteoarthrosis in the talonavicular joint. SOFT TISSUES: There is severe dorsal soft tissue swelling and soft tissue edema. OTHER FINDINGS: None. IMPRESSION: No radiographic evidence for osteomyelitis. Severe soft tissue swelling and edema in the dorsum of the foot most compatible with cellulitis. An MRI of the foot without and with intravenous contrast is a more sensitive modality for evaluation of early osteomyelitis.
--- NOTE | 2018-05-31 12:54 | RAD ---
Date of service: 05/31/2018 PROCEDURE: Left Foot Radiographs. HISTORY: r/o osteo COMPARISON: None. FINDINGS: BONES: Bone alignment and mineralization are normal. There is no acute displaced fracture or bone destruction. JOINTS: Normal. SOFT TISSUES: Severe dorsal soft tissue swelling. OTHER FINDINGS: None. IMPRESSION: No acute fracture or bone destruction. Severe dorsal soft tissue swelling. An MRI of the foot without and with intravenous contrast is a more sensitive modality for evaluation of early acute osteomyelitis.
[2018-05-31 17:02] VITALS: RESP 16
--- NOTE | 2018-05-31 18:52 | PN ---
DATE: 05/31/2018 SUBJECTIVE: Patient is in bed in no acute distress, nontoxic. PHYSICAL EXAMINATION: VITAL SIGNS: Temperature is 97, blood pressure is 120/70, respiratory rate of 18. HEENT: Unremarkable. NECK: Supple. LUNGS: Have decreased breath sounds. HEART: Normal S1 and S2. ABDOMEN: Soft, nontender. LABORATORY DATA: Reveals the patient's white count is 5.3, hemoglobin of 9. Chemistries are noted. Microbiology reveals the cultures from the acute care from 05/22/2018, there is no growth and review of orders reveals the patient to be on no antibiotics. ASSESSMENT AND PLAN: This is a 67-year-old male with history of multiple myeloma, valvular heart disease, chronic lymphedema, hypertension, morbid obesity, body mass index of 47 with a right lower lobe hospital-acquired pneumonia, status post treatment and hypertension, chronic lymphedema, multiple myeloma. Currently off antibiotics, afebrile. The patient is at risk for developing nosocomial infections. We will follow closely with you. Chinedu Pacheoc MD
[2018-06-01] MEDS: Albuterol-Ipratrop 3 mg / 0.5 (3 ml) UD IH SCH ×3 (01:57→13:34)
[2018-06-01] MEDS: Oxycodone/Acetaminophen 5/325 mg Tab PO PRN (04:04)
[2018-06-01] MEDS: Pantoprazole 40 mg EC Tab PO SCH ×2 (05:35→05:43)
[2018-06-01] MEDS: Ammonium Lactate 12% Lotion (225 g) EXT SCH ×2 (11:02→17:08)
[2018-06-01] MEDS: POLYETHYLENE GLYCOL 3350 17 GM/Dose PACKET PO SCH (11:04)
[2018-06-01] MEDS: Clotrimazole/Betamethasone Cream(15 gm) TOP SCH ×2 (11:04→17:09)
[2018-06-01] MEDS: Calcium-Vit D 250 mg-125 Units Tab UD PO SCH (11:05)
--- NOTE | 2018-06-01 11:13 | CP.PCM.PN ---
<Derrek Phillip - Last Filed: 06/01/18 11:13> Subjective - Date & Time of Evaluation Date of Evaluation: 06/01/18 Time of Evaluation: 08:20 - Subjective Subjective: Medicine progress note: Patient seen and examined at bedside in the TCU. No acute events overnight. Patient along with the patient's son plane of some mild pain and swelling of his lower extremities related to his lymphedema. No other complaints. 12 point ROS performed and negative other than stated above Objective - Vital Signs/Intake and Output Vital Signs (last 24 hours): Temp Pulse Resp BP Pulse Ox 97.6 F 111 H 16 122/72 92 L 05/31/18 10:00 05/31/18 10:00 05/31/18 10:00 05/31/18 17:57 05/31/18 10:00 Intake and Output: 06/01/18 06/01/18 06:59 18:59 Intake Total 420 Balance 420 - Medications Medications: Current Medications Acetaminophen (Tylenol 325mg Tab) 325 mg PO Q4H PRN; Protocol PRN Reason: Pain, Mild (1-3) Albuterol/Ipratropium (Duoneb 3 Mg/0.5 Mg (3 Ml) Ud) 3 ml IH Q6H NAYELY; Protocol Last Admin: 06/01/18 01:57 Dose: 3 ml Bacitracin (Bacitracin) 1 ea TOP DAILY NAYELY Last Admin: 05/31/18 10:05 Dose: 1 ea Betamethasone/Clotrimazole (Lotrisone) 0 gm TOP BID NAYELY; Protocol Last Admin: 05/31/18 17:57 Dose: 1 applic Calcium/Vitamin D (Oscal-D 250 Mg-125 Units Tab) 1 tab PO DAILY NAYELY; Protocol Last Admin: 05/31/18 10:07 Dose: 1 tab Docusate Sodium (Colace) 100 mg PO BID NAYELY; Protocol Last Admin: 05/31/18 17:57 Dose: 100 mg Furosemide (Lasix) 40 mg PO BID NAYELY; Protocol Last Admin: 05/31/18 17:57 Dose: 40 mg Ibuprofen (Motrin Tab) 800 mg PO TID NAYELY; Protocol Last Admin: 05/31/18 17:57 Dose: Not Given Lactic Acid (Lac-Hydrin 12% Lotion (225 G)) 0 gm EXT BID NAYELY; Protocol Last Admin: 05/31/18 17:58 Dose: 1 applic Ondansetron HCl (Zofran Inj) 4 mg IVP Q6H PRN; Protocol PRN Reason: Nausea/Vomiting Oxycodone/Acetaminophen (Percocet 5/325 Mg Tab) 1 tab PO Q6H PRN; Protocol PRN Reason: Pain, moderate (4-7) Stop: 06/01/18 20:29 Last Admin: 06/01/18 04:04 Dose: 1 tab Pantoprazole Sodium (Protonix Ec Tab) 40 mg PO 0600 [facility] Last Admin: 06/01/18 05:43 Dose: Not Given Polyethylene Glycol (Miralax) 17 gm PO DAILY NAYELY; Protocol Last Admin: 05/31/18 10:07 Dose: 17 gm - Labs Labs: 05/31/18 06:00 05/31/18 06:00 - Constitutional Appears: No Acute Distress - Head Exam Head Exam: ATRAUMATIC, NORMOCEPHALIC - Eye Exam Eye Exam: EOMI - ENT Exam ENT Exam: Mucous Membranes Moist - Respiratory Exam Respiratory Exam: Clear to Ausculation Bilateral. absent: Wheezes - Cardiovascular Exam Cardiovascular Exam: REGULAR RHYTHM, +S1, +S2 - GI/Abdominal Exam GI & Abdominal Exam: Soft. absent: Distended, Guarding, Tenderness - Extremities Exam Extremities Exam: Pedal Edema. absent: Calf Tenderness Additional comments: 2+ With associated lymphedema - Neurological Exam Neurological Exam: Alert, Awake, Oriented x3 - Psychiatric Exam Psychiatric exam: Normal Mood - Skin Skin Exam: Dry, Warm Assessment and Plan - Assessment and Plan (Free Text) Assessment: 1. Right lower lobe healthcare associated pneumonia 2. Recent diagnosis of multiple myelomaHello 3. Lower extremity lymphedema 4. Hypertension 5. Valvular heart disease 6. BMI 47 Patient has brought from home antibiotics including Levaquin and dicloxacillin. The patient states that he uses this when his lower extremities get infected. H e states that he has been using this for 48 years on and off. The patient not to take any antibiotics at this time. We will monitor the patient off of antibiotics as per ID. For his pain 2/2 his lytic lesions continue with Motrin and Percocet. We will follow-up hematology oncology recommendations. Patient was given 1 dose of Zometa. For the patient's lymphedema Continue with Lasix PO 40 mg daily. Podiatry was consulted for his lymphedema, will f/u recs. X-ray of the foot bilateral, showed cellulitis with no obvious signs of osteomyelitis. Continue to monitor for any changes. Case and plan was reviewed and discussed with Dr. Harper. <Aramis Harper S - Last Filed: 06/01/18 18:30> Objective - Vital Signs/Intake and Output Vital Signs (last 24 hours): Temp Pulse Resp BP Pulse Ox 98.1 F 86 16 137/75 94 L 06/01/18 10:00 06/01/18 10:00 06/01/18 10:00 06/01/18 17:09 06/01/18 10:00 Intake and Output: 06/01/18 06/01/18 06:59 18:59 Intake Total 420 Balance 420 - Medications Medications: Current Medications Acetaminophen (Tylenol 325mg Tab) 325 mg PO Q4H PRN; Protocol PRN Reason: Pain, Mild (1-3) Albuterol/Ipratropium (Duoneb 3 Mg/0.5 Mg (3 Ml) Ud) 3 ml IH Q6H NAYELY; Protocol Last Admin: 06/01/18 13:34 Dose: 3 ml Bacitracin (Bacitracin) 1 ea TOP DAILY NAYELY Last Admin: 06/01/18 12:32 Dose: Not Given Betamethasone/Clotrimazole (Lotrisone) 0 gm TOP BID NAYELY; Protocol Last Admin: 06/01/18 17:09 Dose: Not Given Calcium/Vitamin D (Oscal-D 250 Mg-125 Units Tab) 1 tab PO DAILY NAYELY; Protocol Last Admin: 06/01/18 11:05 Dose: 1 tab Docusate Sodium (Colace) 100 mg PO BID NAYELY; Protocol Last Admin: 06/01/18 17:08 Dose: 100 mg Furosemide (Lasix) 40 mg PO BID NAYELY; Protocol Last Admin: 06/01/18 17:09 Dose: 40 mg Ibuprofen (Motrin Tab) 800 mg PO TID NAYELY; Protocol Last Admin: 06/01/18 17:10 Dose: Not Given Lactic Acid (Lac-Hydrin 12% Lotion (225 G)) 0 gm EXT BID NAYELY; Protocol Last Admin: 06/01/18 17:08 Dose: Not Given Oxycodone/Acetaminophen (Percocet 5/325 Mg Tab) 1 tab PO Q6H PRN; Protocol PRN Reason: Pain, moderate (4-7) Stop: 06/01/18 20:29 Last Admin: 06/01/18 04:04 Dose: 1 tab Pantoprazole Sodium (Protonix Ec Tab) 40 mg PO 0600 NAYELY Last Admin: 06/01/18 05:43 Dose: Not Given Polyethylene Glycol (Miralax) 17 gm PO DAILY NAYELY; Protocol Last Admin: 06/01/18 11:04 Dose: 17 gm - Labs Labs: 05/31/18 06:00 05/31/18 06:00 Assessment and Plan - Assessment and Plan (Free Text) Assessment: Pt seen and examined by me. I have reviewed the note of the medical coding specialist and I agree with it. I have discussed the assessment and plan with the resident. I have reviewed the medications and the last labs.
--- NOTE | 2018-06-01 12:20 | CP.PCM.PN ---
<Joe Snowdenasuncion - Last Filed: 06/01/18 12:16> Subjective - Date & Time of Evaluation Date of Evaluation: 06/01/18 Time of Evaluation: 12:16 - Subjective Subjective: Podiatry progress note for Dr. Whatley: 67 year old male seen and evaluated in the bedside in TCU for redness, pain and chronic lymphdema of b/l LE. Patient states that his pain to the extremities has significantly improved since yesterday. Patient denies any overnight fever or chills, He denies any overnight nausea, vomiting, ,headache, dizziness, diarrhea or dysuria. Patient's son is present at bedside, and patient states it will be difficult to do another dressing change today. Patient likely to be discharged tomorrow morning. Patient states he does not have a Acetone Recovery Worker at home. Objective - Vital Signs/Intake and Output Vital Signs (last 24 hours): Temp Pulse Resp BP Pulse Ox 97.6 F 111 H 16 144/74 92 L 05/31/18 10:00 05/31/18 10:00 05/31/18 10:00 06/01/18 11:03 05/31/18 10:00 Intake and Output: 06/01/18 06/01/18 06:59 18:59 Intake Total 420 Balance 420 - Medications Medications: Current Medications Acetaminophen (Tylenol 325mg Tab) 325 mg PO Q4H PRN; Protocol PRN Reason: Pain, Mild (1-3) Albuterol/Ipratropium (Duoneb 3 Mg/0.5 Mg (3 Ml) Ud) 3 ml IH Q6H NAYELY; Protocol Last Admin: 06/01/18 01:57 Dose: 3 ml Bacitracin (Bacitracin) 1 ea TOP DAILY NAYELY Last Admin: 05/31/18 10:05 Dose: 1 ea Betamethasone/Clotrimazole (Lotrisone) 0 gm TOP BID NAYELY; Protocol Last Admin: 06/01/18 11:04 Dose: Not Given Calcium/Vitamin D (Oscal-D 250 Mg-125 Units Tab) 1 tab PO DAILY NAYELY; Protocol Last Admin: 06/01/18 11:05 Dose: 1 tab Docusate Sodium (Colace) 100 mg PO BID NAYELY; Protocol Last Admin: 06/01/18 11:01 Dose: 100 mg Furosemide (Lasix) 40 mg PO BID NAYELY; Protocol Last Admin: 06/01/18 11:03 Dose: 40 mg Ibuprofen (Motrin Tab) 800 mg PO TID NAYELY; Protocol Last Admin: 06/01/18 11:05 Dose: Not Given Lactic Acid (Lac-Hydrin 12% Lotion (225 G)) 0 gm EXT BID NAYELY; Protocol Last Admin: 06/01/18 11:02 Dose: Not Given Ondansetron HCl (Zofran Inj) 4 mg IVP Q6H PRN; Protocol PRN Reason: Nausea/Vomiting Oxycodone/Acetaminophen (Percocet 5/325 Mg Tab) 1 tab PO Q6H PRN; Protocol PRN Reason: Pain, moderate (4-7) Stop: 06/01/18 20:29 Last Admin: 06/01/18 04:04 Dose: 1 tab Pantoprazole Sodium (Protonix Ec Tab) 40 mg PO 0600 NAYELY Last Admin: 06/01/18 05:43 Dose: Not Given Polyethylene Glycol (Miralax) 17 gm PO DAILY NAYELY; Protocol Last Admin: 06/01/18 11:04 Dose: 17 gm - Labs Labs: 05/31/18 06:00 05/31/18 06:00 - Constitutional Appears: Well, Non-toxic, No Acute Distress - Head Exam Head Exam: ATRAUMATIC, NORMOCEPHALIC - Extremities Exam Additional comments: Bilateral Lower Extremity Exam VASC: DP/PT non-palpable due to sever edema, Temp gradient warm to warm b/l from proximal to distal, Massive b/l LE edema noted up to the knees. Patches of erythema noted b/l of the lower 1/3 of the leg. NEURO: Gross sensation intact. Protective sensation diminished. DERM: Massive b/l LE edema noted up to the knees. Patches of erythema noted b/l of the lower 1/3 of the leg. Skin changes noted on LE b/l R > L in the form of dry patches, cracks and lichenification, no open wounds MSK: severe pain on palpation to left heel. Muscle power 5/5 to all groups b/l. - Neurological Exam Neurological Exam: Alert, Awake, Oriented x3 - Psychiatric Exam Psychiatric exam: Normal Affect, Normal Mood Assessment and Plan - Assessment and Plan (Free Text) Assessment: 67 year old male Seen and evaluated in the bedside for cellulitis, pain and chronic lymphdema of b/l LE. Plan: Patient seen and evaluated at the bedside Discussed in detail with Dr. Whatley Charts, labs and vitals reviewed- Afebrile, absent leukocytosis Lotrisone cream topical BID Ammonium lactate 12% topical BID IDs on board; Reccs appreciated. Dressing kept intact, noted to be C/D/I B/L Foot X-ray: significant soft tissue swelling, no osteo noted on x-ray, MRI recommended if suspicious Podiatry is not suspicious of osteo at this time as there are no open wounds to bilateral lower extremities Patient stating improvement since appliing LA bandages Podiatry will continue to follow up the patient while in house <Joe Whatley - Last Filed: 06/03/18 13:12> Objective - Vital Signs/Intake and Output Vital Signs (last 24 hours): Temp Pulse Resp BP Pulse Ox 98.1 F 86 16 125/67 94 L 06/01/18 10:00 06/01/18 10:00 06/01/18 10:00 06/02/18 09:35 06/01/18 10:00 - Labs Labs: 05/31/18 06:00 05/31/18 06:00 Attending/Attestation - Attestation I have personally seen and examined this patient.: Yes I have fully participated in the care of the patient.: Yes I have reviewed all pertinent clinical information, including history, physical exam and plan: Yes
[2018-06-01] MEDS: Bacitracin 500 Units/gm Oint Foilpak UD TOP SCH (12:32)
[2018-06-01 17:03] VITALS: PULSE 86; TEMP 98.1; O2SAT 94
--- NOTE | 2018-06-01 17:37 | PN ---
DATE: 06/01/2018 SUBJECTIVE: The patient is seen earlier today in room 318. The patient is doing well. His son is in the room who states that the patient is slowly improving. PHYSICAL EXAMINATION: VITAL SIGNS: Temperature is 98, blood pressure is 140/70, respiratory rate of 18. HEENT: Unremarkable. NECK: Supple. LUNGS: Decreased breath sounds. HEART: Normal S1 and S2. ABDOMEN: Soft. LABORATORY DATA: Laboratory examination reveals a white count of 5.3, hemoglobin of 9, platelets of 319. BUN of 13, creatinine of 0.7. Microbiology is noted. Review of orders reveals the patient to be off of antibiotics. ASSESSMENT AND PLAN: This is a 67-year-old with history of multiple myeloma, valvular heart disease, chronic lymphedema, hypertension, morbid obesity, body mass index of 47, right lower lobe hospital-acquired pneumonia, status post treatment. The patient with hypertension, chronic lymphedema, multiple myeloma. Currently off antibiotics, afebrile. The patient is at risk for developing nosocomial infections. Chinedu Pacheco MD
--- NOTE | 2018-06-01 21:26 | PN ---
DATE: 06/01/2018 This is coverage for Dr. Garcia. SUBJECTIVE: The patient was seen and examined by me. I did review the note of the medical records library professor. The patient is feeling comfortable the pain. His creatinine is 0.7, hemoglobin is 9. He continues to have lower extremity lymphedema. He has a diagnosis of myeloma that will need treatment. The patient will be discussing his options with Dr. Garcia tomorrow. The patient has healthcare associated pneumonia that was treated. He has hypertension. He is eating well. I did speak to the patient's son at the bedside. The patient is receiving Lasix daily for his lymphedema. He is on ibuprofen for pain. He is receiving calcium replacement. The patient is going to continue with Tylenol as needed. I will discontinue his Zofran and renew his Percocet for his pain. Aramis Harper MD
--- NOTE | 2018-06-01 23:37 | CP.PCM.CON ---
History of Present Illness - History of Present Illness History of Present Illness: Covering Dr. Godinez 67 year old male with a history of chronic lymphedema, recently diagnosed multiple myeloma with lytic bone lesions, awaiting treatment, discharged from the hospital for pneumonia, currently in rehab. The patient notes to breathing better. He is concerned about worsening of his lower extremity lymphedema. In regards to his multiple myeloma, he did receive a dose of Zometa with Dr. Godinez and is scheduled to start chemotherapy with her on . Past medical history: Chronic lymphedema, multiple myeloma Past surgical history: Portacath Family history: Denies hematologic and oncologic problmes Social history: Denies tobacco, alcohol, and illicit drug use. Allergies: NKA Review of systems: All remaining review of systems including HEENT, cardiovascular, respiratory, gastrointestinal, genitourinary, musculoskeletal, dermatologic, neurologic, and psychaitric are negative unless mentioned in the HPI. Past Patient History - Past Social History Smoking Status: Never Smoked - CARDIAC Hx Hypertension: Yes - PULMONARY Hx Pneumonia: Yes - NEUROLOGICAL Hx Neurological Disorder: No - HEENT Hx HEENT Problems: No - RENAL Hx Chronic Kidney Disease: No - ENDOCRINE/METABOLIC Hx Endocrine Disorders: No - HEMATOLOGICAL/ONCOLOGICAL Hx Blood Disorders: No (lymphedema) Hx Cancer: Yes (multiple myeloma) - INTEGUMENTARY Hx Dermatological Problems: No - MUSCULOSKELETAL/RHEUMATOLOGICAL Hx Falls: No - GASTROINTESTINAL Hx Gastrointestinal Disorders: No - GENITOURINARY/GYNECOLOGICAL Hx Genitourinary Disorders: No Hx Reproductive Disorders: No - PSYCHIATRIC Hx Emotional Abuse: No Hx Physical Abuse: No Hx Substance Use: No - SURGICAL HISTORY Hx Surgeries: No (denies) - ANESTHESIA Hx Anesthesia Reactions: No Hx Malignant Hyperthermia: No Meds Allergies/Adverse Reactions: Allergies Allergy/AdvReac Type Severity Reaction Status Date / Time No Known Allergies Allergy Verified 05/11/18 10:53 - Medications Medications: Current Medications Acetaminophen (Tylenol 325mg Tab) 325 mg PO Q4H PRN; Protocol PRN Reason: Pain, Mild (1-3) Albuterol/Ipratropium (Duoneb 3 Mg/0.5 Mg (3 Ml) Ud) 3 ml IH Q6H NAYELY; Protocol Last Admin: 06/01/18 13:34 Dose: 3 ml Bacitracin (Bacitracin) 1 ea TOP DAILY NAYELY Last Admin: 06/01/18 12:32 Dose: Not Given Betamethasone/Clotrimazole (Lotrisone) 0 gm TOP BID NAYELY; Protocol Last Admin: 06/01/18 17:09 Dose: Not Given Calcium/Vitamin D (Oscal-D 250 Mg-125 Units Tab) 1 tab PO DAILY NAYELY; Protocol Last Admin: 06/01/18 11:05 Dose: 1 tab Docusate Sodium (Colace) 100 mg PO BID NAYELY; Protocol Last Admin: 06/01/18 17:08 Dose: 100 mg Furosemide (Lasix) 40 mg PO BID NAYELY; Protocol Last Admin: 06/01/18 17:09 Dose: 40 mg Ibuprofen (Motrin Tab) 800 mg PO TID NAYELY; Protocol Last Admin: 06/01/18 17:10 Dose: Not Given Lactic Acid (Lac-Hydrin 12% Lotion (225 G)) 0 gm EXT BID NAYELY; Protocol Last Admin: 06/01/18 17:08 Dose: Not Given Pantoprazole Sodium (Protonix Ec Tab) 40 mg PO 0600 NAYELY Last Admin: 06/01/18 05:43 Dose: Not Given Polyethylene Glycol (Miralax) 17 gm PO DAILY NAYELY; Protocol Last Admin: 06/01/18 11:04 Dose: 17 gm Physical Exam - Head Exam Head Exam: ATRAUMATIC - Eye Exam Eye Exam: Normal appearance - ENT Exam ENT Exam: Mucous Membranes Dry - Respiratory Exam Respiratory Exam: NORMAL BREATHING PATTERN - Cardiovascular Exam Cardiovascular Exam: +S1, +S2 - GI/Abdominal Exam GI & Abdominal Exam: Normal Bowel Sounds - Extremities Exam Extremities exam: Positive for: pedal edema - Neurological Exam Neurological exam: Oriented x3 - Psychiatric Exam Psychiatric exam: Normal Affect, Normal Mood - Skin Skin Exam: Warm Results - Vital Signs Recent Vital Signs: Last Vital Signs Temp 98.1 F 06/01/18 10:00 Pulse 86 06/01/18 10:00 Resp 16 06/01/18 10:00 BP 137/75 06/01/18 17:09 Pulse Ox 94 L 06/01/18 10:00 - Labs Result Diagrams: 05/31/18 06:00 05/31/18 06:00 Assessment & Plan (1) Anemia Assessment and Plan: chronic disease, multiple myeloma Status: Acute (2) Multiple myeloma Assessment and Plan: outpatient treatment with Dr. Godinez Thank you for this interesting consult. Status: Acute
[2018-06-02] MEDS: Albuterol-Ipratrop 3 mg / 0.5 (3 ml) UD IH SCH ×2 (01:33→07:20)
[2018-06-02] MEDS: Pantoprazole 40 mg EC Tab PO SCH (05:35)
[2018-06-02] MEDS: Bacitracin 500 Units/gm Oint Foilpak UD TOP SCH (09:34)
[2018-06-02] MEDS: Ammonium Lactate 12% Lotion (225 g) EXT SCH (09:35)
[2018-06-02] MEDS: Clotrimazole/Betamethasone Cream(15 gm) TOP SCH (09:35)
[2018-06-02] MEDS: POLYETHYLENE GLYCOL 3350 17 GM/Dose PACKET PO SCH (09:36)
[2018-06-02] MEDS: Calcium-Vit D 250 mg-125 Units Tab UD PO SCH (09:36)
[2018-06-02 09:44] VITALS: BP 125/67
--- NOTE | 2018-06-02 14:15 | CP.PCM.PN ---
Subjective - Date & Time of Evaluation Date of Evaluation: 06/02/18 Time of Evaluation: 09:35 - Subjective Subjective: Podiatry progress note for Dr. Thurman: 67 year old male seen and evaluated in the bedside in TCU for redness, pain and chronic lymphdema of b/l LE. Patient states that his pain to the extremities has significantly improved now. Patient denies any overnight fever or chills, He denies any overnight nausea, vomiting, ,headache, dizziness, diarrhea or dysuria. Patient's son is present at bedside. Patient will be discharged home later today Objective - Vital Signs/Intake and Output Vital Signs (last 24 hours): Temp Pulse Resp BP Pulse Ox 98.1 F 86 16 125/67 94 L 06/01/18 10:00 06/01/18 10:00 06/01/18 10:00 06/02/18 09:35 06/01/18 10:00 Intake and Output: 06/02/18 06/02/18 06:59 18:59 Intake Total 420 Balance 420 - Labs Labs: 05/31/18 06:00 05/31/18 06:00 - Constitutional Appears: Non-toxic, No Acute Distress - Head Exam Head Exam: ATRAUMATIC, NORMOCEPHALIC - Extremities Exam Additional comments: B/L LE focused exam: Dressing kept intact, noted to be C/D/I - Neurological Exam Neurological Exam: Alert, Awake, Oriented x3 Assessment and Plan - Assessment and Plan (Free Text) Assessment: 67 year old male Seen and evaluated in the bedside for cellulitis, pain and chronic lymphdema of b/l LE. Plan: Patient seen and evaluated at the bedside with Dr. Thurman Discussed in detail with Dr. Thurman Charts, labs and vitals reviewed- Afebrile, absent leukocytosis Continue Lotrisone cream topical BID at home Continue Ammonium lactate 12% topical BID at home. Dressing kept intact, noted to be C/D/I B/L Foot X-ray: significant soft tissue swelling, no osteo noted on x-ray, MRI recommended if suspicious Podiatry is not suspicious of osteo at this time as there are no open wounds to bilateral lower extremities Patient stating improvement since applying LA bandages. Patient advised to get tubigrip and apply it at home. Podiatry will continue to follow up the patient while in house Patient to follow up with Dr. Thurman, Dr. Whatley after discharge.
== END 2018-06-02 12:11 | disposition home or self-care (01) | DRG 194 ==
LOC: TRCU 19:30
PROVIDERS: ADMIT Internal Medicine; ATTEND Internal Medicine
PROC: F07Z9FZ Gait Training/Functional Ambulation Treatment using Assistive, Adaptive, Supportive or Protective Equipment (ICD-10-PCS; principal; 2018-05-30)
PROC: F07M6ZZ Therapeutic Exercise Treatment of Musculoskeletal System - Whole Body (ICD-10-PCS; 2018-05-30)
PROC: F08Z2ZZ Grooming/Personal Hygiene Treatment (ICD-10-PCS; 2018-05-30)
PROC: F08Z1ZZ Dressing Techniques Treatment (ICD-10-PCS; 2018-05-30)
PROC: F08Z0ZZ Bathing/Showering Techniques Treatment (ICD-10-PCS; 2018-05-30)
PROC: F08Z3ZZ Feeding/Eating Treatment (ICD-10-PCS; 2018-05-30)
DX: J18.1 Lobar pneumonia, unspecified organism (principal); C90.00 Multiple myeloma not having achieved remission; J98.11 Atelectasis; L03.116 Cellulitis of left lower limb; L03.115 Cellulitis of right lower limb; Z68.42 Body mass index [BMI] 45.0-49.9, adult; E66.01 Morbid (severe) obesity due to excess calories; G89.3 Neoplasm related pain (acute) (chronic); I10 Essential (primary) hypertension; I89.0 Lymphedema, not elsewhere classified; Y95 Nosocomial condition; Z87.01 Personal history of pneumonia (recurrent)